=== PATIENT | female | born 1960 | race Caucasian/White ===

== ENCOUNTER → 2016-09-10 10:05 | Outpatient (CLI) | payer OTHER ==
[2015-07-18 07:23] VITALS: BMI 23.0
[~2016-09-10 10:05] MED LIST: ASPIRIN325 MG; ASPIRIN81 MG PO; BYSTOLIC2.5 MG PO; CYCLOBENZAPRINE10 MG PO; FLEXERIL10 MG PO; FUROSEMIDE20 MG PO; KLONOPIN1 MG; METHADOSE10 MG PO; NEURONTIN 300300 MG; NORCO 10/325 TA1 TA1; NORCO 10/325 TA1 TA1 PO; NORVASC10 MG PO; PLAVIX75 MG PO; PRILOSEC20 MG PO; PROZAC40 MG PO; TOFRANIL50 MG; XANAX1 MG PO; ZOCOR20 MG PO
== END | disposition home or self-care (01) ==
LOC: D.CN 10:00 → D.MRI 10:05
DX: R55 Syncope and collapse (principal); I63.139 Cerebral infarction due to embolism of unspecified carotid artery

== ENCOUNTER → 2016-10-19 07:50 | Outpatient (CLI) | payer OTHER ==
[~2016-10-19] VITALS: Ht 180.3 cm; Wt 79.5 kg
--- NOTE | ~2016-10-19 | HEMODYNAMI ---
PATIENT:MACARENA JOSEPH MEDICAL RECORD: [id number] : 58 LOCATION:[facility] ADMISSION DATE: 10/19/16 Generatedon:10/19/201610:58 Patient name: MACARENA JOSEPH Patient #: [id number] SSN: : 1960 Date of study: 10/19/2016 Page: Of Hemodynamic Procedure Report Patient Data Patient Demographics Procedure consent was obtained First Name: MACARENA Gender: Female Last Name: JAKE : 1960 Middle Initial: SACHIN Age: 56 year(s) Patient #: [id number] Race: Additional ID: [id number] Contact details Address: [address] [place] [address] [facility] State: [place] City: [place] Zip code: [address] Past Medical History History of disease Date Diagnosis Comments Peripheral vascular disease Chronic lung disease->COPD CAD Allergies Allergen Reaction Date Comments Reported Other allergy 12/24/2014 sulfa Sulfa drugs 10/19/2016 Admission Admission Data Admission Date: 10/19/2016 Admission Time: 7:50 Lab Results Lab Result Date: 10/19/2016 Lab Result Time: 0:00 Biochemistry Name Units Result Min Max Creatinine mg/dl 1.2 --(---*)-- 0.6 1.3 CBC Name Units Result Min Max Hemoglobin g/dl 14 --(*---)-- 13.5 17.5 Procedure Procedure Types Cath Procedure Diagnostic Procedure [facility] w/Coronaries PCI Procedure Coronary Stent Initial Miscellaneous Procedures Moderate Sedation up to 30 minutes Procedure Description Procedure Date Procedure Date: 10/19/2016 Procedure Start Time: 10:38 Procedure End Time: 10:57 Procedure Staff Name Function Delio Sanford MD Performing Physician Mariam Tracey RT Scrub Altaf Graves RT Scrub Lacho Rich RN Nurse Radha Posey RT Monitor Procedure Data Cath Procedure Fluoroscopy Diagnostic fluoroscopy Total fluoroscopy Time: 2.8 time: 2.8 min min Diagnostic fluoroscopy Total fluoroscopy dose: 347 dose: 347 mGy mGy Contrast Material Contrast Material Type Amount (ml) Isovue 300 119 Entry Location Entry Primary Successful Side Size Upsize Upsize Entry Closure Succes sful Closure Location (Fr) 1 (Fr) 2 (Fr) Remarks Device Remarks Femoral Right 5 Fr 6 Fr Exoseal artery Short Estimated blood loss: 10 ml Diagnostic catheters Device Type Used For End Catheter Placement Cordis 5Fr Pigtail LV Angiography Catheter (MP) Cordis 5Fr JL 4.0 Left Coronary Catheter (MP) Angiography Cordis 5Fr 3DRC Catheter Right Coronary (MP) Angiography Procedure Complications No complications Procedure Medications Medication Administration Route Dosage Oxygen NC 2 l/min Lidocaine 2% added to field 20 Heparin Flush Bag added to field 2 bags (1000units/500ml NS) 0.9% NaCl I.V. 100 ml/hr Versed I.V. 1 mg Fentanyl I.V. 50 mcg Versed I.V. 1 mg Fentanyl I.V. 50 mcg Ancef (1Gm/50ml NS) I.V.P.B 1 g Versed I.V. 1 mg Fentanyl I.V. 50 mcg Heparin Bolus I.V. 4000 units Integrilin (Bolus I.V. 7.3 ml 2mg/ml) Versed I.V. 1 mg Fentanyl I.V. 50 mcg Plavix P.O. 600 mg Hemodynamics Rest HGB: 14 (g/dl) Heart Rate: 49 (bpm) Snapshots Pre Cath Intra NCS Post Cath Vital Signs Time Heart Resp SPO2 NIBP (mmHg) Rhythm Pain Sedation Rate (ipm) (%) Status Level (bpm) 10:24:21 49 15 100 147/79(124) SB 0 (11) 10(A) , No pain 10:28:37 49 19 100 135/77(104) SB 0 (11) 10(A) , No pain 10:32:49 49 17 100 118/71(102) NSR 0 (11) 10(A) , No pain 10:36:57 49 18 96 118/70(108) NSR 0 (11) 10(A) , No pain 10:41:09 49 17 98 110/64(97) NSR 0 (11) 9(A) , No pain 10:45:16 51 16 96 111/65(74) NSR 0 (11) 9(A) , No pain 10:49:26 54 16 94 114/58(84) NSR 0 (11) 9(A) , No pain 10:53:36 56 15 97 110/61(92) NSR 0 (11) 9(A) , No pain 10:57:46 58 18 99 111/59(81) NSR 0 (11) 10(A) , No pain Medications Time Medication Route Dose Verified Delivered Reason Notes Effectiveness by by 10:24:59 Ancef (1Gm/50ml I.V.P.B 1 g Delio Buffie Per physician NS) Juvenal Rich RN 10:28:42 Oxygen NC 2 Delio Buffie used for l/min Juvenal Rich RN procedure 10:28:50 Lidocaine 2% added 20ml Delio Delio for local to vial Juvenal Sanford MD anesthetic field 10:28:56 Heparin Flush added 2 Delio Delio used for Bag to bags Juvenal Sanford MD procedure (1000units/500ml field NS) 10:29:04 0.9% NaCl I.V. 100 Delio Buffie Per physician ml/hr Juvenal Rich RN 10:32:21 Versed I.V. 1 mg Delio Buffie for sedation Juvenal Rich RN 10:32:26 Fentanyl I.V. 50 Delio Buffie for sedation mcg Juvenal Rich RN 10:35:43 Versed I.V. 1 mg Delio Buffie for sedation Juvenal Rich RN 10:35:47 Fentanyl I.V. 50 Delio Buffie for sedation mcg Juvenal Rich RN 10:41:56 Versed I.V. 1 mg Delio Buffie for sedation Juvenal Rich RN 10:41:59 Fentanyl I.V. 50 Delio Buffie for sedation mcg Juvenal Rich RN 10:45:46 Heparin Bolus I.V. 4000 Delio Buffie for verif ied units Juvenal Rich RN anticoagulation with dr sanford 10:47:53 Integrilin I.V. 7.3 Delio Buffie for waste d (Bolus 2mg/ml) ml Juvenal Rich RN antiplatelet 2.7 ml therapy of vial 10:50:39 Versed I.V. 1 mg Delio Buffie for sedation Juvenal Rich RN 10:50:42 Fentanyl I.V. 50 Delio Buffie for sedation mcg Tauth MD Rich RN 10:57:37 Plavix P.O. 600 Delio Monk for mg Juvenal Rich RN antiplatelet therapy Procedure Log Time Note 10:09:38 Lacho Rich RN sent for patient. Start room use. 10:09:45 Time tracking: Regular hours 10:09:49 Plan of Care:Hemodynamics will remain stable., Cardiac rhythm will remain stable., Comfort level will be maintained., Respiratory function will remain adequate., Patient/ family verbilizes understanding of procedure., Procedure tolerated without complication., Recovers from procedure without complications.. 10:17:04 Patient received from Pre/Post Procedure Room to CCL 2 Alert and oriented. Tansferred to table in Supine position. 10:17:05 Warm blankets applied, and shadia hugger turned on for patient comfort. 10:17:05 Correct patient and procedure confirmed by team. 10:17:06 Signed procedure consent form obtained from patient. 10:17:07 ECG and BP/O2 sat monitors applied to patient. 10:17:08 Full Disclosure recording started 10:23:06 Vital chart was started 10:24:59 Ancef (1Gm/50ml NS) 1 g I.V.P.B was administered by Lacho Rich RN; Per physician; 10:26:05 Baseline sample Acquired. 10:26:10 Rhythm: sinus bradycardia 10:26:20 H&P Date Dictated: 09/24/2016 Within 30 days and on chart., H&P Addendum completed by physician on day of procedure. (MUST COMPLETE FOR ALL OUTPATIENTS). 10:26:21 Pre-procedure instructions explained to patient. 10:26:21 Pre-op teaching completed and patient verbalized understanding. 10:26:22 Family in waiting room. 10:26:24 Patient NPO since Midnight. 10:26:39 Patient allergic to Sulfa drugs 10:26:43 Is the patient allergic to Iodine/contrast media? No. 10:26:50 Is patient on blood thinner?No 10:26:54 Patient diabetic? No. 10:26:57 Previous problem with sedation/anesthesia? No ? 10:26:58 Snore? Yes 10:27:01 Sleep apnea? No 10:27:02 Deviated septum? No 10:27:03 Opens mouth fully? Yes 10:27:03 Sticks out tongue? Yes 10:27:06 Airway obstruction? Yes COPD 10:27:14 Dentures? Yes In 10:27:16 Pre procedure: right dorsailis pedis pulse 2+ Normal; easily identifiable; not easily obliterated 10:27:18 Patient pain scale 0/10 ?. 10::23 IV patent on arrival in left hand with 0.9% NaCl at KVO. 10:28:23 Lab Result : Creatinine 1.2 mg/dl 10::23 Lab Result : Hemoglobin 14 g/dl 10:: Lab results completed and on chart. 10:28:29 Right groin area was prepped with chlora-prep and draped in sterile fashion 10:28:30 Alarms reviewed by R. N. 10:28:30 Sharps counted by scrub and verified by R.N. 10:28:34 Use device set Femoral Dx 10:28:34 Acist Syringe opened to sterile field. 10:28:35 Bag Decanter opened to sterile field. 10:28:35 Medline Cath Pack opened to sterile field. 10:28:36 Terumo 5Fr [place] Sheath opened to sterile field. 10:28:36 St Shakeel 260cm J .035 wire opened to sterile field. 10:28:37 Acist Hand Control opened to sterile field. 10:28:38 Acist Manifold opened to sterile field. 10:28:39 Diagnostic Infinity 5Fr Multipack catheter opened to sterile field. 10:28:39 Tegaderm 4 x 4 opened to sterile field. 10:28:42 Oxygen 2 l/min NC was administered by Lacho Rich RN; used for procedure; 10:28:50 Lidocaine 2% 20ml vial added to field was administered by Delio Sanford MD; for local anesthetic; 10:28:56 Heparin Flush Bag (1000units/500ml NS) 2 bags added to field was administered by Delio Sanford MD; used for procedure; 10:29:04 0.9% NaCl 100 ml/hr I.V. was administered by Lacho Rich RN; Per physician; 10:31:10 Final Timeout: patient, procedure, and site verified with staff and physician. All members of the team are in agreement. 10:31:12 Right groin site verified by team. 10:31:19 Physical assessment completed. ASA score P 2 - A patient with mild systemic disease as per Delio Sanford MD. 10:31:22 Sedation plan: IV Moderate Sedation Versed, Fentanyl 10:32:21 Versed 1 mg I.V. was administered by Lacho Rich RN; for sedation; 10:32:26 Fentanyl 50 mcg I.V. was administered by Lacho Rich RN; for sedation; 10:35:35 Zero performed for pressure channel P1 10:35:43 Versed 1 mg I.V. was administered by Lahco Rich RN; for sedation; 10:35:47 Fentanyl 50 mcg I.V. was administered by Lacho Rich RN; for sedation; 10:37:58 Procedure started. 10:38:01 Local anesthetic to right femoral artery with Lidocaine 2% by Delio Sanford MD.INITIAL ACCESS ONLY 10:38:32 A 5 Fr sheath was inserted into the Right Femoral artery 10:40:57 A Cordis 5Fr Pigtail Catheter (MP) was advanced over the wire and used for LV Angiography. 10:41:43 LV gram done using BOO 10:41:48 EF : 60 % 10:41:51 Injector settings: Ml/sec: 10, Volume: 20, 10:41:52 Catheter removed. 10:41:56 Versed 1 mg I.V. was administered by Lacho Rich RN; for sedation; 10:41:59 Fentanyl 50 mcg I.V. was administered by Lacho Rich RN; for sedation; 10:42:19 A Cordis 5Fr JL 4.0 Catheter (MP) was advanced over the wire and used for Left Coronary Angiography. 10:43:34 Catheter removed. 10:43:39 A Cordis 5Fr 3DRC Catheter (MP) was advanced over the wire and used for Right Coronary Angiography. 10:44:16 Catheter removed. 10:44:34 Terumo 6Fr [place] Sheath opened to sterile field. 10:44:35 Merit BasixCompak Inflation Kit opened to sterile field. 10:44:35 Tineo Whisper J 300cm 0.014 guide wire opened to sterile field. 10:45:46 Heparin Bolus 4000 units I.V. was administered by Lacho Rich RN; for anticoagulation; verified with dr sanford 10:47:32 Sheath upsized to a 6 Fr Short. 10:47:47 6 Fr HS I SH guide catheter was inserted over the wire 10:47:53 Integrilin (Bolus 2mg/ml) 7.3 ml I.V. was administered by Lacho Rich RN; for antiplatelet therapy; wasted 2.7 ml of vial 10:47:58 Medtronic Launcher 6Fr HS I SH guide catheter opened to sterile field. 10:48:46 Whisper wire advanced. 10:48:58 Inflation Number: 1 A Medtronic Integrity 3.0 X 15 stent was prepped and advanced across the Mid RCA. The stent was deployed at 15 KEREN for 0:07 (min:sec). 10:49:13 Stent catheter was removed intact over wire. 10:49:13 Wire removed. 10:49:13 Guide catheter removed. 10:49:48 Sheath removed intact; hemostasis achieved with Exoseal to the Right Femoral artery. 10:49:54 Cordis 6Fr Exoseal opened to sterile field. 10:49:57 Procedure ended.(Physican Out) 10:50:39 Versed 1 mg I.V. was administered by Lacho Rich RN; for sedation; 10:50:42 Fentanyl 50 mcg I.V. was administered by Lacho Rich RN; for sedation; 10:51:06 Fluoroscopy time 02.80 minutes. 10:51:21 Fluoroscopy dose: 347 mGy 10:51:21 Flurop Dose total: 347 10:51:25 Contrast amount:Isovue 300 119ml. 10:51:26 Sharps counted by scrub and verified by R.N. 10:51:28 Insertion/operative site no bleeding no hematoma. 10:51:30 Post-op/insertion site Right Femoral artery dressed using a 4 x 4 and Tegaderm. 10:51:33 Post right femoral artery:stable, clean and dry 10:51:40 Post Procedure Pulses reassessed and unchanged 10:51:43 Post-procedure physical assessment completed. ASA score P 2 - A patient with mild systemic disease as per Delio Sanford MD. 10:51:45 Post procedure rhythm: unchanged. 10:51:48 Estimated blood loss: 10 ml 10:51:49 Post procedure instruction explained to patient.Patient verbalizes understanding. 10:51:49 Patient needs reinforcement of post procedure teaching. 10:52:02 Procedure type changed to Cath procedure, Diagnostic procedure, LHC, LHC w/Coronaries, PCI procedure, Coronary Stent Initial, Miscellaneous Procedures, Moderate Sedation up to 30 minutes 10:52:07 Procedure Complication : No complications 10:52:09 See physician's report for complete and final results. 10:54:18 Procedure and supply charges have been captured, reviewed, submitted and are correct. 10:56:58 Vital chart was stopped 10:57:02 Report given to Pre/Post Procedure Room. 10:57:08 Patient transfered to Pre/Post Procedure Room with Stretcher. 10:57:27 Procedure ended. 10:57:27 Full Disclosure recording stopped 10:57:31 End room use (Document Last) 10:57:37 Plavix 600 mg P.O. was administered by Lacho Rich RN; for antiplatelet therapy; Intervention Summary Intervention Notes Time ActionType Lesion and Equipment Action# Pressure Duration Attributes Used 10:48:58 Place stent Mid RCA Medtronic 1 15 00:07 Integrity 3.0 X 15 stent Device Usage Item Name Manufacture Quantity Catalog Hospital Part Current Minimal L ot# / Number Charge Number Stock Stock Serial# Code Acist Acist 1 15923 [id number] 373051 283124 20 Syringe Medical Systems Inc Bag Microtek 1 2002S 549727 80151 230781 5 Mobile[employer] Inc. Medline Cardinal 1 [id number] 859908 59692 460930 5 Cath Pack Health Terumo 5Fr Terumo 1 [id number] 028895 414078 036946 [address] Shakeel 1 [id number] 801891 675316 474048 30 260cm J .035 wire Acist Hand Acist 1 86503 838653 979036 387608 5 Diagnosia Medical Systems Inc Acist Acist 1 11781 539118 472247 068597 5 ITADSecurity Medical [employer] Inc Diagnostic Cardinal 1 [id number] 646558 85284 593787 30 Infinity Health 5Fr Multipack catheter Tegaderm 4 3M 1 1626W 058952 173943 772982 5 x 4 Cordis 5Fr Cardinal 1 684345 5 Pigtail Health Catheter (MP) Cordis 5Fr Cardinal 1 [id number] 5 JL 4.0 Health Catheter (MP) Cordis 5Fr Cardinal 1 617277 5 3DRC Health Catheter (MP) Terumo 6Fr Terumo 1 YOU214 504104 486139 261852 40 [place] Sheath Merit Merit 1 [id number] 558829 286385 684994 15 Flexenclosure Medical Inflation Kit Tineo Tineo 1 [id number] 149972 987930 849919 5 Whisper J Vascular 300cm 0.014 guide wire Medtronic Medtronic 1 [id number] 446904 67024 423027 1 Launcher 6Fr HS I SH guide catheter Medtronic Medtronic 1 [id number] 716925 213553 1 0 [id number] Integrity 3.0 X 15 stent Cordis 6Fr Cardinal 1 [id number] 305491 068742 304725 10 [facility] Signature Audit Manito Stage Time Signature Unsigned Intra-Procedure 10/19/2016 Radha 10:58:15 AM Counts RT(R) Signatures Monitor : Radha Signature : Counts RT Date : Time : [place] [id number]
[~2016-10-19 07:50] MED LIST changes: +ASPIRIN325 MG PO; +BAYER CHEWABLE81 MG PO; +PEPCID20 MG PO; +ROBINUL FORTE2 MG PO; +XANAX XR2 MG PO
[2016-10-19 08:41] VITALS: BP 110/75; Ht 180.3 cm; Wt 79.5 kg
[2016-10-19 09:21] LABS: HEMATOCRIT 40.6 % (36.0-48.0); LYMPHOCYTES 38.1 % (15-50); MCHC 34.5 g/dL (31.0-37.0); MCV 92.9 fL (80.0-100.0); MEAN PLATELET VOLUME 9.2 fL (7.4-10.4); NEUTROPHILS 55.9 % (40-80); PLATELET COUNT 232 10x3/uL (130-400); RBC 4.37 10x6/uL (4.00-5.40); RDW 14.4 % (11.5-14.5); WBC 8.3 10x3/uL (4.8-10.8)
[2016-10-19 09:30] LABS: ANION GAP 8.5 mmol/L (8-16); CALCIUM 8.9 mg/dL (8.5-10.1); CARBON DIOXIDE 29.7 mmol/L (21.0-32.0); CREATININE - SERUM 1.2 mg/dL (0.6-1.3); POTASSIUM - SERUM 4.2 mmol/L (3.5-5.1)
--- NOTE | 2016-10-19 11:27 | NUR ---
1105 REVEIVED PT FROM [employer]. PT IS SLEEPING, AWAKENS EASILY TO VERBAL STIMULI. RR EVEN AND UNLABORED, ON O2 AT 2 LPM. DENIES ANY C/O CHEST PAIN, SINUS BRADYCARDIA WITH RATE OF 58. DRESSING TO RIGHT GROIN IS CDI, NO BLEEDING OR HEMATOMA NOTED TO SITE. PEDAL PULSES PALPABLE, CAP REFILL IS BRISK. CALL LIGHT IN REACH, PT DENIES NEEDS AT THIS TIME. 1120 RIGHT GROIN REMAINS CDI, NO BLEEDING OR HEMATOMA NOTED. PEDAL PULSES PALPABLE. CALL LIGHT IN REACH.
--- NOTE | 2016-10-19 11:35 | NUR ---
1135 RIGHT GROIN DRESSING IS CDI, NO BLEEDING OR HEMATOMA AT SITE. PEDAL PULSES PALPABLE. DENIES ANY C/O. AT BEDSIDE.
--- NOTE | 2016-10-19 11:38 | NUR ---
1136 PO FLUIDS SERVED. PT DENIES ANY C/O NAUSEA.
--- NOTE | 2016-10-19 12:06 | NUR ---
1200 RIGHT GROIN DRESSING REMAINS CDI, AREA IS SOFT AND NONTENDER. PT DENIES ANY C/O. PEDAL PULSES PALPABLE. AT BEDSIDE. CALL LIGHT IN REACH.
--- NOTE | 2016-10-19 12:35 | NUR ---
1235 PT WATCHING TV WITH HSUBAND, DENIES ANY C/O. DRESSING TO RIGHT GROIN IS CDI, AREA IS SOFT AND NONTENDER. PEDAL PULSES PALPABLE. PT DENIES ANY C/O. TIMO PO FLUIDS. CALL LIGHT IN REACH.
--- NOTE | 2016-10-19 13:18 | NUR ---
1310 PT ASSISTED ONTO BEDPAN X 2 NURSES. VOIDED APPROX 300 CC CLEAR YELLOW URINE. RIGHT GROIN STABLE, AREA SOFT AND NONTENDER. PT DENIES ANY C/O AT THIS TIME. CALL LIGHT IN REACH.
--- NOTE | 2016-10-19 14:36 | NUR ---
1430 HOB ELEVATED 45 DEGREES, PT TIMO SANDWICH WITH NO C/O. RIGHT GROIN STABLE WITH NO BLEEDING OR HEMATOMA NOTED. PEDAL PULSES PALPABLE.
--- NOTE | 2016-10-19 14:48 | NUR ---
1448 IV DC'D WITH CATH INTACT. PT DRESSING FOR DC TO HOME. RIGHT GROIN REMAINS CDI. PT HAS TIMO SANDWICH WITH NO C/O NAUSEA.
--- NOTE | 2016-10-19 15:13 | NUR ---
1500 RIGHT GROIN REMAINS STABLE WITH NO BLEEDING OR HEMATOMA NOTED. REVIEWED DC INSTRUCTIONS WITH PT WHO VERBALIZES UNDERSTANDING. PT ESCORTED TO PRIVATE AUTO VIA WC BY NURSE WITH DRIVING HER HOME.
--- NOTE | 2016-10-23 09:51 | OP ---
PATIENT NAME: MACARENA JOSEPH MEDICAL RECORD: [id number] :58 LOCATION:D.CAT ADMISSION DATE: SURGEON: RACHEL GALICIA MD DATE OF OPERATION: 10/19/2016 PROCEDURES: 1. PTCA stent RCA. 2. Left heart catheterization. 3. Selective coronary angiography. 4. Left ventriculogram. INDICATION: Angina and coronary artery disease. PROCEDURE IN DETAIL: After informed consent was obtained and after detailed explanation of risks, benefits as well as alternative therapies, the patient elected to proceed with angiogram and angioplasty. The right femoral area was prepped and draped in normal sterile fashion. The right femoral artery was cannulated via modified Seldinger technique with placement of 6-Burmese sheath. All catheters exchanged through this sheath. FINDINGS: Left ventriculogram was performed in standard 30-degree BOO view, reveals good cardiac wall motion throughout all segments. Overall ejection fraction estimated at 60%. SELECTIVE CORONARY ANGIOGRAPHY: 1. Left main showed no significant angiographic disease. 2. Left anterior descending has 80% stenosis proximally, followed by a previously placed stent that is widely patent. 3. Left circumflex shows moderate irregularities, but no flow-limiting stenosis. 4. The right coronary has an 80% stenosis in the mid vessel. PERCUTANEOUS TRANSLUMINAL CORONARY ANGIOPLASTY STENT OF THE RIGHT CORONARY: The stent used was a 3.0 x 15 mm Integrity. Result was 0% residual stenosis. OVERALL IMPRESSION: Successful percutaneous transluminal coronary angioplasty stent of the right coronary artery going from 80% initial stenosis to 0% residual. TRANSINT:[id number] Voice Confirmation ID: [id number] DOCUMENT ID: [id number] RACHEL GALICIA MD at 0951 CC: [id number] DICTATION DATE: 10/19/16 1054 CLINICAL TRAINING COORDINATOR: 10/19/16 1656 [facility] CLI 10/19/16 [place] [address]
== END | disposition home or self-care (01) ==
LOC: D.CATH 07:50
PROVIDERS: Internal Medicine Interventional Cardiology
DX: I25.10 Atherosclerotic heart disease of native coronary artery without angina pectoris (principal); R55 Syncope and collapse; I10 Essential (primary) hypertension; Z01.812 Encounter for preprocedural laboratory examination

== ENCOUNTER 2016-10-22 07:50 | Outpatient (CLI) | payer OTHER ==
[~2016-10-22] VITALS: Ht 180.3 cm; Wt 79.5 kg
--- NOTE | ~2016-10-22 | HEMODYNAMI ---
PATIENT:MACARENA JOSEPH MEDICAL RECORD: [id number] : 58 LOCATION:D[facility] ADMISSION DATE: 10/22/16 Generatedon:10/22/201610:43 Patient name: MACARENA JOSEPH Patient #: [id number] SSN: : 1960 Date of study: 10/22/2016 Page: Of Hemodynamic Procedure Report Patient Data Patient Demographics First Name: MACARENA Gender: Female Last Name: JAKE : 1960 [facility] Initial: SACHIN Age: 56 year(s) Patient #: [id number] Race: Additional ID: [id number] Contact details Address: [address] [place] [address] [facility] State: [place] City: [place] Zip code: [address] Past Medical History History of disease Date Diagnosis Comments Peripheral vascular disease Chronic lung disease->COPD CAD Allergies Allergen Reaction Date Comments Reported Other allergy 12/24/2014 sulfa Sulfa drugs 10/19/2016 Admission Admission Data Admission Date: 10/22/2016 Admission Time: 7:50 Lab Results Lab Result Date: 10/19/2016 Lab Result Time: 0:00 Biochemistry Name Units Result Min Max Creatinine mg/dl 1.2 --(---*)-- 0.6 1.3 CBC Name Units Result Min Max Hemoglobin g/dl 14 --(*---)-- 13.5 17.5 Procedure Procedure Types Cath Procedure Diagnostic Procedure PPM/ICD Loop Recorder Implant PCI Procedure Coronary Stent Initial Miscellaneous Procedures Moderate Sedation up to 30 minutes Procedure Description Procedure Date Procedure Date: 10/22/2016 Procedure Start Time: 10:19 Procedure End Time: 10:42 Procedure Staff Name Function Delio Sanford MD Performing Physician Jorge Sky RT Scrub Lacho Rich RN Nurse Radha Posey RT Monitor Procedure Data Cath Procedure Fluoroscopy Diagnostic fluoroscopy Total fluoroscopy Time: 1.4 time: 1.4 min min Diagnostic fluoroscopy Total fluoroscopy dose: dose: 40.55 mGy 40.55 mGy Contrast Material Contrast Material Type Amount (ml) Isovue 300 32 Entry Location Entry Primary Successful Side Size Upsize Upsize Entry Closure Succes sful Closure Location (Fr) 1 (Fr) 2 (Fr) Remarks Device Remarks Femoral Left 6 Fr Exoseal artery Short Estimated blood loss: 5 ml Procedure Complications No complications Procedure Medications Medication Administration Route Dosage Oxygen NC 2 l/min Lidocaine 2% added to field 20 Heparin Flush Bag added to field 2 bags (1000units/500ml NS) 0.9% NaCl I.V. 100 ml/hr Ancef (1Gm/50ml NS) I.V.P.B 1 g Versed I.V. 2 mg Fentanyl I.V. 100 mcg Heparin Bolus I.V. 4000 units Versed I.V. 1 mg Fentanyl I.V. 50 mcg Versed I.V. 1 mg Fentanyl I.V. 50 mcg Versed I.V. 0.5 mg Fentanyl I.V. 25 mcg Hemodynamics Rest HGB: 14 (g/dl) Heart Rate: 51 (bpm) Snapshots Pre Cath Intra NCS Post Cath Vital Signs Time Heart Resp SPO2 NIBP (mmHg) Rhythm Pain Sedation Rate (ipm) (%) Status Level (bpm) 10:00:26 49 16 100 161/86(126) NSR 0 (11) 10(A) , No pain 10:06:34 48 16 100 149/76(112) NSR 0 (11) 10(A) , No pain 10:10:56 47 16 100 138/88(98) NSR 0 (11) 10(A) , No pain 10:15:17 50 19 98 107/81(100) NSR 0 (11) 10(A) , No pain 10:20:32 50 17 93 127/73(88) NSR 0 (11) 10(A) , No pain 10:24:46 52 17 96 146/84(119) NSR 0 (11) 9(A) , No pain 10:29:10 54 16 97 138/76(105) NSR 0 (11) 9(A) , No pain 10:33:26 60 16 95 158/96(133) NSR 0 (11) 9(A) , No pain 10:37:48 62 18 97 148/87(127) NSR 0 (11) 9(A) , No pain 10:42:04 62 16 96 150/88(130) NSR 0 (11) 10(A) , No pain Medications Time Medication Route Dose Verified Delivered Reason Notes Effectiveness by by 10:03:13 Oxygen NC 2 Delio Buffie used for l/min Juvenal Rich RN procedure 10:03:31 Lidocaine 2% added 20ml Delio Delio for local to vial Juvenal Sanford MD anesthetic field 10:03:38 Heparin Flush added 2 Delio Delio used for Bag to bags Juvenal Sanford MD procedure (1000units/500ml field NS) 10:03:46 0.9% NaCl I.V. 100 Delio Buffie Per physician ml/hr Juvenal Rich RN 10:11:13 Ancef (1Gm/50ml I.V.P.B 1 g Delio Buffie used for NS) Juvenal Rich RN procedure 10:16:17 Versed I.V. 2 mg Delio Buffie for sedation Juvenal Rich RN 10:16:23 Fentanyl I.V. 100 Delio Buffie for sedation mcg Juvenal Rich RN 10:20:03 Heparin Bolus I.V. 4000 Delio Buffie for verif ied units Juvenal Rich RN anticoagulation with dr sanford 10:23:24 Versed I.V. 1 mg Delio Buffie for sedation Juvenal Rich RN 10:23:28 Fentanyl I.V. 50 Delio Buffie for sedation mcg Juvenal Rich RN 10:28:21 Versed I.V. 1 mg Delio Buffie for sedation Juvenal Rich RN 10:28:25 Fentanyl I.V. 50 Delio Buffie for sedation mcg Juvenal Rich RN 10:32:06 Versed I.V. 0.5 Delio Buffie for sedation mg Juvenal Rich RN 10:32:10 Fentanyl I.V. 25 Delio Buffie for sedation mcg Juvenal Rich RN Procedure Log Time Note 9:44:54 Time tracking: Regular hours 9:44:57 Plan of Care:Hemodynamics will remain stable., Cardiac rhythm will remain stable., Comfort level will be maintained., Respiratory function will remain adequate., Patient/ family verbilizes understanding of procedure., Procedure tolerated without complication., Recovers from procedure without complications.. 9:45:46 Jorge THURSTON(R) (CV) sent for patient. Start room use. 9:55:39 Patient received from Pre/Post Procedure Room to CCL 3 Alert and oriented. Tansferred to table in Supine position. 9:55:41 Warm blankets applied, and shadia hugger turned on for patient comfort. 9:55:41 Correct patient and procedure confirmed by team. 9:55:43 Signed procedure consent form obtained from patient. 9:55:51 ECG and BP/O2 sat monitors applied to patient. 9:59:05 Vital chart was started 9:59:08 Rhythm: sinus rhythm 9:59:09 Full Disclosure recording started 9:59:26 H&P Date Dictated: 09/24/2016 Within 30 days and on chart., H&P Addendum completed by physician on day of procedure. (MUST COMPLETE FOR ALL OUTPATIENTS). 9:59:28 Pre-procedure instructions explained to patient. 9:59:28 Pre-op teaching completed and patient verbalized understanding. 9:59:29 Family in waiting room. 9:59:31 Patient NPO since Midnight. 9:59:36 Is the patient allergic to Iodine/contrast media? No. 9:59:38 Is patient on blood thinner?Yes 9:59:40 ACC The patient was administered the following blood thiners within the last 24 hours: ACCPlavix 10:00:16 Patient diabetic? No. 10:00:19 Previous problem with sedation/anesthesia? No ? 10:00:20 Snore? Yes 10:00:21 Sleep apnea? No 10:00:22 Deviated septum? No 10:00:23 Opens mouth fully? Yes 10:00:23 Sticks out tongue? Yes 10:00:29 Airway obstruction? Yes COPD 10:00:32 Dentures? Yes In 10:00:34 Pre procedure: left dorsailis pedis pulse 2+ Normal; easily identifiable; not easily obliterated 10:00:42 Patient pain scale 0/10 ?. 10:00:47 IV patent on arrival in left hand with 0.9% NaCl at [facility]. 10:00:50 Lab results completed and on chart. 10:00:53 Left groin area was prepped with chlora-prep and draped in sterile fashion 10:00:54 Alarms reviewed by R. N. 10:00:54 Sharps counted by scrub and verified by R.N. 10:01:00 Use device set Femoral PCI 10:01:01 Acist Syringe opened to sterile field. 10:01:02 Acist Hand Control opened to sterile field. 10:01:02 Bag Decanter opened to sterile field. 10:01:02 Medline Cath Pack opened to sterile field. 10:01:03 Terumo 6Fr [place] Sheath opened to sterile field. 10:01:03 St Shakeel 260cm J .035 wire opened to sterile field. 10:01:03 Merit BasixCompak Inflation Kit opened to sterile field. 10:01:04 Acist Manifold opened to sterile field. 10:01:05 Tegaderm 4 x 4 opened to sterile field. 10:01:19 Tineo Whisper J 300cm 0.014 guide wire opened to sterile field. 10:03:13 Oxygen 2 l/min NC was administered by Lacho Rich RN; used for procedure; 10:03:31 Lidocaine 2% 20ml vial added to field was administered by Delio Sanford MD; for local anesthetic; 10:03:38 Heparin Flush Bag (1000units/500ml NS) 2 bags added to field was administered by Delio Sanford MD; used for procedure; 10:03:46 0.9% NaCl 100 ml/hr I.V. was administered by Lacho Rich RN; Per physician; 10:03:59 Baseline sample Acquired. 10:11:13 Ancef (1Gm/50ml NS) 1 g I.V.P.B was administered by Lacho Rich RN; used for procedure; 10:11:27 Physician paged 10:13:34 Zero performed for pressure channel P1 10:14:06 Final Timeout: patient, procedure, and site verified with staff and physician. All members of the team are in agreement. 10:14:09 Left groin site verified by team. 10:14:14 Physical assessment completed. ASA score P 2 - A patient with mild systemic disease as per Delio Sanford MD. 10:14:17 Sedation plan: IV Moderate Sedation Versed, Fentanyl 10:16:17 Versed 2 mg I.V. was administered by Lacho Rich RN; for sedation; 10:16:23 Fentanyl 100 mcg I.V. was administered by Lacho Rich RN; for sedation; 10:19:11 Procedure started. 10:19:14 Local anesthetic to left femerol artery with Lidocaine 2% by Delio Sanford MD.INITIAL ACCESS ONLY 10:19:27 Cordis 6FR XBLAD 3.5 guide catheter opened to sterile field. 10:20:03 Heparin Bolus 4000 units I.V. was administered by Lacho Rich RN; for anticoagulation; verified with dr sanford 10:20:06 A 6 Fr Short sheath was inserted into the Left Femoral artery 10:20:46 6 Fr XBLAD 3.5 guide catheter was inserted over the wire 10::54 Guide Catheter removed. pressure damping. 10:22:03 Cordis 6FR XBLAD 3.5 SH guide catheter opened to sterile field. 10:23:23 6 Fr XBLAD 3.5 SH guide catheter was inserted over the wire 10:23:24 Versed 1 mg I.V. was administered by Lacho Rich RN; for sedation; 10:23:28 Fentanyl 50 mcg I.V. was administered by Lacho Rich RN; for sedation; 10:24:32 Whisper wire advanced. 10:25:01 Inflation Number: 1 A Emil OTW 2.5 x 12 stent was prepped and advanced across the Prox LAD. The stent was deployed at 13 KEREN for 0:10 (min:sec). 10:25:08 Stent catheter was removed intact over wire. 10:25:09 Wire removed. 10:25:10 Guide catheter removed. 10:25:28 Mid Chest area was prepped with chlora-prep and draped in sterile fashion 10:25:51 Patient prepped for Linq device placement 10:25:57 Cordis 6Fr Exoseal opened to sterile field. 10:26:05 Sheath removed intact; hemostasis achieved with Exoseal to the Left Femoral artery. 10:28:01 Medtronic Linq Loop Recorder opened to sterile field. 10:28:21 Versed 1 mg I.V. was administered by Lacho Rich RN; for sedation; 10::25 Fentanyl 50 mcg I.V. was administered by Lacho Rich RN; for sedation; 10:28:35 Lidocaine 2% to mid chest by Delio Sanford MD. 10:28:40 Incision made to mid chest. 10:28:52 Linq was inserted subcutaneously to mid chest. 10:29:40 Medtronic representative Yang Sharif present for procedure. 10:31:48 Dermabond Pen opened to sterile field. 10:32:06 Versed 0.5 mg I.V. was administered by Lacho Rich RN; for sedation; 10:32:10 Fentanyl 25 mcg I.V. was administered by Lacho Rich RN; for sedation; 10:33:34 Mid Chest incision was dressed with Dermabond. 10:33:55 Procedure ended.(Physican Out) 10:34:07 Fluoroscopy time 01.40 minutes. 10:34:11 Flurop Dose total: 40.55 10:34:11 Fluoroscopy dose: 40.55 mGy 10:36:13 Contrast amount:Isovue 300 32ml. 10:36:14 Sharps counted by scrub and verified by R.N. 10:36:17 Insertion/operative site no bleeding no hematoma. 10:36:22 Post-op/insertion site Left Femoral artery dressed using a 4 x 4 and Tegaderm. 10:36:26 Post left femerol artery:stable, clean and dry 10:36:28 Post Procedure Pulses reassessed and unchanged 10:36:31 Post-procedure physical assessment completed. ASA score P 2 - A patient with mild systemic disease as per Delio Sanford MD. 10:36:35 Post procedure rhythm: unchanged. 10:36:37 Estimated blood loss: 5 ml 10:36:39 Post procedure instruction explained to patient.Patient verbalizes understanding. 10:36:39 Patient needs reinforcement of post procedure teaching. 10:36:47 Procedure type changed to Cath procedure, Diagnostic procedure, PPM/ICD, Loop Recorder Implant, PCI procedure, Coronary Stent Initial, Miscellaneous Procedures, Moderate Sedation up to 30 minutes 10:36:54 Procedure Complication : No complications 10:36:58 See physician's report for complete and final results. 10:38:41 Procedure and supply charges have been captured, reviewed, submitted and are correct. 10:41:59 Vital chart was stopped 10:42:01 Report given to Pre/Post Procedure Room. 10:42:04 Patient transfered to Pre/Post Procedure Room with Stretcher. 10:42:06 Procedure ended. 10:42:06 Full Disclosure recording stopped 10:42:09 End room use (Document Last) Intervention Summary Intervention Notes Time ActionType Lesion and Equipment Action# Pressure Duration Attributes Used 10:25:[address] Place stent Prox LAD Emil OTW 1 13 00:10 2.5 x 12 stent Device Usage Item Name Manufacture Quantity Catalog Hospital Part Current Minimal Lot# / Number Charge Number Stock Stock Serial# Code Acist Acist 1 [id number] 243497 244921 304538 20 Syringe Medical Systems Inc Acist Hand Acist 1 12033 911172 364192 135516 5 Control Medical Systems Inc Bag Microtek 1 2002S 163418 96086 438903 5 Decanter Medical Inc. Medline Cardinal 1 [id number] 715511 26268 050373 5 Cath Pack Health Terumo 6Fr Terumo 1 [id number] 108723 883560 986695 [address] St Shakeel 1 277500 030162 983199 377169 30 260cm J .035 wire [facility] 1 [id number] 985611 665529 708538 15 BasixCompak Medical Inflation Kit Acist Acist 1 92755 303408 499370 341061 5 Manifold Medical Systems Inc Tegaderm 4 3M 1 1626W 526514 471515 314213 5 x 4 Tineo Tineo 1 [id number] 745599 061013 103703 5 Whisper J Vascular 300cm 0.014 guide wire Cordis 6FR Cardinal 1 [id number] 887346 196535 278694 10 XBLAD 3.5 Health guide catheter Cordis 6FR Cardinal 1 [id number] 804415 332759 731401 3 XBLAD 3.5 Health SH guide catheter [place] OTW Medtronic 1 [id number] 875249 34715 842681 5 [id number] 2.5 x 12 stent Cordis 6Fr Cardinal 1 EX600 429135 739589 174943 10 Exoseal Health Medtronic Medtronic 1 [id number] 642517 615536 5 [id number] Linq Loop Exp. Recorder 08/22/17 Dermabond Ethicon 1 DNX6 708304 174598 5 Pen Signature Audit Dos Rios Stage Time Signature Unsigned Intra-Procedure 10/22/2016 Radha 10:43:12 AM Counts RT(R) Signatures Monitor : Radha Signature : Counts RT Date : Time : [facility] [address] [place] [address]
[2016-10-22 08:21] LABS: BASOPHILS 0.2 % (0-2); EOSINOPHILS 1.3 % (0-7); HEMATOCRIT 42.2 % (36.0-48.0); HEMOGLOBIN 14.3 g/dL (12-16); IMMATURE GRANULOCYTES 0.4 % (0-5); LYMPHOCYTES 26.3 % (15-50); MCH 32.2 pg (26.0-34.0); MCHC 33.9 g/dL (31.0-37.0); MEAN PLATELET VOLUME 9.9 fL (7.4-10.4); MONOCYTES 7.2 % (2-11); NEUTROPHILS 64.6 % (40-80); PLATELET COUNT 242 10x3/uL (130-400); RBC 4.44 10x6/uL (4.00-5.40); RDW 14.5 % (11.5-14.5)
[2016-10-22 08:23] VITALS: BP 125/79; Ht 180.3 cm; Wt 79.5 kg
[2016-10-22 08:35] LABS: ANION GAP 11.7 mmol/L (8-16); CALCIUM 9.3 mg/dL (8.5-10.1); CARBON DIOXIDE 29.8 mmol/L (21.0-32.0); CREATININE - SERUM 1.1 mg/dL (0.6-1.3); POTASSIUM - SERUM 4.5 mmol/L (3.5-5.1)
--- NOTE | 2016-10-22 11:07 | NUR ---
1055 RECEIVED PT FROM SHOESHINER, PT IS VERY SLEEPY, AWAKENS TO VERBAL STIMULI. DENIES ANY C/O PAIN OR NAUSEA. DRESSING TO LEFT MID CHEST IS CDI, NO BLEEDING OR HEMATOMA NOTED. DRESSING TO LEFT GROIN IS CDI, NO BLEEDING OR HEMATOMA NOTED. PEDAL PULSES PALPABLE, LEFT FOOT IS WARM AND PT DENIES ANY N/V DEFICITS. RR IS EVEN AND UNLABORED, ON O2 AT 2 LPM VIA NC. BP 140/77. PT DENIES ANY C/O AT THIS TIME. AT BEDSIDE. CALL LIGHT IN REACH. INSTRUCTED PT TO KEEP HEAD TO PILLOW AND LEFT LEG STRAIGHT AND PT VERBALIZES UNDERSTANDING.
--- NOTE | 2016-10-22 11:15 | NUR ---
1110 PO FLUIDS SERVED. PT DENIES ANY C/O PAIN OR NAUSEA. DRESSING TO CHEST AND TO LEFT GROIN REMAIN CDI, NO BLEEDING OR HEMATOMA NOTED. AT BEDSIDE, CALL LIGHT IS IN REACH.
--- NOTE | 2016-10-22 11:58 | NUR ---
1140 PT DENIES ANY C/O. BOTH DRESSINGS REMAIN CDI, PEDAL PULSES PALPABLE. TIMO PO FLUIDS WITH NO C/O NAUSEA. RR EVEN AND UNLABORED. VSS.
--- NOTE | 2016-10-22 12:34 | NUR ---
1220 PT DENIES ANY C/O. DRESSINGS REMAIN CDI. LEFT GROIN IS SOFT WITH NO BLEEDING OR HEMATOMA NOTED. PEDAL PULSES PALPABLE. AT BEDSIDE, CALL LIGHT IN REACH.
--- NOTE | 2016-10-22 13:16 | NUR ---
1300 PT DENIES ANY C/O. DRESSINGS REMAIN CDI, LEFT GROIN IS SOFT AND NONTENDER. PEDAL PULSES PALPABLE. CAP REFILL IS BRISK.
--- NOTE | 2016-10-22 14:56 | NUR ---
1400 HOB ELEVATED 45 DEGREES, SANDWICH AND SODA SERVED. PT DENIES ANY C/O A THIS TIME. DRESSINGS CDI. 1430 IV DC'D WITH CATH INTACT. PT AMBULATED TO THE BATHROOM AND VOIDED QS. 1445 DC INSTRUCTIONS REVIEWED WITH PT AND WHO VERBALIZE UNDERSTANDING. PT ESCORTED TO PRIVATE AUTO VIA WC BY STAFF WITH DRIVING HER HOME.
--- NOTE | 2016-10-23 09:51 | OP ---
PATIENT NAME: MACARENA JOSEPH MEDICAL RECORD: [id number] :58 LOCATION:D.CAT ADMISSION DATE: SURGEON: RACHEL GALICIA MD DATE OF OPERATION: 10/22/2016 PROCEDURES: 1. PTCA stent LAD. 2. Selective coronary angiography. 3. LINQ placement. INDICATION: Angina, coronary artery disease, syncope. PROCEDURE IN DETAIL: After informed consent was obtained and after detailed explanation of risks, benefits as well as alternative therapies, the patient elected to proceed with angiogram and angioplasty. The left femoral area was prepped and draped in normal sterile fashion. The right femoral artery was cannulated via modified Seldinger technique with placement of 6-[place]ian sheath. All catheters exchanged through this sheath. FINDINGS: The left anterior descending has 80% stenosis proximally. This was addressed with a 2.5 x 12 mm [place]. Result was 0% residual stenosis. LINQ placement. The LINQ was placed in the left anterior chest with no complications. IMPRESSION: 1. Successful percutaneous transluminal coronary angioplasty stent of the left anterior descending going from 80% initial stenosis to 0% residual stenosis. 2. Successful LINQ placement for recurrent syncope. TRANSINT:[id number] Voice Confirmation ID: [id number] DOCUMENT ID: [id number] RACHEL GALICIA MD at 0951 CC: [id number] DICTATION DATE: 10/22/16 1037 SPRING SALVAGE WORKER: 10/22/16 1622 [facility] CLI 10/22/16 [place] [id number]
== END 2016-10-22 14:45 | disposition home or self-care (01) ==
LOC: D.CATH 07:50
PROVIDERS: Internal Medicine Interventional Cardiology
DX: I25.10 Atherosclerotic heart disease of native coronary artery without angina pectoris (principal); R55 Syncope and collapse; I10 Essential (primary) hypertension; Z01.812 Encounter for preprocedural laboratory examination; F17.200 Nicotine dependence, unspecified, uncomplicated

== ENCOUNTER 2016-11-16 19:47 | Inpatient (IN) | payer OTHER ==
[2016-11-16] VITALS (7 sets, daily range): BP systolic 121–146; BP diastolic 86–100; BMI 23.7
[~2016-11-16] VITALS: Ht 180.3 cm; Wt 77.1 kg
--- NOTE | ~2016-11-16 | DS ---
PATIENT:MACARENA JOSEPH :58 MEDICAL RECORD: [id number] DISCHARGE SUMMARY ADMISSION DATE: 11/16/16 DISCHARGE DATE: DATE OF ADMISSION: 11/16/2016. DATE OF DISCHARGE: 11/18/2016. PROBLEM LIST: 1. Acute myocardial infarction secondary to history of hypertension. 2. Syncope. 3. Dyslipidemia. BRIEF HISTORY AND HOSPITAL COURSE: Admitted with acute anterior myocardial infarction, underwent emergent PTCA stenting, did quite well postoperatively. There was some question of medical compliance additionally. She was counseled strongly on smoking cessation. She will be seen back in the office in 2 weeks. ACTIVITY: As tolerated. We will consider referral to cardiac rehab as outpatient. DIET: AHA diet. TRANSINT:[id number] Voice Confirmation ID: [id number] DOCUMENT ID: [id number] SUZETTE THURMAN MD CC: [id number] DICTATION DATE: 11/18/16 09 COT ASSEMBLER: 11/18/16 1053 ADM IN [facility] [address] [place] [id number]
--- NOTE | ~2016-11-16 | HP ---
PATIENT: MACARENA JOSEPH MEDICAL RECORD: [id number] ACCOUNT: [id number] LOCATION:RAMIRO Bryant.CV01 : 58 ADMISSION DATE: 11/16/16 HISTORY AND PHYSICAL EXAMINATION HISTORY OF PRESENT ILLNESS: A 56-year-old lady with a known history of coronary artery disease, status post intervention, most recent intervention to the LAD, had FAGAN on her at that time, sudden onset of chest pain, noted to have ST elevation in the anterior leads. She is being brought to the analyst microbiology lab on an urgent basis. PAST MEDICAL HISTORY: Includes: 1. History of coronary artery disease. 2. Syncope, unknown etiology, currently has LINQ in place. PHYSICAL EXAMINATION: GENERAL: Uncomfortable female in moderate distress. HEENT: Normocephalic, atraumatic. NECK: No bruits. HEART: Regular. LUNGS: Lung moy are clear. ABDOMEN: Soft, nontender. EXTREMITIES: Pulses 2+. No edema. IMPRESSION: Acute anterior myocardial infarction, suspect proximal previous stent placement. Plan for intervention as indicated. TRANSINT:[id number] Voice Confirmation ID: [id number] DOCUMENT ID: [id number] SUZETTE THURMAN MD CC: [id number] DICTATION DATE: 11/16/162038 CLINICAL LABORATORY TECHNICIAN: 11/16/162135 ADM IN [facility] [address] [place] [id number]
--- NOTE | ~2016-11-16 | HEMODYNAMI ---
PATIENT:MACARENA JOSEPH MEDICAL RECORD: [id number] : 58 LOCATION:[facility] ADMISSION DATE: 11/16/16 Generatedon:11/16/201621:04 Patient name: MACARENA JOSEPH Patient #: [id number] SSN: : 1960 Date of study: 11/16/2016 Page: Of Hemodynamic Procedure Report Patient Data Patient Demographics Procedure consent was obtained First Name: MACARENA Gender: Female Last Name: JAKE : 1960 [facility] Initial: SACHIN Age: 56 year(s) Patient #: [id number] Race: Additional ID: [id number] Contact details [address]: [address] [place] [address] COURT State: [place] City: [place] Zip code: [address] Past Medical History History of disease Date Diagnosis Comments Peripheral vascular disease Chronic lung disease->COPD CAD Allergies Allergen Reaction Date Comments Reported Other allergy 12/24/2014 sulfa Sulfa drugs 10/19/2016 Admission Admission Data Admission Date: 11/16/2016 Admission Time: 19:47 Admit Source: Emergency department Procedure Procedure Types Cath Procedure Diagnostic Procedure C [facility] w/Coronaries PCI Procedure PTCA Initial Miscellaneous Procedures Moderate Sedation up to 15 minutes Procedure Description Procedure Date Procedure Date: 11/16/2016 Procedure Start Time: 20:44 Procedure End Time: 21:03 Procedure Staff Name Function Jesse Goldberg MD Performing Physician Demetria Reynolds RT Scrub Lacho Rich RN Nurse Radha Posey RT Monitor Procedure Data Cath Procedure Fluoroscopy Diagnostic fluoroscopy Total fluoroscopy Time: 2.9 time: 2.9 min min Diagnostic fluoroscopy Total fluoroscopy dose: 324 dose: 324 mGy mGy Contrast Material Contrast Material Type Amount (ml) Isovue 300 47 Entry Location Entry Primary Successful Side Size Upsize Upsize Entry Closure Succes sful Closure Location (Fr) 1 (Fr) 2 (Fr) Remarks Device Remarks Femoral Right 6 Fr Exoseal artery Short Estimated blood loss: 5 ml Diagnostic catheters Device Type Used For End Catheter Placement Diagnostic Infinity 5Fr Right Coronary 3DRC catheter Angiography Diagnostic Infinity 5Fr LV Angiography Pigtail catheter Procedure Complications No complications Procedure Medications Medication Administration Route Dosage Oxygen NC 2 l/min Lidocaine 2% added to field 20 Heparin Flush Bag added to field 2 bags (1000units/500ml NS) 0.9% NaCl I.V. 100 ml/hr Versed I.V. 2 mg Fentanyl I.V. 100 mcg Heparin Bolus I.V. 5000 units Plavix P.O. 600 mg Hemodynamics Rest Heart Rate: 63 (bpm) Pressure Samples Time Site Value (mmHg) Purpose Heart Use Rate(bpm) 20:54 LV 111/28,35 EDP 82 Gradients Valve Time Site Site Mean SEP/DFP Peak To Heart Use 1 2 (mmHg) (sec/min) Peak Rate (mmHg) (bpm) Aortic 20:54 LV AO 83 Snapshots Pre Cath Intra NCS Post Cath Vital Signs Time Heart Resp SPO2 etCO2 SZ3quey NIBP (mmHg) Rhythm Pain Status Sed ation Rate (ipm) (%) (mmHg) (mmHg) Level (bpm) 20:39:46 71 14 98 0 0 139/91(113) NSR 9 (11) , 10( A) Excruciating unbearable 20:44:45 68 20 100 0 0 Measuring NSR 9 (11) , 10( A) Excruciating unbearable 20:44:49 68 18 100 0 0 134/98(111) NSR 9 (11) , 10( A) Excruciating unbearable 20:49:30 86 19 98 0 0 101/69(87) NSR 7 (11) , 10( A) Very intense 20:54:00 81 18 97 0 0 104/75(86) NSR 7 (11) , 10( A) Very intense 20:58:34 109 20 99 0 0 99/75(86) NSR 7 (11) , 10( A) Very intense 21:03:05 78 20 0 0 100/76(85) NSR 0 (11) , No 10( A) pain Medications Time Medication Route Dose Verified Delivered Reason Notes Effectiveness by by 20:30:05 Heparin Flush added 2 Jesse Molina used for Bag to bags [facility] procedure (1000units/500ml field MD ZIMMERMAN NS) 20:30:16 0.9% NaCl I.V. 100 Jesse Monk Per physician ml/hr St. Yovani Rich RN, MD 20:30:51 Oxygen NC 2 Jesse Monk used for l/min [facility]. Yovani Rich RN procedure MD 20:30:59 Lidocaine 2% added 20ml Jesse Molina for local to vial [facility]. Yovani Goldberg anesthetic field MD ZIMMERMAN 20:43:29 Versed I.V. 2 mg Jesse Monk for sedation St. Yovain Rich RN, MD 20:43:34 Fentanyl I.V. 100 Jesse Monk for sedation mcg St. Yovani Rich RN, MD 20:45:33 Heparin Bolus I.V. 5000 Jesse Monk for verifi ed units St. Yovani Rich RN anticoagulation with dr MD castillo 21:00:11 Plavix P.O. 600 [address] for mg [facility] Yovani Rich RN antiplatelet MD therapy Procedure Log Time Note 20:24:44 Diagnostic Cath Status : Emergency 20:24:52 Admit Source: Emergency department 20:25:26 Use device set Femoral PCI 20:30:05 Heparin Flush Bag (1000units/500ml NS) 2 bags added to field was administered by Jesse Goldberg MD; used for procedure; 20:30:16 0.9% NaCl 100 ml/hr I.V. was administered by Lacho Rich RN; Per physician; 20:30:27 Acist Syringe opened to sterile field. 20:30:28 Acist Hand Control opened to sterile field. 20:30:28 Bag Decanter opened to sterile field. 20:30:29 Medline Cath Pack opened to sterile field. 20:30:29 Terumo 6Fr Reliance Sheath opened to sterile field. 20:30:29 St Shakeel 260cm J .035 wire opened to sterile field. 20:30:30 Merit BasixCompak Inflation Kit opened to sterile field. 20:30:30 Acist Manifold opened to sterile field. 20:30:31 Tegaderm 4 x 4 opened to sterile field. 20:30:38 Use device set Multipack Set 20:30:46 Lacho Rich RN sent for patient. Start room use. 20:30:47 Time tracking: Call back 20:30:51 Oxygen 2 l/min NC was administered by Lacho Rich RN; used for procedure; 20:30:56 Plan of Care:Hemodynamics will remain stable., Cardiac rhythm will remain stable., Comfort level will be maintained., Respiratory function will remain adequate., Patient/ family verbilizes understanding of procedure., Procedure tolerated without complication., Recovers from procedure without complications.. 20:30:59 Lidocaine 2% 20ml vial added to field was administered by Jesse Goldberg MD; for local anesthetic; 20:38:57 Vital chart was started 20:39:25 Patient received from ED to CCL 1 Alert and oriented. Tansferred to table in Supine position. 20:39:26 Warm blankets applied, and shadia hugger turned on for patient comfort. 20:39:26 Correct patient and procedure confirmed by team. 20:39:27 Signed procedure consent form obtained from patient. 20:39:28 ECG and BP/O2 sat monitors applied to patient. 20:39:28 Full Disclosure recording started 20:40:16 Baseline sample Acquired. 20:40:20 H&P Date Dictated: 11/16/2016 Emergent; H&P N/A. 20:40:26 Rhythm: sinus rhythm , w/ ST elevation 20:40:30 Pre-procedure instructions explained to patient. 20:40:31 Pre-op teaching completed and patient verbalized understanding. 20:40:32 Family in waiting room. 20:40:34 Patient NPO since Midnight. 20:40:37 Is the patient allergic to Iodine/contrast media? No. 20:40:38 Is patient on blood thinner?Yes 20:40:41 ACC The patient was administered the following blood thiners within the last 24 hours: ACCPlavix 20:40:43 Patient diabetic? No. 20:40:45 Previous problem with sedation/anesthesia? No ? 20:40:46 Snore? Yes 20:40:47 Sleep apnea? No 20:40:48 Deviated septum? No 20:40:48 Opens mouth fully? Yes 20:40:49 Sticks out tongue? Yes 20:40:50 Airway obstruction? No ? 20:40:52 Dentures? No ? 20:40:54 Pre procedure: right dorsailis pedis pulse 2+ Normal; easily identifiable; not easily obliterated 20:40:59 Patient pain scale 9/10 ?. 20:41:06 IV patent on arrival in right forearm with 0.9% NaCl at [facility]. 20:41:09 Lab results completed and on chart. 20:41:12 Right groin area was prepped with chlora-prep and draped in sterile fashion 20:41:13 Alarms reviewed by R. N. 20:41:13 Sharps counted by scrub and verified by R.N. 20:41:14 Final Timeout: patient, procedure, and site verified with staff and physician. All members of the team are in agreement. 20:41:16 Right groin site verified by team. 20:41:19 Physical assessment completed. ASA score P 3 - A patient with severe systemic disease as per Jesse Goldberg MD. 20:41:23 Sedation plan: IV Moderate Sedation Versed, Fentanyl 20:43:29 Versed 2 mg I.V. was administered by Lacho Rich RN; for sedation; 20:43:34 Fentanyl 100 mcg I.V. was administered by Lacho Rich RN; for sedation; 20:44:08 Zero performed for pressure channel P1 20:44:19 Procedure started. 20:44:22 Local anesthetic to right femoral artery with Lidocaine 2% by Jesse Goldberg MD.INITIAL ACCESS ONLY 20:44:29 A 6 Fr Short sheath was inserted into the Right Femoral artery 20:44:39 6 Fr JL 4.0 guide catheter was inserted over the wire 20:45:33 Heparin Bolus 5000 units I.V. was administered by Lacho Rich RN; for anticoagulation; verified with dr castillo 20:46:21 BMW wire advanced. 20:47:54 Inflation number: 1 A [place] Sci [place] 3.0 X 15 balloon was prepped and advanced across the Prox LAD, then inflated to 12 KEREN for 0:07 (min:sec). 20:48:34 Inflation number: 2 The [place] Sci [place] 3.0 X 15 balloon was reinflated across the Prox LAD, to 12 KEREN for 0:10 (min:sec). 20:50:35 Inflation number: 3 The [place] Sci [place] 3.0 X 15 balloon was reinflated across the Prox LAD, to 12 KEREN for 0:43 (min:sec). 20:50:59 Balloon removed over the wire. 20:50:59 Wire removed. 20:51:00 Guide catheter removed. 20:51:21 A Diagnostic Infinity 5Fr 3DRC catheter was advanced over the wire and used for Right Coronary Angiography. 20:52:53 Catheter removed. 20:53:07 A Diagnostic Infinity 5Fr Pigtail catheter was advanced over the wire and used for LV Angiography. 20:54:09 LV gram done using BOO 20:54:11 LV hemodynamics recorded. 20:54:14 Injector settings: Ml/sec: 7, Volume: 15, 20:54:23 EF : 45 % 20:54:51 Catheter removed. 20:54:59 Sheath removed intact; hemostasis achieved with Exoseal to the Right Femoral artery. 20:55:07 Cordis 6Fr Exoseal opened to sterile field. 20:55:12 Procedure ended.(Physican Out) 20:55:23 Fluoroscopy time 02.90 minutes. 20:55:26 Flurop Dose total: 324 20:55:26 Fluoroscopy dose: 324 mGy 20:55:35 Contrast amount:Isovue 300 47ml. 20:58:05 Sharps counted by scrub and verified by R.N. 20:58:07 Insertion/operative site no bleeding no hematoma. 20:58:09 Post-op/insertion site Right Femoral artery dressed using a 4 x 4 and Tegaderm. 20:58:13 Post right femoral artery:stable, clean and dry 20:58:14 Post Procedure Pulses reassessed and unchanged 20:58:18 Post-procedure physical assessment completed. ASA score P 2 - A patient with mild systemic disease as per Jesse Goldberg MD. 20:58:20 Post procedure rhythm: unchanged. 20:58:24 Estimated blood loss: 5 ml 20:58:26 Post procedure instruction explained to patient.Patient verbalizes understanding. 20:58:26 Patient needs reinforcement of post procedure teaching. 20:58:48 Procedure type changed to Cath procedure, Diagnostic procedure, LHC, LHC w/Coronaries, PCI procedure, PTCA Initial, Miscellaneous Procedures, Moderate Sedation up to 15 minutes 20:58:53 Procedure Complication : No complications 20:58:54 See physician's report for complete and final results. 20:59:13 PERCUTANEOUS ENTRY 19GA needle opened to sterile field. 20:59:45 Medtronic Launcher 6Fr JL 4.0 guide catheter opened to sterile field. 20:59:50 Tineo BMW Hull 2 J-tip 300cm 0.014 guide wir opened to sterile field. 21:00:11 Plavix 600 mg P.O. was administered by Lacho Rich RN; for antiplatelet therapy; 21:00:16 Procedure and supply charges have been captured, reviewed, submitted and are correct. 21:03:22 Vital chart was stopped 21:03:25 Report given to CVICU. 21:03:38 Patient transfered to CVICU with Bed. 21:03:42 Procedure ended. 21:03:42 Full Disclosure recording stopped 21:03:47 End room use (Document Last) Intervention Summary Intervention Notes Time ActionType Lesion and Equipment Action# Pressure Duration Attributes Used 20:47:54 Inflate Prox LAD [place] 1 12 00:07 balloon Sci [place] 3.0 X 15 balloon 20:48:34 Reinflate Prox LAD [place] 2 12 00:10 balloon Sci [place] 3.0 X 15 balloon 20:50:35 Reinflate Prox LAD [place] 3 12 00:43 balloon Sci [place] 3.0 X 15 balloon Device Usage Item Name Manufacture Quantity Catalog Number Hospital Part Current Min imal Lot# / Charge Number Stock Stock Serial# Code Acist Acist 1 [id number] [id number] 094844 430651 20 Syringe Medical Systems Inc Acist Hand Acist 1 70247 150116 075320 914441 5 Control Medical Systems Inc Bag Decanter Microtek 1 2002S 857377 19186 090041 5 Medical Inc. Medline Cath Cardinal 1 [id number] 267588 33240 498611 5 Pack Health Terumo 6Fr Terumo 1 [id number] 266203 965654 828497 [address] Shake[address] St Shakeel 1 999833 935620 069553 372206 30 260cm J .035 wire Merit Merit 1 [id number] 317993 204609 206945 15 BasixCompak Medical Inflation Kit Acist Acist 1 47397 996135 661189 880722 5 [employer] Inc Tegaderm 4 x 3M 1 1626W 179820 115841 360745 5 4 [place] Sci [place] 1 [id number] 496165 529329 132880 1 81998980 [place] 3.0 Scientific X 15 balloon Diagnostic Cardinal 1 [id number] 575726 165084 134146 9 Infinity 5Fr Health 3DRC catheter Diagnostic Cardinal 1 [id number] 762189 494669 975217 5 Infinity 5Fr Health Pigtail catheter Cordis 6Fr Cardinal 1 EX600 656576 665191 740278 10 [facility] PERCUTANEOUS [facility] 1 [id number] 644069 957086 5 ENTRY 19GA needle Medtronic Medtronic 1 [id number] 062229 21067 020629 1 Launcher 6Fr JL 4.0 guide catheter Tineo BMW Tineo 1 [id number] 820243 856795 695656 5 Hull 2 Vascular J-tip 300cm 0.014 guide wir Signature Audit Collyer Stage Time Signature Unsigned Intra-Procedure 11/16/2016 Radha 9:04:46 PM Counts RT(R) Signatures Monitor : Radha Signature : Counts RT Date : Time : [place] [address] [place] [address]
--- NOTE | ~2016-11-16 | OP ---
PATIENT NAME: MACARENA JOSEPH MEDICAL RECORD: [id number] :58 LOCATION:[facility] ADMISSION DATE:11/16/16 SURGEON: SUZETTE THURMAN MD DATE OF OPERATION: 11/16/2016 PROCEDURE: Left heart catheterization, selective coronary angiography, right femoral artery approach. CATHETERS: A 5-[place]i sheath, 5/4 right Nicolás, pigtail catheter. We proceeded immediately to emergent PTCA stenting of the LAD. FINDINGS: Left LV shows marked anterior wall hypo to akinesis, overall function is reduced 30%. CORONARY ANATOMY: LEFT MAIN: Left main is free of disease. LAD: Totally occluded in its proximal portion. CIRCUMFLEX: Free of disease. RIGHT CORONARY ARTERY: Dominant artery is free of disease. Previous stenting is widely patent. IMPRESSION: Acute closure. In talking to the patient, noncompliance is definitely contributing factor. PLAN: Emergent intervention. DESCRIPTION OF PROCEDURE: Using indwelling 6-[place] sheath, a JL4 guiding catheter provided excellent support. A Whisper wire was placed across the totally occluded LAD down a portion of this vessel followed by 3.0 x 15 mm Culberson balloon up to 14 atmospheres, one that was established ADILIA flow from 0-[address] segment, some AIVR reperfusion. IMPRESSION: Acute anterior myocardial infarction, subsequent revascularization. We will reiterate the importance of compliance with the patient. TRANSINT:[id number] Voice Confirmation ID: [id number] DOCUMENT ID: [id number] SUZETTE THURMAN MD CC: [id number] DICTATION DATE: 11/16/162105 REVIEW NURSE: 11/16/162149 ADM IN [place] [id number] [place] [address]
[2016-11-16 20:11] LABS: BASOPHILS 0.2 % (0-2); EOSINOPHILS 0.8 % (0-7); HEMATOCRIT 43.2 % (36.0-48.0); HEMOGLOBIN 15.1 g/dL (12-16); IMMATURE GRANULOCYTES 0.3 % (0-5); LYMPHOCYTES 38.5 % (15-50); MCH 32.5 pg (26.0-34.0); MCV 92.9 fL (80.0-100.0); MEAN PLATELET VOLUME 10.1 fL (7.4-10.4); MONOCYTES 6.1 % (2-11); NEUTROPHILS 54.1 % (40-80); PLATELET COUNT 282 10x3/uL (130-400); RBC 4.65 10x6/uL (4.00-5.40); RDW 13.9 % (11.5-14.5); WBC 17.2 10x3/uL (4.8-10.8)
[2016-11-16 20:45] LABS: ALKALINE PHOSPHATASE 102 U/L (46-116); ALT (SGPT) 28 U/L (10-68); BILIRUBIN - TOTAL 0.46 mg/dL (0.2-1.3); CALC OSMOLALITY 280 mosm/kg (275-300); CALCIUM 10.6 mg/dL (8.5-10.1); CARBON DIOXIDE 29.6 mmol/L (21.0-32.0); CHLORIDE - SERUM 100 mmol/L (98-107); CREATININE - SERUM 1.2 mg/dL (0.6-1.3); GLUCOSE 141 mg/dL (74-106); POTASSIUM - SERUM 5.1 mmol/L (3.5-5.1); PROTEIN - SERUM 7.8 g/dL (6.4-8.2); SODIUM 139 mmol/L (136-145); UREA NITROGEN 14 mg/dL (7-18); eGFR NON AFRICAN AMERICAN 49 mL/min (90-120)
[2016-11-16 20:54] LABS: CHOL - HDL RATIO 5.5 ratio (2.3-4.1); CHOLESTEROL, TOTAL 192 mg/dL (0-200); CREATINE KINASE 48 UL (21-215); HDL CHOLESTEROL 35 mg/dL (32-96); LDL CHOLESTEROL 124 mg/dL (0-100); LDL-HDL RATIO 3.5 ratio (1.5-3.5); TRIGLYCERIDE 166 mg/dL (30-200); TROPONIN-I 0.018 ng/mL (0.000-0.060)
--- NOTE | 2016-11-16 21:30 | NUR ---
PT RECVD VIA BED POST PTCA THRU RIGHT GRIN TO ROOM CV01. AWAKE, AOX4. RESP UNLABORED. SPO2 99% ON O2 AT 2 LPM NC. CHEST DISCOMFORT REPORTED. NAUSEA REPORTED. PRN ZOFRAN AND MORPHINE PROVIDED IVP. SR ON THE MONITOR. PULSES PALP X4. RIGHT GROIN SITE SOFT AND INTACT. TEDS/SCDS IN USE. INSTRUCTED TO KEEP RIGHT LEG STRAIGHT. DEMONSTRAITES UNDERSTANDING. C/L IN REACH. CONT CURRENT POC.
[2016-11-17] VITALS (17 sets, daily range): BP systolic 109–140; BP diastolic 86–99; Ht 180.3 cm; Wt 77.1 kg
--- NOTE | 2016-11-17 | NUR ---
RESTING WITH EYES CLOSED. DENIES DISCOMFORT. VSS. PEDAL PULSES PALP. C/L IN REACH. CONT CURRENT POC.
--- NOTE | 2016-11-17 03:00 | NUR ---
REASSESSMENT COMPLETED. SEE FLOWSHEET FOR ALL FINDINGS. RESTING WITH NO DISTRESS. AOX4. RESP EVEN AND UNLABORED. LUNGS CTA. SPO2 99% ON O2 AT 2 LPM NC. SR ON THE MONITOR. RIGHT GROIN SITE SOFT. PULSES PALP. DENIES DISCOMFORT. HOB UP. C/L IN REACH. CONT CURRENT POC.
--- NOTE | 2016-11-17 05:30 | NUR ---
RESTING WITH NO DISTRESS. VSS. PULSES PALP. PIV SALINE LOCKED. DENIES NEEDS. C/L IN REACH. CONT POC.
--- NOTE | 2016-11-17 08:52 | NUR ---
MORPHINE GIVEN FOR CHEST PAIN STATES THAT IT IS GETTING EASIER. RIGHT GROIN DRESSING DRY AND INTACT. NO SWELLING OR DRAINAGE NOTED. SOFT AROUND SITE. ABD SOFT WITH BOWEL SOUNDS. ON BEDPAN VOIDED CLEAR DARK WILLOW URINE. NS STARTED AT 20 ML HOUR RIGHT AC. COMPLAINTS OF NAUSEA ZOFRAN GIVEN. BILATERAL LUNG SOUNDS CLEAR AND EQUAL. ALL PULSES PALABLE. SKIN WARM AND DRY. MONITOR SR. NO ST ELEVATION
--- NOTE | 2016-11-17 10:57 | NUR ---
0900 PATIENT COMPLIANTED OF SEVERE CHEST PAIN A TWISTING PAIN RADIATES TO HER BACK. 12 LEAD EKG DONE, DR. HERNANDEZ HERE, NO CHANGES NOTED. DOES FEEL LIKE IT IS CARDIAC PAIN. PATIENT AGREES IT MIGHT BE HER BACK. PATIENT VERY TEARFUL, STATES SHE FEELS AWFUL. DOES NOT WANT TO GET UP OUT OF BED. ENCOURAGE TO GET OUT OF BED FOR HER BACK PAIN. STATED THE PAIN WAS BETTER GETTING UP. BREAKFAST SERVED. ATE FEW BITES. PO MEDS TAKEN. WANTS TO LAY BACK DOWN. FEELING VERY TIRED. HERE
--- NOTE | 2016-11-17 15:27 | NUR ---
NAPPING WELL THIS AFTERNOON. ORDERS RECEIVED TO TRANSFER TO FLOOR. PATIENT STATES SHE HAS NOT HAD A BM IN 4 DAYS AND FEELS SHE NEEDS SOMETHING. DUCOLAX SUPP REQUESTED, AND ORDERED. HERE INFORMED OF ROOM NUMBER 1547. IV RIGHT AC DC'D PINCHING PATIENT. LEFT AC SALINE LOCK. OXYGEN OFF TO MONITOR PULSE OX. DENIES CHEST PAIN. AMBULATED TO BATHROOM. RIGHT GROIN WITHOUT SWELLING OR DRAINAGE. DRESSING INTACT. AREA IS SORE ON AMBULATION. EXPLAINED THAT IS NORMAL.
--- NOTE | 2016-11-17 16:04 | NUR ---
RECEIVED PT TO ROOM 2116 VIA W/C FROM CVICU IN STABLE CONDITION RESP UNLABORED GENERALIZED WEAKNESS NOTED TELEMETRY 85 SR PT DENIES ANY NEEDS OR DISCOMFORT AT THIS TIME
--- NOTE | 2016-11-17 16:10 | NUR ---
REPORT CALLED TO WILLIAM. TRANSFERED PER WHEEL CHAIR TO ROOM 2115. TELEMETRY APPLIED. PATIENT TOLERATED WELL.
--- NOTE | 2016-11-17 21:07 | NUR ---
PT C/O CONSTIPATION. STATES NOT HAVING A BM FOR 4 DAYS. REQUESTS DULCOLAX SUPP. DULCOLAX SUPP 10 MG 1 UT GIVEN. WILL MONITOR.
[2016-11-18] VITALS: BP 124/90
--- NOTE | 2016-11-18 02:30 | NUR ---
PT RESTING WELL WITHOUT C/O OR DISTRESS NOTED. EYES CLOSED AND RESP EVEN AND UNLABORED. WILL MONITOR.
[2016-11-18 05:55] VITALS: BP 124/88
--- NOTE | 2016-11-18 07:30 | NUR ---
RECEIVED PT IN BED EYES CLOSED RESP UNLABORED SKIN W/D NAD NOTED
[2016-11-18 08:00] VITALS: BP 124/91
[2016-11-18 12:00] VITALS: BP 124/92
--- NOTE | 2016-11-18 13:15 | NUR ---
REVIEWED DISCHARGE INSTRUCTIONS WITH PT AND BOTH STATE UNDERSTANDING COPY GIVEN DCD LAC SALINE LOCK DCD WITH IV CATHETER INTACT SITE FREE OF REDNESS OR EDEMA PT DISCHARGED HOME LEFT UNIT VIA W/C IN STABLE CONDITION WITH ALL PERSONAL BELONGINGS
== END 2016-11-18 13:15 | disposition home or self-care (01) | DRG 251 ==
LOC: D.CATH 19:47 → D.ER 19:47 → EDSTATUS 20:36 → D.CVICU 21:29 → D.CATH 21:30 → D.M2 11-17 16:13
PROVIDERS: Family Medicine; ADMIT Internal Medicine Interventional Cardiology
PROC: B2111ZZ Fluoroscopy of Multiple Coronary Arteries using Low Osmolar Contrast (ICD-10-PCS; 2016-11-16)
PROC: B2151ZZ Fluoroscopy of Left Heart using Low Osmolar Contrast (ICD-10-PCS; 2016-11-16)
PROC: 02703ZZ Dilation of Coronary Artery, One Artery, Percutaneous Approach (ICD-10-PCS; principal; 2016-11-16 20:30)
PROC: 4A023N7 Measurement of Cardiac Sampling and Pressure, Left Heart, Percutaneous Approach (ICD-10-PCS; 2016-11-16 20:30)
DX: I21.09 ST elevation (STEMI) myocardial infarction involving other coronary artery of anterior wall (principal); I25.10 Atherosclerotic heart disease of native coronary artery without angina pectoris; E78.5 Hyperlipidemia, unspecified; Z91.19 Patient's noncompliance with other medical treatment and regimen

== ENCOUNTER 2017-03-29 12:58 | Observation (INO) | payer OTHER ==
[~2017-03-29] VITALS: Ht 175.3 cm; Wt 72.0 kg
--- NOTE | ~2017-03-29 | EC ---
PATIENT:MACARENA JOSEPH DATE OF SERVICE: 03/29/17 SEX: F MEDICAL RECORD: [id number] DATE OF : 58 LOCATION:[facility] AGE OF PATIENT: 56 ADMISSION DATE: 03/29/17 REFERRING PHYSICIAN: INTERPRETING PHYSICIAN: RACHEL SANFORD MD ECHOCARDIOGRAM REPORT ECHO CHARGES 4 ECHO COMPLETE CLINICAL DIAGNOSIS: CHF ECHOCARDIOGRAPHIC MEASUREMENTS (adult normal given) AC root (d.<3.7cm) 3.0 cm LV Septum d (<1.2 cm> 0.7 cm Valve Excursion 1.9 cm LV Septum (systole) 1.0 cm Left Atria (s.<4.0cm> 4.2 cm LVPW d(<1.2cm) 1.1 cm RV (d.<2.3cm) 2.3 cm LVPW (sytole) 1.5 cm LV diastole(<5.6CM) 5.7 cm MV E-F(>70mm/sec) cm LV systole 4.4 cm LVOT Diameter 1.6 cm MV exc.(>10mm) cm Est.ejection fraction (50-75%) % Pericardial Effusion N DOPPLER: LVIT cm/sec A cm/sec E 121 cm/sec LA cm/sec RVSP 20.3 mmHg LVOT 101 cm/sec AOP1/2T m/s Asc. Ao 152 cm/sec RVOT 49.0 cm/sec RA cm/sec PA 65.0 cm/sec AV Gradient Peak 9.3 mmHg AV Mean 4.3 mmHg AV Area 1.4 cm MV Gradient Peak 6.7 mmHg MV Mean 1.6 mmHg MV Area cm COMMENTS: Tank Car Inspector: Daniel KINGOE Manager Reimbursement: 1 Dr. Sanford TAPE# PACS DATE OF SERVICE: 04/01/2017 ECHOCARDIOGRAM DATE OF SERVICE: 04/01/2017 FINDINGS: 1. Left ventricular chamber size is mildly dilated. Left ventricular systolic function is moderately reduced, overall ejection fraction in the 30% to 35% range. ECHOCARDIOGRAM REPORT [id number] MACARENA JOSEPH 2. Left atrium is enlarged at 4.2 cm. Right atrium and right ventricle chamber sizes are as well mildly dilated. 3. Valvular structures have normal structure and motion. 4. Doppler interrogation reveals moderate mitral regurgitation, mild tricuspid regurgitation, no other valvular insufficiency or stenosis and pulmonary systolic pressure is preserved at 28 mmHg. 5. No evidence of pericardial effusion or left ventricular thrombus. TRANSINT:[id number] Voice Confirmation ID: [id number] DOCUMENT ID: [id number] RACHEL SANFORD MD at 1800 CC: [id number] DICTATION DATE: 04/02/17918 MULTI CARE TECHNICIAN: 04/02/17 1117 DIS IN 04/04/17 [place] [id number] [place] [id number]
[2017-03-29 15:06] LABS: APPEARANCE HAZY (CLEAR); BILIRUBIN NEGATIVE (NEGATIVE); COLOR DK YELLOW (YELLOW); GLUCOSE NEGATIVE (NEGATIVE); KETONE NEGATIVE (NEGATIVE); NITRITE NEGATIVE (NEGATIVE); PROTEIN 2+ mg/dL (NEGATIVE); SPECIFIC GRAVITY 1.025 (1.005-1.020)
[2017-03-29 15:08] LABS: BASOPHILS 0.3 % (0-2); EOSINOPHILS 0.9 % (0-7); HEMATOCRIT 42.7 % (36.0-48.0); HEMOGLOBIN 13.9 g/dL (12-16); IMMATURE GRANULOCYTES 0.3 % (0-5); LYMPHOCYTES 33.9 % (15-50); MCH 29.3 pg (26.0-34.0); MCHC 32.6 g/dL (31.0-37.0); MCV 89.9 fL (80.0-100.0); MEAN PLATELET VOLUME 11.6 fL (7.4-10.4); MONOCYTES 7.5 % (2-11); NEUTROPHILS 57.1 % (40-80); PLATELET COUNT 241 10x3/uL (130-400); RBC 4.75 10x6/uL (4.00-5.40); RDW 17.5 % (11.5-14.5); WBC 7.4 10x3/uL (4.8-10.8)
[2017-03-29 15:13] LABS: EPITHELIAL CELLS 0-5 /hpf (0-5); RED CELLS - URINE 0-5 /hpf (0-5); WHITE CELLS - URINE 0-5 /hpf (0-5)
[2017-03-29 15:14] LABS: BACTERIA MANY /hpf (NONE SEEN)
[2017-03-29 15:49] LABS: ALBUMIN 3.5 g/dL (3.4-5.0); ANION GAP 11.7 mmol/L (8-16); BILIRUBIN - TOTAL 1.27 mg/dL (0.2-1.3); CALCIUM 9.6 mg/dL (8.5-10.1); CARBON DIOXIDE 29.3 mmol/L (21.0-32.0); CREATININE - SERUM 1.1 mg/dL (0.6-1.3)
[2017-03-29 17:43] LABS: BASOPHILS 0.3 % (0-2); EOSINOPHILS 0.6 % (0-7); HEMATOCRIT 42.3 % (36.0-48.0); HEMOGLOBIN 13.8 g/dL (12-16); IMMATURE GRANULOCYTES 0.1 % (0-5); LYMPHOCYTES 36.4 % (15-50); MCH 29.5 pg (26.0-34.0); MCHC 32.6 g/dL (31.0-37.0); MCV 90.4 fL (80.0-100.0); MEAN PLATELET VOLUME 11.6 fL (7.4-10.4); MONOCYTES 6.4 % (2-11); NEUTROPHILS 56.2 % (40-80); PLATELET COUNT 229 10x3/uL (130-400); RBC 4.68 10x6/uL (4.00-5.40); RDW 17.7 % (11.5-14.5); WBC 7.1 10x3/uL (4.8-10.8)
[2017-03-29 17:56] LABS: ALBUMIN 3.3 g/dL (3.4-5.0); ANION GAP 12.9 mmol/L (8-16); BILIRUBIN - TOTAL 1.24 mg/dL (0.2-1.3); CALCIUM 8.7 mg/dL (8.5-10.1); CARBON DIOXIDE 25.3 mmol/L (21.0-32.0); POTASSIUM - SERUM 4.2 mmol/L (3.5-5.1); PROTEIN - SERUM 6.7 g/dL (6.4-8.2)
[2017-03-29] MEDS ORDERED: VITAMIN D31000 UNIT PO (19:17)
[2017-03-29] MEDS ORDERED: ALDACTONE25 MG PO (19:18)
[2017-03-29] MEDS ORDERED: ALTACE1.25 MG PO (19:21)
[2017-03-29] MEDS ORDERED: PRILOSEC10 M1 PO (19:23)
[2017-03-29] MEDS ORDERED: LANOXIN125 MCG PO (19:25)
[2017-03-29] MEDS ORDERED: HYDROCODONE-APA1 TAB PO (19:26)
[2017-03-29] MEDS ORDERED: IMODIUM2 MG PO (19:28)
[2017-03-29 20:00] VITALS: BP 134/92
[2017-03-30] VITALS (8 sets, daily range): BP systolic 117–145; BP diastolic 61–97; Ht 175.3 cm; Wt 72.0 kg
[2017-03-30 06:41] LABS: HEMATOCRIT 40.1 % (36.0-48.0); HEMOGLOBIN 12.7 g/dL (12-16); LYMPHOCYTES 26.7 % (15-50); MCH 28.5 pg (26.0-34.0); MCHC 31.7 g/dL (31.0-37.0); MCV 90.1 fL (80.0-100.0); MEAN PLATELET VOLUME 11.3 fL (7.4-10.4); NEUTROPHILS 64.2 % (40-80); PLATELET COUNT 159 10x3/uL (130-400); RBC 4.45 10x6/uL (4.00-5.40); RDW 18.7 % (11.5-14.5); WBC 6.2 10x3/uL (4.8-10.8)
[2017-03-30 06:43] LABS: ALBUMIN 2.9 g/dL (3.4-5.0); ANION GAP 16.1 mmol/L (8-16); BILIRUBIN - TOTAL 1.11 mg/dL (0.2-1.3); CALCIUM 8.5 mg/dL (8.5-10.1); CARBON DIOXIDE 22.6 mmol/L (21.0-32.0); CREATININE - SERUM 0.9 mg/dL (0.6-1.3); POTASSIUM - SERUM 3.7 mmol/L (3.5-5.1); PROTEIN - SERUM 5.9 g/dL (6.4-8.2)
[2017-03-31 05:16] LABS: BASOPHILS 0.2 % (0-2); EOSINOPHILS 2.2 % (0-7); HEMATOCRIT 38.1 % (36.0-48.0); HEMOGLOBIN 12.2 g/dL (12-16); LYMPHOCYTES 33.3 % (15-50); MCH 28.7 pg (26.0-34.0); MCV 89.6 fL (80.0-100.0); MEAN PLATELET VOLUME 10.9 fL (7.4-10.4); NEUTROPHILS 55.3 % (40-80); PLATELET COUNT 166 10x3/uL (130-400); RBC 4.25 10x6/uL (4.00-5.40); RDW 17.7 % (11.5-14.5); WBC 5.9 10x3/uL (4.8-10.8)
[2017-03-31 05:36] LABS: CALC OSMOLALITY 286 mosm/kg (275-300); CALCIUM 8.6 mg/dL (8.5-10.1); CARBON DIOXIDE 23.3 mmol/L (21.0-32.0); CHLORIDE - SERUM 111 mmol/L (98-107); CREATININE - SERUM 0.8 mg/dL (0.6-1.3); GLUCOSE 88 mg/dL (74-106); POTASSIUM - SERUM 3.4 mmol/L (3.5-5.1); SODIUM 145 mmol/L (136-145); UREA NITROGEN 9 mg/dL (7-18); eGFR NON AFRICAN AMERICAN 78 mL/min (90-120)
[2017-03-31 07:57] VITALS: BP 107/85
[2017-03-31 12:34] VITALS: BP 136/88
[2017-03-31 15:45] VITALS: BP 137/88
[2017-03-31 20:00] VITALS: BP 127/73
[2017-04-01 04:00] VITALS: BP 103/72
[2017-04-01 05:45] LABS: BASOPHILS 0.1 % (0-2); EOSINOPHILS 1.6 % (0-7); HEMATOCRIT 41.6 % (36.0-48.0); HEMOGLOBIN 13.6 g/dL (12-16); IMMATURE GRANULOCYTES 0.3 % (0-5); MCH 29.2 pg (26.0-34.0); MCHC 32.7 g/dL (31.0-37.0); MCV 89.3 fL (80.0-100.0); MEAN PLATELET VOLUME 11.3 fL (7.4-10.4); MONOCYTES 10.7 % (2-11); NEUTROPHILS 56.3 % (40-80); PLATELET COUNT 177 10x3/uL (130-400); RBC 4.66 10x6/uL (4.00-5.40); RDW 17.6 % (11.5-14.5)
[2017-04-01 05:49] LABS: WBC 7.4 10x3/uL (4.8-10.8)
[2017-04-01 05:54] LABS: ANION GAP 11.6 mmol/L (8-16); CALCIUM 9.4 mg/dL (8.5-10.1); POTASSIUM - SERUM 3.3 mmol/L (3.5-5.1)
[2017-04-01 05:55] LABS: CARBON DIOXIDE 33.7 mmol/L (21.0-32.0)
[2017-04-01 08:45] VITALS: BP 112/82
[2017-04-01 12:31] VITALS: BP 113/80
[2017-04-01 16:47] VITALS: BP 104/74
[2017-04-02] VITALS: BP 99/69
[2017-04-02 04:00] VITALS: BP 99/66
[2017-04-02 05:57] LABS: BASOPHILS 0.2 % (0-2); EOSINOPHILS 3.3 % (0-7); HEMATOCRIT 47.1 % (36.0-48.0); HEMOGLOBIN 15.4 g/dL (12-16); IMMATURE GRANULOCYTES 0.2 % (0-5); LYMPHOCYTES 35.2 % (15-50); MCH 29.3 pg (26.0-34.0); MCHC 32.7 g/dL (31.0-37.0); MCV 89.5 fL (80.0-100.0); MEAN PLATELET VOLUME 11.4 fL (7.4-10.4); NEUTROPHILS 48.1 % (40-80); PLATELET COUNT 191 10x3/uL (130-400); RBC 5.26 10x6/uL (4.00-5.40); RDW 17.5 % (11.5-14.5); WBC 6.4 10x3/uL (4.8-10.8)
[2017-04-02 06:15] LABS: ALBUMIN 3.5 g/dL (3.4-5.0); ANION GAP 12.2 mmol/L (8-16); BILIRUBIN - TOTAL 1.6 mg/dL (0.2-1.3); CALCIUM 9.6 mg/dL (8.5-10.1); CARBON DIOXIDE 35.9 mmol/L (21.0-32.0); CREATININE - SERUM 1.2 mg/dL (0.6-1.3); POTASSIUM - SERUM 3.1 mmol/L (3.5-5.1); PROTEIN - SERUM 7.3 g/dL (6.4-8.2)
[2017-04-02 09:02] VITALS: BP 90/58
[2017-04-02 11:14] LABS: MAGNESIUM - SERUM 1.5 mg/dL (1.8-2.4); PHOSPHOROUS 4.8 mg/dL (2.5-4.9)
[2017-04-02 12:45] VITALS: BP 107/79
[2017-04-02 17:19] VITALS: BP 109/69
[2017-04-03] VITALS: BP 98/67
[2017-04-03 04:00] VITALS: BP 98/67
[2017-04-03 05:30] LABS: BASOPHILS 0.3 % (0-2); EOSINOPHILS 2.8 % (0-7); HEMATOCRIT 43.2 % (36.0-48.0); IMMATURE GRANULOCYTES 0.1 % (0-5); LYMPHOCYTES 33.3 % (15-50); MCH 28.9 pg (26.0-34.0); MCHC 32.4 g/dL (31.0-37.0); MCV 89.1 fL (80.0-100.0); MEAN PLATELET VOLUME 11.1 fL (7.4-10.4); MONOCYTES 12.9 % (2-11); NEUTROPHILS 50.6 % (40-80); PLATELET COUNT 185 10x3/uL (130-400); RBC 4.85 10x6/uL (4.00-5.40); RDW 17.3 % (11.5-14.5); WBC 6.8 10x3/uL (4.8-10.8)
[2017-04-03 05:54] LABS: ALBUMIN 2.9 g/dL (3.4-5.0); ANION GAP 9.6 mmol/L (8-16); BILIRUBIN - TOTAL 0.9 mg/dL (0.2-1.3); CALCIUM 8.6 mg/dL (8.5-10.1); CARBON DIOXIDE 36.6 mmol/L (21.0-32.0); POTASSIUM - SERUM 3.2 mmol/L (3.5-5.1); PROTEIN - SERUM 6.2 g/dL (6.4-8.2)
[2017-04-03 08:01] VITALS: BP 104/70
[2017-04-03 12:20] VITALS: BP 85/65
[2017-04-03 17:02] VITALS: BP 93/63
[2017-04-03 20:25] VITALS: BP 108/79
[2017-04-04 01:01] VITALS: BP 107/74
[2017-04-04 05:17] LABS: BASOPHILS 0.3 % (0-2); EOSINOPHILS 3.5 % (0-7); HEMATOCRIT 42.6 % (36.0-48.0); HEMOGLOBIN 13.8 g/dL (12-16); IMMATURE GRANULOCYTES 0.1 % (0-5); MCH 28.9 pg (26.0-34.0); MCHC 32.4 g/dL (31.0-37.0); MCV 89.3 fL (80.0-100.0); MONOCYTES 14.7 % (2-11); NEUTROPHILS 46.4 % (40-80); PLATELET COUNT 192 10x3/uL (130-400); RBC 4.77 10x6/uL (4.00-5.40); RDW 17.2 % (11.5-14.5); WBC 7.7 10x3/uL (4.8-10.8)
[2017-04-04 06:00] VITALS: BP 103/70
[2017-04-04 06:06] LABS: ALBUMIN 2.9 g/dL (3.4-5.0); ANION GAP 9.4 mmol/L (8-16); BILIRUBIN - TOTAL 0.57 mg/dL (0.2-1.3); CALCIUM 9.1 mg/dL (8.5-10.1); CARBON DIOXIDE 36.5 mmol/L (21.0-32.0); POTASSIUM - SERUM 3.9 mmol/L (3.5-5.1); PROTEIN - SERUM 6.5 g/dL (6.4-8.2)
[2017-04-04 06:07] LABS: CREATININE - SERUM 1.3 mg/dL (0.6-1.3)
[2017-04-04 07:52] VITALS: BP 90/62
[2017-04-04 12:11] VITALS: BP 107/69
[2017-04-04] MEDS ORDERED: NICODERM C1 PATCH .3 TRANSDERM (13:12)
[2017-04-04] MEDS ORDERED: OMNICEF300 MG PO (13:13)
[2017-04-04] MEDS ORDERED: LASIX40 MG PO (13:13)
== END 2017-04-04 15:14 | disposition home health service (06) ==
LOC: D.ER 12:58 → D.MS 17:37 → OBSVTIME 17:37 → D.MS 17:37
PROVIDERS: Family Medicine; Internal Medicine Nephrology
DX: N39.0 Urinary tract infection, site not specified (principal); I25.5 Ischemic cardiomyopathy; I11.0 Hypertensive heart disease with heart failure; I50.23 Acute on chronic systolic (congestive) heart failure; Z95.5 Presence of coronary angioplasty implant and graft; Z86.73 Personal history of transient ischemic attack (TIA), and cerebral infarction without residual deficits; J44.0 Chronic obstructive pulmonary disease with (acute) lower respiratory infection; K21.9 Gastro-esophageal reflux disease without esophagitis; E86.0 Dehydration; R19.7 Diarrhea, unspecified; R34 Anuria and oliguria; E87.6 Hypokalemia; I25.10 Atherosclerotic heart disease of native coronary artery without angina pectoris; F17.200 Nicotine dependence, unspecified, uncomplicated

== ENCOUNTER → 2017-05-29 11:10 | Outpatient (CLI) | payer OTHER ==
[2017-03-30 13:40] VITALS: BMI 21.7
[~2017-05-29 11:10] MED LIST changes: +ALDACTONE25 MG PO; +ALTACE1.25 MG PO; -BYSTOLIC2.5 MG PO; +BYSTOLIC5 MG PO; +HYDROCODONE-APA1 TAB PO; +IMODIUM2 MG PO; +LANOXIN125 MCG PO; +LASIX40 MG PO; +NICODERM C1 PATCH .3 TRANSDERM; +OMNICEF300 MG PO; +PRILOSEC10 M1 PO; +VITAMIN D31000 UNIT PO
== END | disposition home or self-care (01) ==
LOC: D.RAD 11:10
DX: R06.02 Shortness of breath (principal)

== ENCOUNTER 2017-06-03 05:08 | Day surgery (SDC) | payer OTHER ==
[~2017-06-03] VITALS: Ht 180.3 cm; Wt 62.1 kg
--- NOTE | ~2017-06-03 | OP ---
PATIENT NAME: MACARENA JOSEPH MEDICAL RECORD: [id number] :58 LOCATION:.[facility] ADMISSION DATE: SURGEON: ELIER JARAMILLO MD DATE OF OPERATION: 06/03/2017 SURGEON: Elier Jaramillo MD ASSISTANT PROFESSOR OF DIETETICS: CARINE Bocanegra. OPERATION PERFORMED: Removal of subcutaneous Link monitoring device. PREOPERATIVE DIAGNOSIS: Syncope. POSTOPERATIVE DIAGNOSIS: Syncope. ANESTHESIA: Monitored anesthesia care with intravenous Versed and local 10 cc of 1% Xylocaine. COMPLICATIONS: None. SPECIMEN: Device disposed off after consultation with [employer]. CONDITION: Stable. DISPOSITION: Outpatient surgery and home. OPERATIVE FINDINGS: Device removed intact. INDICATION: Device placed at time of cardiac catheterization, no longer monitored. DESCRIPTION OF PROCEDURE: The patient was brought to the operating suite. Intravenous sedation was given. The chest was prepped and draped. A 1% Xylocaine was used for local anesthetic. A 2 mm skin incision was made. The device was grasped and removed. Direct pressure was held to prevent bleeding in the pocket and the skin site was closed, covered with Dermabond and a pressure dressing was applied. The patient was stable to recovery room. TRANSINT:[id number] Voice Confirmation ID: [id number] DOCUMENT ID: [id number] ELIER JARAMILLO MD at 1402 CC: RACHEL GALICIA [id number] DICTATION DATE: 06/03/17 1342 CONTRACT ASSISTANT: 06/03/17 1508 [facility] 06/03/[address] [id number]
--- NOTE | ~2017-06-03 | HP ---
PATIENT: MACARENA JOSEPH MEDICAL RECORD: [id number] ACCOUNT: [id number] LOCATION:D.OPS : 58 ADMISSION DATE: 06/03/17 HISTORY AND PHYSICAL EXAMINATION MACARENA Miller (56yo, F) ID# [id number]. Date/Time05/29/2017 10:58BXICB73/14/1961Service Dept.NPP_[facility] ClinicProviderTIFFANIE JARAMILLO MDInsuranceMed Primary: [facility] () Insurance # : [id number] Referring Provider Name : GUILLERMO SIBLEY Employer Name : RETIRED Med Secondary: [employer] ( SUPPLEMENT) Insurance # : [id number] Policy/Group # : [id number] Referring Provider Name : MARGARET PEREA FNP Employer Name : RETIRED Prescription: ESI1 - Member is eligible. Chief Complaint Chest pain eval for LINQ device removal Patient's Care Team Referring Provider (): GUILLERMO SIBLEY[facility] [id number] [facility] [place] [address], , Referring Provider (): MARGARET PEREA FNP: [facility], [address] [place] [address] [address] [facility] [place] [address], , Patient's Pharmacies [facility]): [address] [place] [id number], Ph , Vitals BP:98/70 sitting L arm 05/29/2017 10:34 am 96/72 sitting R arm 05/29/2017 10:35 amBP Cuff Size:adult 05/29/2017 10:34 am adult 05/29/2017 10:35 amHR:60,reg 05/29/2017 10:35 amHt:5 ft 11 in 05/29/2017 10:35 amWt:137 lbs 05/29/2017 10:36 amNotes:has had MIs in 2017 fall, has had two others previously. Had pneumonia in Jan 2018 05/29/2017 10:37 amBMI:19.1 05/29/2017 10:36 amAllergies Reviewed Allergies SULFA (SULFONAMIDE ANTIBIOTICS)Medications Reviewed Medications amLODIPine 10 mg tablet Take 0.5 tablet(s) every day by oral route.05/28/17 [facility] Wilsonaspirin 325 mg tablet Take 1 tablet(s) every day by oral route.05/28/17 [facility] WilsonBrilinta 90 mg hdxgay43/18/18 filledMEDCOButrans 20 mcg/hour transdermal patch01/30/17 filledMEDCOButrans 7.5 mcg/hour transdermal patch08/13/16 filledMEDCOBystolic 5 mg tablet Take 1 tablet(s) every day by oral route.05/28/17 [facility] Wilsoncefdinir 300 mg iyaeivf47/08/18 filledMEDCOciprofloxacin 500 mg fvybfc07/08/18 filledMEDCOclindamycin HCl 150 mg dwibxah83/07/17 filledMEDCOclobetasol 0.05 % scalp /01/17 filledMEDCOclopidogrel 75 mg xsosdg49/08/18 thzlajYKZEOmshowyrbnkrsmhr45/17/14 [facility] roncyclobenzaprine 10 mg fyfzyc57/16/17 filledMEDCOdiazePAM 5 mg ofincb10/06/17 filledMEDCOdigoxin 125 mcg sbywct81/08/18 filledMEDCOdoxycycline hyclate 100 mg /29/17 filledMEDCOfamotidine 20 mg tablet Take 1 tablet(s) twice a day by oral route.05/28/17 [facility] WilsonFLUoxetine HISTORY AND PHYSICAL [id number] SLEEPERMACARENA SACHIN 20 mg zkntsol55/08/18 filledMEDCOfurosemide 20 mg qenpvk91/05/17 filledMEDCOfurosemide 40 mg biioth53/08/18 sqldesBJKNRzxkcibjffc03/17/14 [facility] ronglycopyrrolate 2 mg rokyai55/29/17 filledMEDCOHYDROcodone 10 mg-acetaminophen 325 mg tablet Take 1 tablet(s) every 4 hours by oral route.03/21/17 filledMEDCOketoconazole 2 % /27/17 filledMEDCOKlor-Con Sprinkle 10 mEq capsule,extended yoypzug76/14/17 dqixgkTPJJTegsphhxoh74/17/14 Katerina Irizarryronmupirocin 2 % topical dzxohens24/18/17 filledMEDCOnystatin 100,000 unit/mL oral baojsqnjgj20/03/18 wwwdjhTOHSPehxkjllovp06/17/14 Katerina Herronomeprazole 20 mg capsule,delayed venuqqw64/06/17 filledMEDCOondansetron 4 mg disintegrating bzljke06/08/18 filledMEDCOOneTouch UltraSoft Qyfeapz86/07/17 bcwzlnDPNRYGLJqnl87/17/14 Katerina Herronramipril 1.25 mg fettkko65/08/18 filledMEDCOramipril 2.5 mg /25/18 filledMEDCOsimvastatin 20 mg fqsosc12/27/18 filledMEDCOspironolactone 25 mg pkkgiz67/08/18 filledMEDCOterbinafine HCl 250 mg exrber65/29/17 filledMEDCOtriamcinolone acetonide 0.1 % topical cream10/04/16 srtquqLOUUHZdfpf18/17/14 Katerina IrizarryronProblems Reviewed Problems Biliary dyskinesia Pain - Onset: 05/28/2017 - pain at LINQ insertion site Family History Reviewed Family History Non-contributory.Maternal Grandmother- Carcinoma of breast - Heart disease - [place], STROKE - Cerebrovascular accident - Myocardial infarction - [place] X 2Maternal Aunt- Carcinoma of breastPaternal Grandfather- Heart disease ( age: 60) - [place] - Myocardial infarction ( age: 60)Maternal Grandfather- Heart disease ( age: 50) - [place] - Myocardial infarction ( age: 50)Mother- Transient cerebral ischemiaSocial History Reviewed Social History Cardiology Family history of heart disease?: Y Smoking Status: Current every day smoker Smoker (1/2 PPD) Has smoked since age: (Notes: smoking 30 years) High Cholesterol: Y High blood pressure: Y Exercise level: Occasional Alcohol intake: None Marital status: Surgical History Reviewed Surgical History AFRO/PTCA R ILIAC 07/18/15 PTCA/STENT LAD 12/24/14 PTCA/STENT LAD 10/22/16 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 HPI Angina/Chest Pain Reported by patient. Location: not angina. Pain to left breast where LINQ is inserted Notes: has been "irritating" since placement in september 2016. Can't sleep on L side at all. Hurts to touch, red, wants it removed. Link device placed by Dr. Sanford at time of percutaneous coronary intervention The patient was following with neurology due to syncope and near-syncope, the neurologist has left town. She reports the device was not recently monitored. She complains of occasional near-syncope, marginally low blood pressure, and dyspnea.History of pneumonia and weight loss Chest x-ray revealed the reviewed on March 30 no right effusion fourth significant right effusion fifth improved right effusion with no evidence of thoracentesis ROS Additionally reports: as reviewed in the chart Currently on Plavix ROS as noted in the HPI Physical Exam Patient is a 56-year-old female. Constitutional: General Appearance well nourished and developed and healthy-appearing. Level of Distress NAD. Ambulation ambulating normally. Cardiovascular: Apical Impulse not displaced or no thrill. Heart Auscultation normal s1 and s2; no murmurs, rubs, or gallops; and RRR. Arterial Pulses no abdominal aorta bruits, femoral bruits, or popliteal bruit s and 2+ bilateral, carotid 2+ bilateral, femoral 2+ bilateral, popliteal 2+ bilateral, and dorsalis pedis 2+ bilateral. Edema no edema or varicosities. Lungs: Repiratory Effort no dyspnea. Percussion no hyperresonance or dullness or flatness. Auscultatio n no wheezing, rhonchi, or rales / crackles and breathing sounds normal, good air movement, and CTA except as noted. Abdomen: Bowl Sounds normal. Inspection and Palpation no tenderness, guarding, masses, or rebound tenderness and soft and non-distended. L iver non-tender and no hepatomegaly. Spleen non-tender and no splenomegaly. Hernia none palpable. Musculoskeletal System: Gait And Stance normal gait and stance. Digits and Nails normal nails and no cyanosis. Neurologic: Cranial Nerves grossly intact. Reflexes DTRs 2+ bilaterally throughout. HISTORY AND PHYSICAL [id number] SLEEPERMACARENA Sensation grossly intact. Lymph Nodes: Lymph Nodes no cervical LAD, supraclavicular LAD, axillary LAD, or inguinal LAD. Eyes: Lids and Conjunctivae no discharge or pallor and non-injected. Pupils PERRLA. Cornea grossly intact. EOM EOMI. Lens clear. Sclera non-icteric. Neck: Neck no masses, enlarged lymph nodes, or carotid bruits and supple and trachea midline. Thyroid no enlargement or nodules and non-tender. Skin: Inspection and Palpation no rash, lesions, ulcers, jaundice, or abnormal nevi; small 2 x 10 mm device in the medial inferior quadrant of the left breast and subcutaneous tissue appears to be above the breast tissue. Assessment / Plan 1. Near syncope R55: Syncope and collapse LIGHTHEADEDNESS OR FAINTNESS: CARE INSTRUCTIONS Patient Goals the patient wants the link device removed Patient Instructions scheduled for 06/03/2017 Discussion Notes preoperative instructions given TIFFANIE JARAMILLO MD at 0951 CC: [id number] DICTATION DATE: 05/29/17 1000 PRINCIPAL HARDWARE ARCHITECT: DM 05/31/17 1557 [address] [facility] [address] [place] [address]
[2017-06-03 05:56] LABS: HEMATOCRIT 37.9 % (36.0-48.0); HEMOGLOBIN 12.7 g/dL (12-16); MCH 28.8 pg (26.0-34.0); MCHC 33.5 g/dL (31.0-37.0); MCV 85.9 fL (80.0-100.0); MEAN PLATELET VOLUME 10.6 fL (7.4-10.4); RBC 4.41 10x6/uL (4.00-5.40); RDW 18.5 % (11.5-14.5)
[2017-06-03 06:00] VITALS: BP 118/72; BMI 19.1
[2017-06-03 06:02] LABS: ANION GAP 16.2 mmol/L (8-16); CALCIUM 9.2 mg/dL (8.5-10.1); CARBON DIOXIDE 23.9 mmol/L (21.0-32.0); CREATININE - SERUM 1.1 mg/dL (0.6-1.3); INR 1.17 (0.85-1.17); POTASSIUM - SERUM 4.1 mmol/L (3.5-5.1); PROTIME 14.4 SECONDS (11.6-15.0)
[2017-06-03 08:22] VITALS: Ht 180.3 cm; Wt 62.1 kg
== END 2017-06-03 10:25 | disposition home or self-care (01) ==
LOC: D.OPS 05:08
PROVIDERS: Thoracic Surgery (Cardiothoracic Vascular Surgery)
DX: R55 Syncope and collapse (principal); F17.200 Nicotine dependence, unspecified, uncomplicated; I10 Essential (primary) hypertension; I50.9 Heart failure, unspecified; K21.9 Gastro-esophageal reflux disease without esophagitis; J44.9 Chronic obstructive pulmonary disease, unspecified; Z01.812 Encounter for preprocedural laboratory examination

== ENCOUNTER → 2017-07-16 17:01 | Outpatient (CLI) | payer OTHER ==
[2017-06-03 08:22] VITALS: BMI 19.1
== END | disposition home or self-care (01) ==
LOC: D.MAMMO 15:00
DX: Z12.31 Encounter for screening mammogram for malignant neoplasm of breast (principal)

== ENCOUNTER → 2017-07-26 14:42 | Outpatient (CLI) | payer OTHER ==
[2017-06-03 08:22] VITALS: BMI 19.1
== END | disposition home or self-care (01) ==
LOC: D.CT 14:30
DX: R06.02 Shortness of breath (principal)

== ENCOUNTER → 2017-08-09 10:56 | Outpatient (CLI) | payer OTHER ==
[2017-06-03 08:22] VITALS: BMI 19.1
== END | disposition home or self-care (01) ==
LOC: D.MRI 10:56
DX: M54.5 Low back pain (principal)

== ENCOUNTER → 2017-09-27 07:19 | Outpatient (CLI) | payer OTHER ==
[2017-06-03 08:22] VITALS: BMI 19.1
[~2017-09-27 07:19] MED LIST changes: +PROVENTIL/2.5 MG/3 M INH
== END | disposition home or self-care (01) ==
LOC: D.US 09-24 15:00
DX: E04.1 Nontoxic single thyroid nodule (principal)

== ENCOUNTER → 2017-10-09 07:55 | Outpatient (CLI) | payer OTHER ==
[2017-06-03 08:22] VITALS: BMI 19.1
[2017-10-10 09:18] LABS: IMMUNOGLOBULIN A 190 mg/dL (87-352); IMMUNOGLOBULIN G 1253 mg/dL (700-1600)
[2017-10-12 05:19] LABS: IMMUNOGLOBULIN E 35 IU/mL (0-100)
== END | disposition home or self-care (01) ==
LOC: D.RT 07:55
PROVIDERS: Family Medicine
DX: J44.9 Chronic obstructive pulmonary disease, unspecified (principal); Z87.01 Personal history of pneumonia (recurrent); J45.909 Unspecified asthma, uncomplicated; F17.210 Nicotine dependence, cigarettes, uncomplicated

== ENCOUNTER 2017-10-14 07:54 | Outpatient (CLI) | payer OTHER ==
[~2017-10-14] VITALS: Ht 180.3 cm; Wt 64.5 kg
--- NOTE | ~2017-10-14 | OP ---
PATIENT NAME: MACARENA JOSEPH MEDICAL RECORD: [id number] :58 LOCATION:D.CAT ADMISSION DATE: SURGEON: RACHEL GALICIA MD DATE OF OPERATION: 10/14/2017 PROCEDURES: 1. ENVIRONMENTAL SCIENCE PROGRAM DIRECTOR iliac right. 2. Aortofemoral runoff. 3. Abdominal aortography. INDICATION: Claudication, peripheral vascular disease. PROCEDURE IN DETAIL: After informed consent was obtained and after a detailed description of risks, benefits as well as alternative therapies, the patient elected to proceed with angiogram and aortofemoral runoff. The right femoral area was prepped and draped in normal sterile fashion. Right femoral artery was cannulated via modified Seldinger technique with placement of 6-Amharic sheath. All catheters exchanged through this sheath. FINDINGS: The abdominal aortography was performed. The catheter was pulled down for aortofemoral runoff. Abdominal aortography reveals no significant abdominal aortic disease, no dissection or aneurysm formation. LEFT LEG: A. Iliac: The common internal and external iliacs have mild irregularities, but no flow-limiting stenosis. B. Femoral system: The common, superficial, and deep femoral have moderate irregularities, but no flow-limiting stenosis. C. Popliteal and infrapopliteal vessels are widely patent with good 3-vessel runoff to the foot. RIGHT LEG: A. Iliac: The common iliac is devoid of disease. The external iliac has previously placed stent with greater than 80% in-stent restenosis. B. Femoral system: The common, superficial, and deep femoral have moderate irregularities, but no flow-limiting stenosis. C. Popliteal and infrapopliteal vessels are widely patent with good 3-vessel runoff to the foot. ENVIRONMENTAL SCIENCE PROGRAM DIRECTOR OF THE IN-STENT RESTENOSIS OF THE RIGHT EXTERNAL ILIAC: We used a 7-0 balloon followed by a drug-eluting balloon that was a Stellarex. Result was 0% residual stenosis. OVERALL IMPRESSION: Successful ENVIRONMENTAL SCIENCE PROGRAM DIRECTOR with drug-eluting balloon for 80% in-stent restenosis to 0% residual stenosis of the right iliac. 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
--- NOTE | ~2017-10-14 | HEMODYNAMI ---
PATIENT:MACARENA JOSEPH MEDICAL RECORD: [id number] : 58 LOCATION:D.[facility] ADMISSION DATE: 10/14/17 Generatedon:10/14/201711:35 Patient name: MACARENA JOSEPH Patient #: [id number] SSN: : 1960 Date of study: 10/14/2017 Page: Of Hemodynamic Procedure Report Patient Data Patient Demographics Procedure consent was obtained First Name: MACARENA Gender: Female Last Name: JAKE : 1960 [facility] Initial: R Age: 57 year(s) Patient #: [id number] Race: Additional ID: [id number] Contact details Address: [address] [place] [address] [employer] State: [place] City: [place] Zip code: [address] Past Medical History History of disease Date Diagnosis Comments Peripheral vascular disease Chronic lung disease->COPD CAD Allergies Allergen Reaction Date Comments Reported Other allergy 12/24/2014 sulfa Sulfa drugs 10/19/2016 Sulfa drugs 10/14/2017 Admission Admission Data Admission Date: 10/14/2017 Admission Time: 7:54 Height (in.): 5.11 BSA: 0.28 (m2) Height (cm.): 12.98 BMI: 3984.91 (kg/m2) Weight (lbs.): 148 Weight (kg.): 67.13 Lab Results Lab Result Date: 10/14/2017 Lab Result Time: 0:00 Biochemistry Name Units Result Min Max BUN mg/dl 13 --(--*-)-- 7 18 Creatinine mg/dl 1 --(--*-)-- 0.6 1.3 CBC Name Units Result Min Max Hemoglobin g/dl 13.3 -*(----)-- 13.5 17.5 Procedure Procedure Types Cath Procedure Peripheral Cath Diagnostic Procedure Cath Peripheral Wsjmi-Qaxqwoq-Gts-Off Peripheral vascular Intervention Angioplasty Angioplasty Iliac Initial Procedure Description Procedure Date Procedure Date: 10/14/2017 Procedure Start Time: 11:09 Procedure End Time: 11:34 Procedure Staff Name Function Delio Sanford MD Performing Physician Doug Cali RT Monitor Mariam Tracey RT Scrub Giovanni Hensley RN Nurse Procedure Data Cath Procedure Fluoroscopy Diagnostic fluoroscopy Total fluoroscopy Time: 2 time: 2 min min Diagnostic fluoroscopy Total fluoroscopy dose: 85 dose: 85 mGy mGy Contrast Material Contrast Material Type Amount (ml) Isovue 300 55 Entry Location Entry Primary Successful Side Size Upsize 1 Upsize Entry Closure Coffman ccessful Closure Location (Fr) (Fr) 2 (Fr) Remarks Device Remarks Femoral Left 5 Fr Exoseal artery Femoral Right 6 Fr 6 Fr 6 Fr Exoseal artery Short Mid-Length Short Diagnostic catheters Device Type Used For End Catheter Placement DIAGNOSTIC UF 5Fr Abdominal catheter ([id number]) aortogram with runoff Procedure Complications No complications Procedure Medications Medication Administration Route Dosage 0.9% NaCl I.V. 100 ml/hr Oxygen etCO2 Nasal cannula 2 l/min Heparin Flush Bag added to field 2 bags (1000units/500ml NS) Lidocaine 2% added to field 20 Versed I.V. 2 mg Fentanyl I.V. 100 mcg Versed I.V. 2 mg Fentanyl I.V. 100 mcg Versed I.V. 2 mg Heparin Bolus I.V. 4000 units Versed I.V. 2 mg Plavix P.O. 75 mg Hemodynamics Rest BSA: 0.28 (m2) HGB: 13.3 (g/dl) O2 Consumption: Estimated: 26.44 (ml/min) O2 Con sumption indexed: Estimated:94.43 (ml/min/m) Heart Rate: 67 (bpm) Snapshots Pre Cath Intra NCS Post Cath Vital Signs Time Heart Resp SPO2 etCO2 NIBP (mmHg) Rhythm Pain Sedation Rate (ipm) (%) (mmHg) Status Level (bpm) 10:53:18 65 18 100 28.4 116/84(104) NSR 0 (11) 10(A) , No pain 10:57:50 67 19 100 29.1 119/89(103) NSR 0 (11) 10(A) , No pain 11:02:23 64 13 100 14.9 114/85(102) NSR 0 (11) 10(A) , No pain 11:06:57 60 20 99 32.9 107/70(82) NSR 0 (11) 10(A) , No pain 11:11:30 61 15 92 29.1 94/55(72) NSR 0 (11) 10(A) , No pain 11:16:00 67 12 94 12.7 98/69(87) NSR 0 (11) 9(A) , No pain 11:20:30 71 15 92 28.4 108/72(99) NSR 0 (11) 9(A) , No pain 11:25:07 69 14 99 31.4 94/62(72) NSR 0 (11) 9(A) , No pain 11:30:18 68 13 100 22.4 139/84(128) NSR 0 (11) 9(A) , No pain 11:34:59 0 No Cuff NSR 0 (11) 9(A) , No pain Medications Time Medication Route Dose Verified Delivered Reason Notes E ffectiveness by by 10:49:15 0.9% NaCl I.V. 100 Giovanni Giovanni Per ml/hr Shellie Hensley physician RN RN 10:49:31 Oxygen etCO2 2 Giovanni Giovanni Per Nasal l/min Shellie Hensley physician cannula RN RN 10:49:55 Heparin Flush added 2 Giovanni Giovanni used for Bag to bags Shellie Hensley procedure (1000units/500ml RN RN NS) 10:50:06 Lidocaine 2% added 20ml Giovanni Giovanni for local to vial Shellie Hensley anesthetic RN RN 11:01:25 Versed I.V. 2 mg Giovanni Giovanni for sedation Shellie Hensley RN RN 11:01:35 Fentanyl I.V. 100 Giovanni Giovanni for sedation mcg Shellie Hensley RN RN 11:06:11 Versed I.V. 2 mg Giovanni Giovanni for sedation Shellie Hensley RN RN 11:06:16 Fentanyl I.V. 100 Giovanni Giovanni for sedation mcg Shellie Hensley RN RN 11:12:56 Versed I.V. 2 mg Giovanni Giovanni for sedation Shellie Hensley RN RN 11:13:12 Heparin Bolus I.V. 4000 Giovanni Giovanni for sedation units Shellie Hensley RN RN 11:15:15 Versed I.V. 2 mg Giovanni Giovanni for sedation Shellie Hensley RN RN 11:24:22 Plavix P.O. 75 mg Giovanni Giovanni for Shellie Hensley antiplatelet RN RN therapy Procedure Log Time Note 10::55 Signed procedure consent form obtained from patient. 10:30:56 Time tracking: Regular hours (M-F 7:00 - 5:00) 10:31:01 Plan of Care:Hemodynamics will remain stable., Cardiac rhythm will remain stable., Comfort level will be maintained., Respiratory function will remain adequate., Patient/ family verbilizes understanding of procedure., Procedure tolerated without complication., Recovers from procedure without complications.. 10:32:15 Patient allergic to Sulfa drugs 10:32:24 Patient Height : 5.11 inches 10:32:28 Patient Weight : 148 lbs 10:33:42 Lab Result : BUN 13 mg/dl 10:33:42 Lab Result : Hemoglobin 13.3 g/dl 10:33:42 Lab Result : Creatinine 1 mg/dl 10:34:26 Doug Cali RT(R) sent for patient. Start room use. 10:37:59 Patient received from Pre/Post Procedure Room to CCL 1 Alert and oriented. Tansferred to table in Supine position. 10:38:00 Warm blankets applied, and shadia hugger turned on for patient comfort. 10:38:01 Correct patient and procedure confirmed by team. 10:38:01 ECG and BP/O2 sat monitors applied to patient. 10:49:02 Vital chart was started 10:49:04 Baseline sample Acquired. 10:49:13 Rhythm: sinus rhythm 10:49:15 0.9% NaCl 100 ml/hr I.V. was administered by Giovanni Hensley RN; Per physician; 10:49:15 Full Disclosure recording started 10:49:31 Oxygen 2 l/min etCO2 Nasal cannula was administered by Giovanni Hensley RN; Per physician; 10:49:55 Heparin Flush Bag (1000units/500ml NS) 2 bags added to field was administered by Giovanni Hensley RN; used for procedure; 10:50:06 Lidocaine 2% 20ml vial added to field was administered by Giovanni Hensley RN; for local anesthetic; 10:50:31 H&P Date Dictated: 10/09/2017 Within 30 days and on chart.. 10:50:33 Pre-procedure instructions explained to patient. 10:50:34 Pre-op teaching completed and patient verbalized understanding. 10:50:36 Family in waiting room. 10:50:39 Patient NPO since Midnight. 10:52:19 Is the patient allergic to Iodine/contrast media? No. 10:52:24 Is patient on blood thinner?Yes 10:52:37 plavix 2days ago 10:52:40 Patient diabetic? No. 10:52:41 ----Pre-sedation anethsthesia assessment.---- 10:52:44 Previous problem with sedation/anesthesia? No ? 10:52:46 Snore? Yes 10:52:47 Sleep apnea? No 10:52:49 Deviated septum? No 10:52:50 Opens mouth fully? Yes 10:52:52 Sticks out tongue? Yes 10:52:58 Airway obstruction? Yes copd 10:53:03 Dentures? Yes in tight 10:53:20 Pre procedure: right dorsailis pedis pulse Doppler 10:53:23 Pre procedure: left dorsailis pedis pulse Doppler 10:53:28 Patient pain scale 0/10 ?. 10:53:38 IV patent on arrival in left forearm with 0.9% NaCl at 10ml/hr. 10:53:43 Lab results completed and on chart. 10:53:49 Bilateral groins area was prepped with chlora-prep and draped in sterile fashion 10:53:50 Alarms reviewed by R. N. 10:53:50 Sharps counted by scrub and verified by R.N. 10:53:54 Physician arrived 10:58:19 --------ALL STOP TIME OUT------ 10:58:20 Final Timeout: patient, procedure, and site verified with staff and physician. All members of the team are in agreement. 10:58:22 Bilateral groins site verified by team. 10:58:25 Physical assessment completed. ASA score P 2 - A patient with mild systemic disease as per Delio Sanford MD. 10:58:30 Sedation plan: IV Moderate Sedation Medication:Versed, Fentanyl 11:01:25 Versed 2 mg I.V. was administered by Giovanni Hensley RN; for sedation; 11:01:35 Fentanyl 100 mcg I.V. was administered by Giovanni Hensley RN; for sedation; 11:04:06 Use device set Femoral Dx 11:04:07 ACIST Syringe (11841) opened to sterile field. 11:04:07 Bag Decanter () opened to sterile field. 11:04:08 Medline Cath Pack ([id number]) opened to sterile field. 11:04:08 DIAGNOSTIC WIRE .035 260cm J wire (797921) opened to sterile field. 11:04:10 ACIST Hand Control (82581) opened to sterile field. 11:04:11 ACIST Manifold (03668) opened to sterile field. 11:04:12 DIAGNOSTIC Multipack 5Fr catheter set (CD4764) opened to sterile field. 11:04:13 Tegaderm 4 x 4 (1626W) opened to sterile field. 11:04:14 PERCUTANEOUS ENTRY 19GA needle opened to sterile field. 11:04:17 SHEATH Prelude 5Fr 0.035 (GUF-2I-69-035) opened to sterile field. 11:04:29 Procedure started. 11:04:52 Local anesthetic to left femerol artery with Lidocaine 2% by Delio Sanford MD.INITIAL ACCESS ONLY 11:05:10 A 5 Fr sheath was inserted into the Left Femoral artery 11:05:39 Zero performed for pressure channel P1 11:06:11 Versed 2 mg I.V. was administered by Giovanni Hensley RN; for sedation; 11:06:16 Fentanyl 100 mcg I.V. was administered by Giovanni Hensley RN; for sedation; 11:06:31 A DIAGNOSTIC UF 5Fr catheter ([id number]) was advanced over the wire and used for Abdominal aortogram with runoff. 11:06:53 Abdominal angiogram w/ runoff was performed. 11:07:54 Left leg runoff performed. 11:07:55 Right leg runoff performed. 11:08:40 INFLATOR Merit BasixCompak (TI5052) opened to sterile field. 11:08:49 SHEATH 6Fr Prelude ([id number]) opened to sterile field. 11:09:26 Local anesthetic to right femoral artery with Lidocaine 2% by Delio Sanford MD.INITIAL ACCESS ONLY 11:09:41 A 6 Fr Short sheath was inserted into the Right Femoral artery 11:10:05 Sheath upsized to a 6 Fr Mid-Length. 11:11:21 Procedure type changed to Cath procedure, Peripheral Cath Diagnostic Procedure, Cath Peripheral, Befyt-Mkbnhhc-Peo-Off, Peripheral vascular Intervention, Angioplasty, Angioplasty Iliac Initial 11:12:56 Versed 2 mg I.V. was administered by Giovanni Hensley RN; for sedation; 11:13:12 Heparin Bolus 4000 units I.V. was administered by Giovanni Hensley RN; for sedation; 11:13:59 Inflate balloon Inflation number: 1 A POWERFLEX PRO 7.0 x 20 x 135 cm balloon ([id number]) was prepped and advanced across the Mid Common Iliac, Right, then inflated to 9 KEREN for 0:12 (min:sec). 11:14:02 Balloon removed over the wire. 11:15:15 Versed 2 mg I.V. was administered by Giovanni Hensley RN; for sedation; 11:16:38 SHEATH 6FR Brite Tip 35cm ([id number]) opened to sterile field. 11:18:31 Inflate balloon Inflation number: 2 A STELLAREX 6 x 40 DE balloon ([id number]) was prepped and advanced across the Mid Common Iliac, Right, then inflated to 11 KEREN for 3:13 (min:sec). 11:21:01 Balloon removed over the wire. 11:21:09 Sheath upsized to a 6 Fr Short. 11:21:28 Sheath removed intact; hemostasis achieved with Exoseal to the Right Femoral artery. 11:21:34 Sheath removed intact; hemostasis achieved with Exoseal to the Left Femoral artery. 11:21:58 Procedure ended.(Physican Out) 11:22:09 EXOSEAL 6Fr (EX600) opened to sterile field. 11:22:17 Contrast amount:Isovue 300 55ml. 11:24:22 Plavix 75 mg P.O. was administered by Giovanni Hensley RN; for antiplatelet therapy; :30:24 Fluoroscopy time 02.00 minutes. 11:30:36 Fluoroscopy dose: 85 mGy 11:30:36 Flurop Dose total: 85 11:30:38 Sharps counted by scrub and verified by R.N. 11:30:39 Insertion/operative site no bleeding no hematoma. 11:30:42 Post-op/insertion site Right Femoral artery dressed using a 4 x 4 and Tegaderm. 11:30:45 Post-op/insertion site Left Femoral artery dressed using a 4 x 4 and Tegaderm. 11:30:50 Post right femoral artery:stable 11:30:54 Post left femerol artery:stable 11:30:56 Post Procedure Pulses reassessed and unchanged 11:31:01 Post procedure: right dorsailis pedis pulse 1+ Palpable, but thready & weak; easily obliterated. 11:31:04 Post procedure: left dorsailis pedis pulse 1+ Palpable, but thready & weak; easily obliterated. 11:31:08 Post procedure rhythm: sinus rhythm 11:31:08 Post procedure instruction explained to patient.Patient verbalizes understanding. 11:31:57 EXOSEAL 5Fr (EX500) opened to sterile field. 11:34:21 Procedure and supply charges have been captured, reviewed, submitted and are correct. 11:34:26 Procedure Complication : No complications 11:34:29 Vital chart was stopped 11:34:30 See physician's report for complete and final results. 11:34:32 Report given to Pre/Post Procedure Room. 11:34:35 Patient transfered to Pre/Post Procedure Room with Stretcher. 11:34:37 Procedure ended. 11:34:37 Full Disclosure recording stopped 11:34:44 End room use (Document Last) Intervention Summary Intervention Notes Time ActionType Lesion and Equipment Used Action# Pressure Duration Attributes 11:13:59 Inflate Mid Common POWERFLEX PRO 7.0 1 9 00:12 balloon Iliac, x 20 x 135 cm Right balloon ([id number]) 11:18:31 Inflate Mid Common STELLAREX 6 x 40 2 11 03:14 balloon Iliac, DE balloon Right ([id number]) Device Usage Item Name Manufacture Quantity Catalog Number [facility] Minimal Lot# / Charge Number Stock Stock Serial# Code ACIST Syringe Acist 1 90481 [id number] 688371 50122 9 20 (21482) [employer] Bag Decanter Microtek 1 624443 42518 65637 0 5 () Medical Inc. Medline Cath Pack Cardinal 1 [id number] 510778 45223 17168 1 5 ([id number]) Health DIAGNOSTIC WIRE St Shakeel 1 220141 325644 148629 03718 0 30 .035 260cm J wire (511486) ACIST Hand Acist 1 49491 340920 068569 30807 2 5 Control (76398) [employer] Inc ACIST Manifold Acist 1 16183 329898 565659 90809 0 5 (62808) [employer] Inc DIAGNOSTIC Cardinal 1 [id number] 253205 70304 98017 9 30 Multipack 5Fr Health catheter set ([id number]) Tegaderm 4 x 4 3M 1 1626W 353822 476987 52563 8 5 (1626W) PERCUTANEOUS Cook Medical 1 D00256 396297 44430 2 5 ENTRY 19GA needle SHEATH Prelude Merit 1 [id number] 313913 593263 85493 1 5 5Fr 0.035 Medical ([id number]-7F-00-035) DIAGNOSTIC UF 5Fr Cardinal 1 [id number] 716603 032264 68521 6 10 catheter Health ([id number]) INFLATOR Merit Merit 1 KY1515 855746 866487 09559 5 15 BasixCompak Medical (LX4866) SHEATH 6Fr Merit 1 [id number] 102797 631311 82939 5 5 Prelude Medical ([id number]) POWERFLEX PRO 7.0 Cardinal 1 [id number] 241022 266263 17665 7 5 x 20 x 135 cm Health balloon ([id number]) SHEATH 6FR Brite Cardinal 1 [id number] 818368 619460 88053 6 1 Tip 35cm Health (503326P) STELLAREX 6 x 40 Ayde 1 [id number] 636886 994525 64368 6 5 [id number] DE balloon Healthcare ([id number]) (603899) EXOSEAL 6Fr Cardinal 1 EX600 340036 235256 10102 0 10 (EX600) Health EXOSEAL 5Fr Cardinal 1 EX500 526796 634926 85484 6 10 (EX500) Health Signature Audit [place] Stage Time Signature Unsigned Intra-Procedure 10/14/2017 Doug Cali RT(R) 11:35:20 AM Signatures Monitor : Doug Cali RT Signature : Date : Time : [facility] [address] [place] [address]
[~2017-10-14 07:54] MED LIST changes: -PROVENTIL/2.5 MG/3 M INH
[2017-10-14] MEDS ORDERED: BAYER CHEWABLE81 MG PO (08:12)
[2017-10-14] MEDS ORDERED: PROVENTIL/2.5 MG/3 M INH (08:15)
[2017-10-14 08:20] VITALS: BP 111/80; Ht 180.3 cm; Wt 64.5 kg
[2017-10-14 08:28] LABS: BASOPHILS 0.2 % (0-2); EOSINOPHILS 1.1 % (0-7); HEMATOCRIT 38.5 % (36.0-48.0); HEMOGLOBIN 13.3 g/dL (12-16); IMMATURE GRANULOCYTES 0.1 % (0-5); LYMPHOCYTES 31.3 % (15-50); MCH 31.1 pg (26.0-34.0); MCHC 34.5 g/dL (31.0-37.0); MCV 90.2 fL (80.0-100.0); MEAN PLATELET VOLUME 10.2 fL (7.4-10.4); MONOCYTES 6.4 % (2-11); NEUTROPHILS 60.9 % (40-80); PLATELET COUNT 219 10x3/uL (130-400); RBC 4.27 10x6/uL (4.00-5.40); WBC 8.5 10x3/uL (4.8-10.8)
[2017-10-14 08:38] LABS: ANION GAP 13.1 mmol/L (8-16); CALCIUM 9.4 mg/dL (8.5-10.1); CARBON DIOXIDE 25.3 mmol/L (21.0-32.0); POTASSIUM - SERUM 4.4 mmol/L (3.5-5.1)
== END 2017-10-14 15:30 ==
LOC: D.CATH 07:54
PROVIDERS: Internal Medicine Interventional Cardiology
DX: I70.213 Atherosclerosis of native arteries of extremities with intermittent claudication, bilateral legs (principal)

== ENCOUNTER 2017-12-16 06:24 | Day surgery (SDC) | payer OTHER ==
[~2017-12-16] VITALS: Ht 180.3 cm; Wt 65.9 kg
--- NOTE | ~2017-12-16 | OP ---
PATIENT NAME: MACARENA JOSEPH MEDICAL RECORD: [id number] :58 LOCATION:D.[facility] ADMISSION DATE: SURGEON: MINERVA MARLEY DO DATE OF OPERATION: 12/16/2017 PROCEDURE: EGD with balloon dilation and random biopsies. INDICATIONS FOR PROCEDURE: Dysphagia, heartburn, abnormal weight loss, nausea. SCOPE: Olympus video gastroscope. MEDICATIONS: Propofol 250 mg IV per anesthesia. ESTIMATED BLOOD LOSS: Minimal. COMPLICATIONS: None. FINDINGS: Informed consent was given. The patient was made comfortable with the above medication. After reaching an adequate level of sedation by slow IV push, the patient was placed on her left side. The endoscope was advanced under direct visualization through the mouth to the second portion of the duodenum. The upper, middle, and lower thirds of the esophagus appeared normal. At the GE junction, there was some slight stenosis noted. There was also some LA class A reflux induced esophagitis at the GE junction. The endoscope was advanced beyond the GE junction into the stomach and retroflexed to view the cardia, where a very small sliding hiatal hernia was present. The mucosa within the stomach appeared normal in its entirety. Random biopsies were taken to submit for histology and to rule out the presence of H. pylori. The endoscope was advanced beyond the pylorus into the duodenum. The entire examined duodenum appeared normal. The endoscope was then withdrawn back into the stomach and an 18-20 mm dilating CRE balloon was placed through the working channel of the endoscope. The endoscope was brought back up into the esophagus and the stenosis at the GE junction was dilated to 20 mm maximum diameter successfully. The endoscope was then withdrawn from the patient. The patient tolerated the procedure well and there were no complications. IMPRESSION: 1. LA class A reflux-induced esophagitis. 2. Mild esophageal stenosis status post dilation with a CRE balloon to 20 mm. 3. Small sliding hiatal hernia. PLAN AND RECOMMENDATIONS: 1. Discharge home when recovery parameters are met. 2. Follow up biopsy specimen results. 3. GERD diet and reflux precautions. 4. Continue current medications. 5. Notify the GI clinic if symptoms worsen or fail to improve. TRANSINT:[id number] Voice Confirmation ID: [id number] DOCUMENT ID: [id number] OPERATIVE REPORT [id number] MACARENA JOSEPH MINERVA MARLEY DO at 1600 CC: [id number] DICTATION DATE: 12/16/17 0814 CONSTRUCTION CARPENTER: 12/16/[address] [facility] 12/16/17 [place] [place] [address]
[~2017-12-16 06:24] MED LIST changes: +PROVENTIL/2.5 MG/3 M INH
[2017-12-16 06:39] LABS: HEMATOCRIT 42.8 % (36.0-48.0); HEMOGLOBIN 14.8 g/dL (12-16); MCH 32.5 pg (26.0-34.0); MCHC 34.6 g/dL (31.0-37.0); MCV 93.9 fL (80.0-100.0); MEAN PLATELET VOLUME 10.2 fL (7.4-10.4); RBC 4.56 10x6/uL (4.00-5.40); RDW 15.5 % (11.5-14.5); WBC 10.1 10x3/uL (4.8-10.8)
[2017-12-16 06:49] LABS: ANION GAP 11.5 mmol/L (8-16); CALCIUM 9.7 mg/dL (8.5-10.1); CARBON DIOXIDE 30.5 mmol/L (21.0-32.0); CREATININE - SERUM 0.9 mg/dL (0.6-1.3)
[2017-12-16 06:51] LABS: APTT 34.1 SECONDS (22.8-39.4); PROTIME 12.8 SECONDS (11.6-15.0)
[2017-12-16 07:29] VITALS: BP 108/70; Ht 180.3 cm; Wt 65.9 kg
== END 2017-12-16 10:00 | disposition home or self-care (01) ==
LOC: D.OPS 06:24
PROVIDERS: Anesthesiology
DX: K21.0 Gastro-esophageal reflux disease with esophagitis (principal); K44.9 Diaphragmatic hernia without obstruction or gangrene; K22.2 Esophageal obstruction; Z01.812 Encounter for preprocedural laboratory examination

== ENCOUNTER → 2018-04-08 09:04 | Outpatient (CLI) | payer OTHER ==
[2017-12-16 07:29] VITALS: BMI 20.2
== END | disposition home or self-care (01) ==
LOC: D.OPS 09:04
DX: K21.9 Gastro-esophageal reflux disease without esophagitis (principal); Z01.812 Encounter for preprocedural laboratory examination

== ENCOUNTER → 2018-04-18 07:16 | Outpatient (CLI) | payer OTHER ==
[2017-12-16 07:29] VITALS: BMI 20.2
[2018-04-19 08:16] LABS: IMMUNOGLOBULIN A 203 mg/dL (87-352)
[2018-04-22 05:15] LABS: IMMUNOGLOBULIN E 18 IU/mL (0-100)
[2018-04-25 06:16] LABS: IGG SUBCLASS 1 813 mg/dL (248-810); IGG SUBCLASS 2 195 mg/dL (130-555); IGG SUBCLASS 3 52 mg/dL (15-102); IGG SUBCLASS 4 11 mg/dL (2-96)
== END | disposition home or self-care (01) ==
LOC: D.RT 07:16
PROVIDERS: Internal Medicine Pulmonary Disease
DX: R91.1 Solitary pulmonary nodule (principal); Z87.01 Personal history of pneumonia (recurrent); J45.909 Unspecified asthma, uncomplicated; J44.9 Chronic obstructive pulmonary disease, unspecified

== ENCOUNTER 2018-05-20 08:00 | Outpatient (CLI) | payer OTHER ==
[2017-12-16 07:29] VITALS: BMI 20.2
[2018-05-20] MEDS ORDERED: CARAFATE1 G PO (08:55)
[2018-05-20 09:46] LABS: BASOPHILS 0.2 % (0-2); EOSINOPHILS 1.7 % (0-7); HEMATOCRIT 44.8 % (36.0-48.0); HEMOGLOBIN 15.1 g/dL (12-16); IMMATURE GRANULOCYTES 0.3 % (0-5); LYMPHOCYTES 35.2 % (15-50); MCH 31.5 pg (26.0-34.0); MCHC 33.7 g/dL (31.0-37.0); MCV 93.5 fL (80.0-100.0); MEAN PLATELET VOLUME 9.8 fL (7.4-10.4); MONOCYTES 6.8 % (2-11); NEUTROPHILS 55.8 % (40-80); RBC 4.79 10x6/uL (4.00-5.40); RDW 16.1 % (11.5-14.5); WBC 9.4 10x3/uL (4.8-10.8)
[2018-05-20 10:07] LABS: PLATELET COUNT 311 10x3/uL (130-400)
[2018-05-20 10:21] LABS: APTT 32.1 SECONDS (22.8-39.4); INR 0.98 (0.85-1.17); PROTIME 12.5 SECONDS (11.6-15.0)
== END 2018-05-20 08:01 | disposition home or self-care (01) ==
LOC: D.OPS 08:00 → D.PAN 05-21 08:00 → D.OPS 05-21 08:00 → EDSTATUS 05-21 08:15 → D.PAN 05-21 08:15 → D.OPS 05-21 11:15
PROVIDERS: Anesthesiology; ATTEND Surgery
DX: K21.9 Gastro-esophageal reflux disease without esophagitis (principal)

== ENCOUNTER → 2018-05-27 12:32 | Outpatient (CLI) | payer OTHER ==
[2017-12-16 07:29] VITALS: BMI 20.2
--- NOTE | ~2018-05-27 | EC ---
PATIENT:MACARENA JOSEPH DATE OF SERVICE: 05/27/18 SEX: F MEDICAL RECORD: [id number] DATE OF : 58 LOCATION:D.[facility] AGE OF PATIENT: 57 ADMISSION DATE: 05/27/18 REFERRING PHYSICIAN: INTERPRETING PHYSICIAN: RACHEL SANFORD MD ECHOCARDIOGRAM REPORT ECHO CHARGES 4 ECHO COMPLETE Date: 05/27/18 CLINICAL DIAGNOSIS: MITRAL /TRICUSPID REGURG ECHOCARDIOGRAPHIC MEASUREMENTS (adult normal given) AC root (d.<3.7cm) 2.4 cm LV Septum d (<1.2 cm> 0.9 cm Valve Excursion 1.2 cm LV Septum (systole) 1.0 cm Left Atria (s.<4.0cm> 3.8 cm LVPW d(<1.2cm) 1.1 cm RV (d.<2.3cm) 3.7 cm LVPW (sytole) 1.2 cm LV diastole(<5.6CM) 6.1 cm MV E-F(>70mm/sec) cm LV systole 4.7 cm LVOT Diameter 1.5 cm MV exc.(>10mm) 1.7 cm Est.ejection fraction (50-75%) % DOPPLER: LVIT cm/sec A 46.0 cm/sec E 99.0 cm/sec LA cm/sec RVSP 38 mmHg LVOT 105 cm/sec AOP1/2T m/s Asc. Ao 112 cm/sec RVOT 58 cm/sec RA cm/sec PA 69 cm/sec AV Gradient Peak 5.06 mmHg AV Mean 2.52 mmHg AV Area 1.7 cm MV Gradient Peak 7.70 mmHg MV Mean 2.23 mmHg MV Area cm COMMENTS: Garment Parts Cutter Hand: Neela JARRELL Rehab Office Coordinator: 1 Dr. Sanford TAPE# PACS Pericardial Effusion N DATE OF SERVICE: 05/27/2018 ECHOCARDIOGRAM DATE OF SERVICE: 05/27/2018 FINDINGS: 1. Left ventricular chamber size is mildly dilated. Left ventricular systolic function is lower limits of normal to mildly depressed at 45% to 50%. 2. Left atrium is within normal limits at 3.8 cm. Right atrium and right ECHOCARDIOGRAM REPORT [id number] MACARENA JOSEPH ventricular chamber sizes are mildly dilated. 3. Valvular structures have normal structure and motion. 4. Doppler interrogation reveals moderate mitral regurgitation, mild tricuspid regurgitation, no other valvular insufficiency or stenosis. Pulmonary systolic pressure is estimated at 38 mmHg. 5. No evidence of pericardial effusion or left ventricular thrombus. TRANSINT:[id number] Voice Confirmation ID: [id number] DOCUMENT ID: [id number] RACHEL SANFORD MD CC: [id number] DICTATION DATE: 05/28/18 0843 DRYWALL CONTRACTOR: 05/28/18 1001 DEP CLI 05/27/18 [facility] [address] [place] [address]
[~2018-05-27 12:32] MED LIST changes: +CARAFATE1 G PO
== END | disposition home or self-care (01) ==
LOC: D.HCCARDIO 12:32
PROVIDERS: ATTEND Internal Medicine Interventional Cardiology
DX: I05.9 Rheumatic mitral valve disease, unspecified (principal)

== ENCOUNTER 2018-06-18 06:49 | Inpatient (IN) | payer OTHER ==
[2018-06-17 14:46] LABS: HEMATOCRIT 41.3 % (36.0-48.0); HEMOGLOBIN 14.3 g/dL (12-16); MCH 32.2 pg (26.0-34.0); MCHC 34.6 g/dL (31.0-37.0); MEAN PLATELET VOLUME 10.5 fL (7.4-10.4); RBC 4.44 10x6/uL (4.00-5.40); RDW 15.7 % (11.5-14.5); WBC 10.5 10x3/uL (4.8-10.8)
[~2018-06-18] VITALS: Ht 180.3 cm; Wt 63.5 kg
[2018-06-18] MEDS ORDERED: SINGULAIR10 MG PO (07:42)
[2018-06-18 07:44] VITALS: BP 111/73; Ht 180.3 cm; Wt 63.5 kg
[2018-06-18 12:30] VITALS: BP 98/62
[2018-06-18 15:13] VITALS: BP 85/59
--- NOTE | 2018-06-18 18:56 | NUR ---
PT LYING IN BED WITH SPOUSE AT BEDSIDE, PT HAS SPOT ON MIDDLE BACK THAT SHE AND SPOUSE WERE WORRIED ABOUT, SEEING A DEMRATOLOGIST WHEN DC, APPLIED LOTION TO SPOT TO EASE ITCH AND PLACED BANDAID ON TO PREVENT FROM ACCIDENTALLY SCRATCHING SPOT WHICH WAS PT CONCERN, LAP SITES ARE CLEAN AND DRY, INTACT, STATES SHE IS SORE AND THE MORPHINE IS HELPING, ENCOURAGED PT TO AMBULATE THIS EVENING WELL, STATES SHE HAS A FRIEND WHO IS A SUPERINTENDENT TRANSPORTATION THAT IS COMING TO ASSIST, NO OTHER NEEDS VOICED WILL CONTINUE WITH PLAN OF CARE
--- NOTE | 2018-06-18 19:11 | NUR ---
I have reviewed this patient and I concur with the Shift Assessment completed by the Licensed Practical Nurse today this shift.
--- NOTE | 2018-06-18 19:30 | NUR ---
REC'D IN BED AWAKE AND ALERT. RESP EVEN AND UNLABORED WITH NO DISTRESS NOTED. CAN EXPRESS NEEDS AND WANTS. ASSESSMENT COMPLETED. C/L IN REACH AT BEDSIDE.
[2018-06-18 22:53] VITALS: BP 95/61
--- NOTE | 2018-06-19 03:17 | NUR ---
I have reviewed this patient and I concur with the Shift Assessment completed by the Licensed Practical Nurse today this shift.
[2018-06-19 05:24] VITALS: BP 107/61
[2018-06-19 06:47] LABS: BASOPHILS 0 % (0-2); EOSINOPHILS 0 % (0-7); HEMOGLOBIN 11.7 g/dL (12-16); IMMATURE GRANULOCYTES 0.2 % (0-5); LYMPHOCYTES 13.4 % (15-50); MCHC 33.4 g/dL (31.0-37.0); MCV 92.8 fL (80.0-100.0); MEAN PLATELET VOLUME 10.8 fL (7.4-10.4); MONOCYTES 6.1 % (2-11); NEUTROPHILS 80.3 % (40-80); PLATELET COUNT 184 10x3/uL (130-400); RBC 3.77 10x6/uL (4.00-5.40); WBC 11.9 10x3/uL (4.8-10.8)
[2018-06-19 07:08] LABS: ALBUMIN 2.9 g/dL (3.4-5.0); ANION GAP 12.2 mmol/L (8-16); BILIRUBIN - TOTAL 0.53 mg/dL (0.2-1.3); CALCIUM 9.3 mg/dL (8.5-10.1); CARBON DIOXIDE 27.2 mmol/L (21.0-32.0); POTASSIUM - SERUM 4.4 mmol/L (3.5-5.1); PROTEIN - SERUM 6.5 g/dL (6.4-8.2)
--- NOTE | 2018-06-19 07:38 | NUR ---
ALERT AND ORIENTED X 3. LUNGS CLEAR BILATERALLY IN ALL COMER. HEART SOUNDS S1 AND S2 HEARD IN ALL COMER. BOWEL SOUNDS ACTIVE X 4. STATES NO BM SINCE 06/17. LAP SITES TO ABD WITHOUT REDNESS OR DRAINAGE. IV TO LEFT HAND PATENT WITHOUT REDNESS. ENDOSCOPY SPECIALTY TECHNICIAN INFUSING. STATES WANTS TO SWITCH TO PO PAIN MEDICATION TO BE DISCHARGED. EDUCATION PROVIDED ON NEED FOR AMBULATION. STATES WILL AMBULATE ANY TIME IS ABLE. WILL AMBULATE PATIENT AFTER BREAKFAST. DENIES PAIN. DENIES NEEDS. WILL CONTINUE TO MONITOR.
[2018-06-19] MEDS ORDERED: OXYCODONE HCL5 M1 PO (08:31)
[2018-06-19 08:52] VITALS: BP 121/79
--- NOTE | 2018-06-19 09:02 | NUR ---
GUIDE CRUISE REMOVED PER ORDER. 17ML MORPHINE WASTED.
--- NOTE | 2018-06-19 10:01 | NUR ---
SITTING IN BED. AT BEDSIDE. DENIES NEEDS. WILL CONTINUE TO MONITOR.
--- NOTE | 2018-06-19 11:02 | NUR ---
DISCHARGE EDUCATION PROVIDED BOTH WRITTEN AND VERBAL. PATIENT VERBALIZED UNDERSTANDING. DENIES FURTHER QUESTIONS. IV REMOVED TO LEFT HAND WITH TIP INTACT. PATIENT DISCHARGED HOME WITH WITH ALL BELONGINGS.
== END 2018-06-19 11:04 | disposition home or self-care (01) | DRG 328 ==
LOC: D.OPS 06:49 → D.PAN 09:00 → D.OPS 09:15 → D.MS 11:45 → D.OPS 11:46 → D.MS 11:50
PROVIDERS: Anesthesiology; ADMIT Surgery; ATTEND Surgery
PROC: 0DV44ZZ Restriction of Esophagogastric Junction, Percutaneous Endoscopic Approach (ICD-10-PCS; principal; 2018-06-18 09:00)
PROC: 0BQT4ZZ Repair Diaphragm, Percutaneous Endoscopic Approach (ICD-10-PCS; 2018-06-18 09:00)
DX: K21.9 Gastro-esophageal reflux disease without esophagitis (principal); K44.9 Diaphragmatic hernia without obstruction or gangrene; R13.12 Dysphagia, oropharyngeal phase; F17.200 Nicotine dependence, unspecified, uncomplicated; I10 Essential (primary) hypertension; I25.10 Atherosclerotic heart disease of native coronary artery without angina pectoris; Z86.73 Personal history of transient ischemic attack (TIA), and cerebral infarction without residual deficits

== ENCOUNTER 2018-06-20 08:45 | Inpatient (IN) | payer OTHER ==
[~2018-06-20] VITALS: Ht 180.3 cm; Wt 64.4 kg
[2018-06-20] VITALS (9 sets, daily range): BP systolic 93–137; BP diastolic 59–88; BMI 19.8
[~2018-06-20 08:45] MED LIST changes: +OXYCODONE HCL5 M1 PO; +SINGULAIR10 MG PO
--- NOTE | 2018-06-20 09:25 | NUR ---
LAB INCLUDING 'S X 2 DRAWWN, LABELED AT BS AND SENT TO LAB
[2018-06-20 09:52] LABS: ALBUMIN 2.9 g/dL (3.4-5.0); ANION GAP 11.4 mmol/L (8-16); BILIRUBIN - TOTAL 0.94 mg/dL (0.2-1.3); CALCIUM 8.4 mg/dL (8.5-10.1); CARBON DIOXIDE 25.4 mmol/L (21.0-32.0); POTASSIUM - SERUM 3.8 mmol/L (3.5-5.1); PROTEIN - SERUM 6.5 g/dL (6.4-8.2)
--- NOTE | 2018-06-20 09:55 | NUR ---
XRAY @ BS FOR PCXR
[2018-06-20 09:57] LABS: BASOPHILS 0.1 % (0-2); EOSINOPHILS 0.3 % (0-7); HEMOGLOBIN 12.4 g/dL (12-16); IMMATURE GRANULOCYTES 0.2 % (0-5); LYMPHOCYTES 12.1 % (15-50); MCH 31.8 pg (26.0-34.0); MCHC 34.4 g/dL (31.0-37.0); MCV 92.3 fL (80.0-100.0); MEAN PLATELET VOLUME 10.9 fL (7.4-10.4); MONOCYTES 4.9 % (2-11); NEUTROPHILS 82.4 % (40-80); PLATELET COUNT 210 10x3/uL (130-400); RDW 16.2 % (11.5-14.5); WBC 14.6 10x3/uL (4.8-10.8)
[2018-06-20 10:05] LABS: APPEARANCE CLEAR (CLEAR); BACTERIA FEW /hpf (NONE SEEN); BILIRUBIN NEGATIVE (NEGATIVE); COLOR YELLOW (YELLOW); EPITHELIAL CELLS RARE /hpf (0-5); GLUCOSE NEGATIVE (NEGATIVE); KETONE SMALL mg/dL (NEGATIVE); NITRITE NEGATIVE (NEGATIVE); PROTEIN NEGATIVE (NEGATIVE); RED CELLS - URINE OCC /hpf (0-5); SPECIFIC GRAVITY 1.015 (1.005-1.020); UROBILINOGEN NORMAL (NORMAL); WHITE CELLS - URINE RARE /hpf (0-5)
--- NOTE | 2018-06-20 10:59 | NUR ---
CRITICAL LAB: D-DIMER 3.38 DR JIN NOTIFED AND CTA OF CHEST ORDERED
--- NOTE | 2018-06-20 11:17 | NUR ---
PAGED RT FOR NEB TX
--- NOTE | 2018-06-20 11:22 | NUR ---
TO CT VIA STRETCHER WITH TECH
--- NOTE | 2018-06-20 11:55 | NUR ---
DR JIN AT BS. O2 TURNED OFF. SATS DECREASED TO 79-80%. O2 TURNED BACK ON TO 4 L PNC AND SATS SLOWLY IMPROVED TO 92%. RT AT BS FOR NEB TX
--- NOTE | 2018-06-20 13:33 | NUR ---
SBAR REPORT CALLED TO SOILA RODRIGUEZ
--- NOTE | 2018-06-20 13:57 | MORECARE ---
CASE MANAGEMENT DISCHARGE SUMMARY PATIENT: MACARENA LUCIO UNIT: [id number] ADM DATE: 06/20/18 AGE: 57 : 58 SEX: F ROOM/BED: D.2216 AUTHOR: WILFRED HAYWARD PHYSICIAN: REFERRING PHYSICIAN: STACIE LOERA MD DATE OF SERVICE: 06/20/18 Discharge Plan Patient Name: MACARENA LUCIO [facility] [facility] 1960 Planned Disposition: Home Anticipated Discharge Date: 06/25/18 Discharge Date: Expected LOS: 5 Initial Reviewer: [email or web address] Initial Review Date: 06/20/2018 Generated: 06/20/18 2:57 pm DCPIA - Discharge Planning Initial Assessment Updated by [email or web address]: Charline Duong on 06/20/18 1:56 pm * Is the patient Alert and Oriented? Yes * How many steps to enter\exit or inside your home? Ramp * PCP Dr. Vega * Pharmacy [facility] * Preadmission Environment Home with Family * ADLs Partial Dependent * Partial ADLs (Assistance needed) Bathing * Equipment CPAP Nebulizer Oxygen Rolling Walker * Other Equipment O2 @ hs. Patient does not have portable. [employer] is her O2 company. * List name and contact numbers for known caregivers / representatives who currently or will assist patient after discharge: James Lucio - spouse - [phone] * Verbal permission to speak to the caregivers and representatives has been obtained from the patient. Yes * Community resources currently utilized None * Additional services required to return to the preadmission environment? Yes * Can the patient safely return to the preadmission environment? Yes * Has this patient been hospitalized within the prior 30 days at any hospital? Yes Patient Name: MACARENA LUCIO Page 20694 at 1357 All edits/amendments must be made on the electronic document DICTATION DATE: 06/20/18 1357 FIRST AID OFFICER: JESSENIA 06/20/18 1357 RPT#: [id number] DC DATE: STATUS: ADM IN [facility] [address] [place] [address] END OF REPORT
--- NOTE | 2018-06-20 14:07 | MORECARE ---
CASE MANAGEMENT DISCHARGE SUMMARY PATIENT: MACARENA LUCIO UNIT: [id number] ADM DATE: 06/20/18 AGE: 57 : 58 SEX: F ROOM/BED: D.2216 AUTHOR: YESY,DOC PHYSICIAN: REFERRING PHYSICIAN: STACIE LOERA MD DATE OF SERVICE: 06/20/18 Discharge Plan Patient Name: MACARENA LUCIO Facility: [facility]:[place] : 1960 Planned Disposition: Home Anticipated Discharge Date: 06/25/18 Discharge Date: Expected LOS: 5 Initial Reviewer: [email or web address] Initial Review Date: 06/20/2018 Generated: 06/20/18 3:07 pm DCP- Discharge Planning Updated by [id number]: Charline Duong on 06/20/18 1:[address] Patient Name: MACARENA LUCIO Admission Status: ER Accout number: [id number] Admission Date: 06-20-2018 : 1960 Admission Diagnosis: Attending: STACIE LOERA Current LOS: 1 Anticipated DC Date: 06-25-2018 Planned Disposition: Home Primary Insurance: [employer] Discharge Planning Comments: CM met with patient and her spouse, James, to complete initial dc planning assessment. Patient not able to answer questions at this time. CM educated patient's spouse on the CM role and verbal consent given by patient's spouse to complete assessment. Patient lives at home with her . He reports she as been independent in her care up until her recent abdominal surgery a few days ago. She is not able to lift more than 5 lbs post op. She is disoriented today but is normally A&O X 3. At discharge patients plans for her to return home with him and feels this is a safe discharge. CM discussed availability of home health, rehab services, and medical equipment. Spouse would like [facility] to follow up with them when she is discharged. Patient's spouse denied further known discharge needs at this time. CM will continue to follow and will assist as needed with dc plans/needs. Knowledge Architect: Charline Duong RN, [facility] DCPIA - Discharge Planning Initial Assessment Updated by [email or web address]: Charline Duong on 06/20/18 1:56 pm * Is the patient Alert and Oriented? Yes * How many steps to enter\exit or inside your home? Ramp * PCP Dr. Vega * Pharmacy [facility] * Preadmission Environment Home with Family * ADLs Partial Dependent * Partial ADLs (Assistance needed) Bathing * Equipment CPAP Nebulizer Oxygen Rolling Walker * Other Equipment O2 @ hs. Patient does not have portable. [employer] is her O2 company. * List name and contact numbers for known caregivers / representatives who currently or will assist patient after discharge: James Lucio - spouse - [phone] * Verbal permission to speak to the caregivers and representatives has been obtained from the patient. Yes * Community resources currently utilized None * Additional services required to return to the preadmission environment? Yes * Can the patient safely return to the preadmission environment? Yes * Has this patient been hospitalized within the prior 30 days at any hospital? Yes Last DP export: 06/20/18 12:57 p Patient Name: MACARENA LUCIO Page [phone] at 1407 All edits/amendments must be made on the electronic document DICTATION DATE: 06/20/18 1406 PATTERN PAINTER: JESSENIA 06/20/18 1406 RPT#: [id number] DC DATE: STATUS: ADM IN [facility] [address] [place] [address] END OF REPORT
[2018-06-21 00:57] VITALS: BP 98/61
[2018-06-21 05:16] VITALS: BP 116/73
--- NOTE | 2018-06-21 05:39 | NUR ---
I have reviewed this patient and I concur with the Shift Assessment completed by the Licensed Practical Nurse today this shift.
[2018-06-21 05:44] LABS: BASOPHILS 0.2 % (0-2); EOSINOPHILS 1.8 % (0-7); HEMATOCRIT 33.5 % (36.0-48.0); HEMOGLOBIN 11.2 g/dL (12-16); IMMATURE GRANULOCYTES 0.2 % (0-5); LYMPHOCYTES 31.4 % (15-50); MCH 31.3 pg (26.0-34.0); MCHC 33.4 g/dL (31.0-37.0); MCV 93.6 fL (80.0-100.0); MEAN PLATELET VOLUME 10.3 fL (7.4-10.4); MONOCYTES 8.9 % (2-11); NEUTROPHILS 57.5 % (40-80); RBC 3.58 10x6/uL (4.00-5.40); RDW 16.4 % (11.5-14.5)
[2018-06-21 05:49] LABS: PLATELET COUNT 165 10x3/uL (130-400); WBC 6.5 10x3/uL (4.8-10.8)
[2018-06-21 06:00] LABS: ANION GAP 10.5 mmol/L (8-16); CALCIUM 8.5 mg/dL (8.5-10.1); CARBON DIOXIDE 30.9 mmol/L (21.0-32.0); POTASSIUM - SERUM 3.4 mmol/L (3.5-5.1)
[2018-06-21 08:19] VITALS: BP 115/82
--- NOTE | 2018-06-21 10:33 | NUR ---
PATIENT STATES NAUSEA IS BETTER NOW. WILL CONTINUE TO MONITOR. AT BEDSIDE.
[2018-06-21 12:00] VITALS: BP 130/85
[2018-06-21 12:31] VITALS: Ht 180.3 cm; Wt 64.4 kg
[2018-06-21 18:39] VITALS: BP 122/85
--- NOTE | 2018-06-21 19:32 | NUR ---
IV THERAPY DISCONTINUED FROM RIGHT AC. VERBALIZED UNDERSTANDING OF DISCHARGE INSTRUCTIONS. WHEELED OUTSIDE TO MEET AT FRONT DOOR.
== END 2018-06-21 19:00 | disposition home or self-care (01) | DRG 871 ==
LOC: D.ER 08:45 → D.EDHOLD 12:08 → D.MS 12:44
PROVIDERS: Emergency Medicine; ADMIT Internal Medicine Nephrology; ATTEND Internal Medicine Nephrology
DX: A41.9 Sepsis, unspecified organism (principal); J96.21 Acute and chronic respiratory failure with hypoxia; K56.7 Ileus, unspecified; J98.11 Atelectasis; F17.213 Nicotine dependence, cigarettes, with withdrawal; J44.9 Chronic obstructive pulmonary disease, unspecified; I10 Essential (primary) hypertension; I25.10 Atherosclerotic heart disease of native coronary artery without angina pectoris

== ENCOUNTER → 2018-12-04 08:22 | Outpatient (CLI) | payer OTHER ==
[2018-06-21 12:31] VITALS: BMI 19.8
[~2018-12-04 08:22] MED LIST changes: +ENTRESTO 24 MG1 EACH PO; +TRELEGY ELLIPT1 EACH INH
--- NOTE | 2018-12-08 11:10 | ST ---
PATIENT:MACARENA JOSEPH MEDICAL RECORD: [id number] SEX: F LOCATION:[facility] ORDER #: ADMISSION DATE: 12/04/18 AGE OF PATIENT: 58 REFERRING PHYSICIAN: INTERPRETING PHYSICIAN: RACHEL GALICIA MD DATE OF SERVICE: 12/04/2018 PROCEDURE: Nuclear stress test. INDICATIONS: Angina, coronary artery disease, previous multivessel PTCA and stent, abnormal ECG, hypertension, hyperlipidemia, shortness of breath. She was exercised on standard Lexiscan protocol with 33 mCi of sestamibi injected at peak stress, 11 mCi used previously for rest images. FINDINGS: Gated SPECT reveals a dilated cardiomyopathy, ejection fraction 21%. SPECT imaging: Cardiolite was used as myocardial perfusion agent. There is a large fixed perfusion defect anteriorly, apically as well as septally compatible with previous anteroapical WI and septal myocardial infarction. This is overall fixed. There is no evidence of reversibility. The remaining segments with homogeneous uptake at rest and stress. OVERALL IMPRESSION: This is a markedly abnormal nuclear stress test, marked change from her previous studies. Previously, her ejection fraction was in the 60% range. She does have a history of PTCA and stent of the RCA and LAD. At this time, it appears that she has had a large anterior septal myocardial infarction with continued angina. It puts her at higher risk. Would proceed with repeat coronary angiography. TRANSINT:[id number] Voice Confirmation ID: [id number] DOCUMENT ID: [id number] RACHEL GALICIA MD at 1110 CC: MALKA SCHULER [id number] DICTATION DATE: 12/05/18 1113 MOTOR BUS DRIVER: 12/06/18 0716 [facility] CLI 12/04/18 [address] [place] [address]
== END | disposition home or self-care (01) ==
LOC: D.HCCARDIO 08:22
PROVIDERS: ATTEND Internal Medicine Interventional Cardiology
DX: I25.119 Atherosclerotic heart disease of native coronary artery with unspecified angina pectoris (principal)

== ENCOUNTER 2018-12-19 08:20 | Outpatient (CLI) | payer OTHER ==
[~2018-12-19] VITALS: Ht 180.3 cm; Wt 60.0 kg
--- NOTE | ~2018-12-19 | HEMODYNAMI ---
PATIENT:MACARENA JOSEPH MEDICAL RECORD: [id number] : 58 LOCATION:D.CAT ADMISSION DATE: 12/19/18 Generatedon:12/19/201810:52 Patient name: MACARENA JOSEPH Patient #: [id number] SSN: [id number] : 1960 Date of study: 12/19/2018 Page: Of Hemodynamic Procedure Report Patient Data Patient Demographics Procedure consent was obtained First Name: MACARENA Gender: Female Last Name: JAKE : 1960 [facility] Initial: R Age: 58 year(s) Patient #: [id number] Race: SSN: [id number] Additional ID: [id number] Contact details [address]: [address] [place] [address] COURT State: [place] City: [place] Zip code: [address] Past Medical History Performed procedures and imaging results Date Procedure Procedure Results Comments Stress testing with Positive SPECT MPI History of disease Date Diagnosis Comments Peripheral vascular disease Chronic lung disease->COPD CAD Allergies Allergen Reaction Date Comments Reported Other allergy 12/24/2014 sulfa Sulfa drugs 10/19/2016 Sulfa drugs 10/14/2017 Sulfa drugs 12/19/2018 Admission Admission Data Admission Date: 12/19/2018 Admission Time: 8:20 Arrival Date: 12/19/2018 Arrival Time: 0:00 [facility] #: [id number] Height (in.): 70.87 BSA: 1.77 (m2) Height (cm.): 180 BMI: 18.48 (kg/m2) Weight (lbs.): 132 Weight (kg.): 59.87 Lab Results Lab Result Date: 12/19/2018 Lab Result Time: 0:00 Biochemistry Name Units Result Min Max BUN mg/dl 20 --(----)*- 7 18 Creatinine mg/dl 0.9 --(-*--)-- 0.6 1.3 eGFR ml/min 67.81490 *-(----)-- 90 120 NONAFRICAN CBC Name Units Result Min Max Hematocrit % 41.1 -*(----)-- 42 54 Hemoglobin g/dl 14.1 --(*---)-- 13.5 17.5 Procedure Procedure Types Cath Procedure Diagnostic Procedure [facility] w/Coronaries Procedure Description Procedure Date Procedure Date: 12/19/2018 Procedure Start Time: 10:39 Procedure End Time: 10:47 Procedure Staff Name Function Delio Sanford MD Performing Physician Mariam Tracey RT Monitor Rin Casey RT Scrub Lacho Rich RN Nurse Procedure Data Cath Procedure Fluoroscopy Diagnostic fluoroscopy Total fluoroscopy Time: 1 time: 1 min min Diagnostic fluoroscopy Total fluoroscopy dose: 109 dose: 109 mGy mGy Contrast Material Contrast Material Type Amount (ml) Isovue 300 43 Entry Location Entry Primary Successful Side Size Upsize Upsize Entry Closure Succes sful Closure Location (Fr) 1 (Fr) 2 (Fr) Remarks Device Remarks Femoral Right 5 Fr Exoseal artery Estimated blood loss: 5 ml Diagnostic catheters Device Type Used For End Catheter Placement MULTIPACK Pigtail 5 Fr Procedure catheter MULTIPACK JL 4.0 5Fr Procedure catheter MULTIPACK 3DRC 5Fr Procedure catheter Procedure Complications No complications Procedure Medications Medication Administration Route Dosage Oxygen 6 l/min Lidocaine 2% added to field 20 Heparin Flush Bag added to field 2 bags (1000units/500ml NS) 0.9% NaCl I.V. 100 ml/hr Versed I.V. 2 mg Fentanyl I.V. 100 mcg Versed I.V. 2 mg Fentanyl I.V. 50 mcg Versed I.V. 2 mg Fentanyl I.V. 50 mcg Hemodynamics Rest BSA: 1.77 (m2) HGB: 14.1 (g/dl) O2 Consumption: Estimated: 161.59 (ml/min) O2 Co nsumption indexed: Estimated:91.29 (ml/min/m) Heart Rate: 60 (bpm) Snapshots Pre Cath Intra NCS Post Cath Vital Signs Time Heart Resp SPO2 etCO2 NIBP Rhythm Pain Sedation Rate (ipm) (%) (mmHg) (mmHg) Status Level (bpm) 10:24:23 57 16 99 0 126/77(95) NSR 0 (11) 10(A) , No pain 10:28:33 51 13 100 0 118/72(84) NSR 0 (11) 10(A) , No pain 10:32:41 53 13 100 0 119/75(89) NSR 0 (11) 10(A) , No pain 10:36:51 52 14 100 0 108/66(87) NSR 0 (11) 10(A) , No pain 10:40:59 56 18 97 0 97/58(80) NSR 0 (11) 9(A) , No pain 10:45:00 87 12 96 0 97/62(78) NSR 0 (11) 9(A) , No pain 10:47:36 101 12 98 0 98/77(85) NSR 0 (11) 10(A) , No pain Medications Time Medication Route Dose Verified Delivered Reason Notes Ef fectiveness by by 10:29:34 Oxygen simple 6 Delio Buffie used for pt mask l/min Juvenal Rich RN procedure sleeps with cpap and requests a mask 10:30:03 Lidocaine 2% added 20ml Delio Delio for local to vial Juvenal Sanford MD anesthetic field 10:30:13 Heparin Flush added 2 Delio Delio used for Bag to bags Juvenal Sanford MD procedure (1000units/500ml field NS) 10:30:19 0.9% NaCl I.V. 100 Delio Buffie Per ml/hr Juvenal Rich RN physician 10:36:41 Versed I.V. 2 mg Delio Buffie for Juvenal Rich RN sedation 10:36:50 Fentanyl I.V. 100 Delio Buffie for mcg Juvenal Rich RN sedation 10:40:07 Versed I.V. 2 mg Delio Buffie for Juvenal Rich RN sedation 10:40:10 Fentanyl I.V. 50 Delioabel Childsie for mcg Juvenal Rich RN sedation 10:43:42 Versed I.V. 2 mg Delio Buffie for Juvenal Rich RN sedation 10:43:47 Fentanyl I.V. 50 Delio Buffie for mcg Juvenal Rich RN sedation Procedure Log Time Note 9:54:58 Informed consent obtained and on chart 9:56:20 Procedure Status Elective Heart Cath (OP). 9:56:21 Time tracking: Regular hours (M-F 7:00 - 5:00) 9:56:25 Plan of Care:Hemodynamics will remain stable., Cardiac rhythm will remain stable., Comfort level will be maintained., Respiratory function will remain adequate., Patient/ family verbilizes understanding of procedure., Procedure tolerated without complication., Recovers from procedure without complications.. 9:56:33 H&P Date Dictated: 11/25/2018 Within 30 days and on chart., H&P Addendum completed by physician on day of procedure. (MUST COMPLETE FOR ALL OUTPATIENTS). 9:56:46 Patient allergic to Sulfa drugs 9:57:00 Patient Weight : 132 lbs 9:59:07 Patient Height : 70.87 inches 10:02:05 Arrival Date: 12/19/2018 12:00:00 AM 10:03:09 Lab Result : Hemoglobin 14.1 g/dl 10:03:09 Lab Result : eGFR NONAFRICAN 67.14257 ml/min 10:03:09 Lab Result : BUN 20 mg/dl 10:03:09 Lab Result : Creatinine 0.9 mg/dl 10:03:09 Lab Result : Hematocrit 41.1 % 10:06:45 Lacho Rich RN sent for patient. Start room use. 10:08:52 ACC Patient presents with Stable Angina CCS Anginal Class 3--Marked limitation of physical activity, angina occurs with ordinary activity.. 10:16:38 Patient received from Pre/Post Procedure Room to CCL 1 Alert and oriented. Tansferred to table in Supine position. 10:16:39 Warm blankets applied, and shadia hugger turned on for patient comfort. 10:16:39 Correct patient and procedure confirmed by team. 10:16:40 ECG and BP/O2 sat monitors applied to patient. 10:23:05 Baseline sample Acquired. 10:23:10 Rhythm: sinus bradycardia 10:23:12 Vital chart was started 10:23:13 Pre-procedure instructions explained to patient. 10:23:14 Pre-op teaching completed and patient verbalized understanding. 10:23:15 Family in patients room. 10:23:16 Patient NPO since Midnight. 10:23:23 Is the patient allergic to Iodine/contrast media? No. 10:23:25 Is patient on blood thinner?No 10:23:27 Patient diabetic? No. 10:23:29 Patient not . Patient is over age 55. 10:23:32 Previous problem with sedation/anesthesia? No ? 10:23:35 Snore? Yes 10:23:36 Sleep apnea? Yes 10:23:37 Deviated septum? No 10:23:37 Opens mouth fully? Yes 10:23:38 Sticks out tongue? Yes 10:23:42 Airway obstruction? Yes COPD 10:23:48 Dentures? No OUT 10:23:51 Pre procedure: right dorsailis pedis pulse 1+ Palpable, but thready & weak; easily obliterated 10:23:54 Patient pain scale 0/10 ?. 10:23:58 IV patent on arrival in left antecubital with 0.9% NaCl at [facility]. 10:24:00 Lab results completed and on chart. 10:24:05 Right groin area was prepped with chlora-prep and draped in sterile fashion 10:24:06 Alarms reviewed by R. N. 10:24:07 Sharps counted by scrub and verified by R.N. 10:29:04 Risk of Mortality: <.1% 10:29:08 Risk of blood transfusion: .8 10:29:12 Risk of JORDI: .5 10:29:16 Use device set Femoral Dx 10:29:17 ACIST Syringe (69951) opened to sterile field. 10:29:18 Bag Decanter (2002S) opened to sterile field. 10:29:19 ACIST Hand Control (05865) opened to sterile field. 10:29:19 ACIST Manifold (02834) opened to sterile field. 10:29:21 Tegaderm 4 x 4 (1626W) opened to sterile field. 10:29:22 Medline Cath Pack ([id number]) opened to sterile field. 10:29:23 DIAGNOSTIC Multipack 5Fr catheter set (UJ4910) opened to sterile field. 10:29:26 SHEATH 5FR [place] (EUS486) opened to sterile field. 10:29:27 EMERALD Guide Wire (901-509) opened to sterile field. 10:29:34 Oxygen 6 l/min simple mask was administered by Lacho Rich RN; used for procedure; pt sleeps with cpap and requests a mask Verbal order read back and verified. 10:30:03 Lidocaine 2% 20ml vial added to field was administered by Delio Sanford MD; for local anesthetic; Verbal order read back and verified. 10:30:13 Heparin Flush Bag (1000units/500ml NS) 2 bags added to field was administered by Delio Sanford MD; used for procedure; Verbal order read back and verified. 10:30:19 0.9% NaCl 100 ml/hr I.V. was administered by Lacho Rich RN; Per physician; Verbal order read back and verified. 10:35:43 --------ALL STOP TIME OUT------ 10:35:43 Final Timeout: patient, procedure, and site verified with staff and physician. All members of the team are in agreement. 10:35:45 Right groin site verified by team. 10:35:48 Fire Safety Assessment: A--An alcohol-based skin anteseptic being used preoperatively., C--Open oxygen or nitrous oxide is being used., D--An ESU, laser, or fiber-optic light is being used. 10:35:51 Physical assessment completed. ASA score P 2 - A patient with mild systemic disease as per Delio Sanford MD. 10:35:55 2) 60-89 Mildly reduced kidney function, and other findings (as for stage 1) point to kidney disease. 10:35:58 Maximum allowable contrast dose (3.7 X eGFR X 0.75)189 ml. 10:36:01 Sedation plan: IV Moderate Sedation Medication:Versed, Fentanyl 10:36:41 Versed 2 mg I.V. was administered by Lacho Rich RN; for sedation; Verbal order read back and verified. 10:36:50 Fentanyl 100 mcg I.V. was administered by Lacho Rich RN; for sedation; Verbal order read back and verified. 10:38:37 Procedure started. 10:38:37 Full Disclosure recording started 10:38:41 Zero performed for pressure channel P1 10:38:48 Zero performed for pressure channel P1 10:39:13 Local anesthetic to right femoral artery with Lidocaine 2% by Delio Sanford MD.INITIAL ACCESS ONLY 10:39:38 A 5 Fr sheath was inserted into the Right Femoral artery 10:40:07 Versed 2 mg I.V. was administered by Lacho Rich RN; for sedation; Verbal order read back and verified. 10:40:10 Fentanyl 50 mcg I.V. was administered by Lacho Rich RN; for sedation; Verbal order read back and verified. 10:40:26 A MULTIPACK Pigtail 5 Fr catheter was advanced over the wire and used for Procedure. 10:40:34 LV gram done using BOO 10:40:36 Injector settings: Ml/sec: 10, Volume: 20, 10:41:05 EF : 30 % 10:41:06 Catheter removed. 10:41:12 A MULTIPACK JL 4.0 5Fr catheter was advanced over the wire and used for Procedure. 10:42:39 LCA angiography performed. 10:42:41 Catheter removed. 10:42:49 A MULTIPACK 3DRC 5Fr catheter was advanced over the wire and used for Procedure. 10:43:22 RCA angiography performed. 10:43:24 Catheter removed. 10:43:29 ACCDominant side:Right 10:43:31 EXOSEAL 5Fr (EX500) opened to sterile field. 10:43:42 Versed 2 mg I.V. was administered by Lacho Rich RN; for sedation; Verbal order read back and verified. 10:43:47 Fentanyl 50 mcg I.V. was administered by Lacho Rich RN; for sedation; Verbal order read back and verified. 10:44:27 Sheath removed intact; hemostasis achieved with Exoseal to the Right Femoral artery. 10:44:29 Procedure ended.(Physican Out) 10:44:54 Fluoroscopy time 01.00 minutes. 10:44:58 Fluoroscopy dose: 109 mGy 10:44:58 Flurop Dose total: 109 10:45:06 Dose Area Product 6337 mGy/cm. 10:45:14 Contrast amount:Isovue 300 43ml. 10:45:17 Maximum allowable dose exceeded? No. 10:45:18 Sharps counted by scrub and verified by R.N. 10:45:21 Post-op/insertion site Right Femoral artery dressed using a 4 x 4 and Tegaderm. 10:45:27 Post-procedure physical assessment completed. ASA score P 2 - A patient with mild systemic disease as per Delio Sanford MD. 10:45:33 Post procedure rhythm: sinus rhythm 10:45:36 Estimated blood loss: 5 ml 10:45:37 Post procedure instruction explained to patient.Patient verbalizes understanding. 10:45:38 Patient needs reinforcement of post procedure teaching. 10:46:04 Procedure and supply charges have been captured, reviewed, submitted and are correct. 10:46:07 Procedure Complication : No complications 10:46:57 Vital chart was stopped 10:47:22 [facility] Findings: MVD- manage w/ optimal medication therapy 10:47:32 Operative report dictated upon procedure completion. 10:47:32 See physician's report for complete and final results. 10:47:35 Report given to Pre/Post Procedure Room. 10:47:45 Patient transfered to Pre/Post Procedure Room with Bed. 10:47:46 Procedure ended. 10:47:46 Full Disclosure recording stopped 10:47:49 End room use (Document Last) 10:50:18 End room use (Document Last) 10:50:50 End room use (Document Last) Device Usage Item Name Manufacture Quantity Catalog Hospital Part Current Minimal L ot# / Number Charge Number Stock Stock Serial# Code ACIST Acist 1 69790 [id number] 440808 [id number] 20 Syringe Medical (93692) Systems Inc Bag Microtek 1 2001S 058890 40958 763722 5 Decanter Medical Inc. () ACIST Hand Acist 1 41827 900706 115635 309713 5 Control Medical (34225) Systems Inc ACIST Acist 1 31898 765736 906892 463349 5 Manifold Medical (94749) Systems Inc Tegaderm 4 3M 1 1626W 481509 917014 601287 5 x 4 (1626W) Medline Medline 1 [id number] 492091 28638 248437 5 Cath Pack ([id number]) DIAGNOSTIC Cardinal 1 PL8617 609263 79275 868121 30 Multipack Health 5Fr catheter set (QE7402) SHEATH 5FR Terumo 1 LKL397 748505 778467 001469 5 [place] (CNM094) EMERALD Cardinal 1 502-455 695648 855274 430495 5 Guide Wire Health (502-455) MULTIPACK Cardinal 1 011023 5 Pigtail 5 Health Fr catheter MULTIPACK Cardinal 1 384655 5 JL 4.0 5Fr Health catheter MULTIPACK Cardinal 1 311303 5 3DRC 5Fr Health catheter EXOSEAL 5Fr Cardinal 1 EX500 021571 231639 130762 10 (EX500) Health Signature Audit [place] Stage Time Signature Unsigned Intra-Procedure 12/19/2018 Mariam Tracey 10:50:18 AM RT(R) Intra-Procedure 12/19/2018 Lacho Rich RN 10:50:50 AM Intra-Procedure 12/19/2018 Delio Sanford 10:52:12 AM [facility] [address] [id number]
[~2018-12-19 08:20] MED LIST changes: -ENTRESTO 24 MG1 EACH PO; -TRELEGY ELLIPT1 EACH INH
[2018-12-19] MEDS ORDERED: NORVASC10 MG PO (08:51)
[2018-12-19] MEDS ORDERED: TRELEGY ELLIPT1 EACH INH (08:53)
[2018-12-19 09:05] VITALS: BP 134/85; Ht 180.3 cm; Wt 60.0 kg
[2018-12-19 09:06] LABS: BASOPHILS 0.1 % (0-2); HEMATOCRIT 41.1 % (36.0-48.0); HEMOGLOBIN 14.1 g/dL (12-16); IMMATURE GRANULOCYTES 0.2 % (0-5); MCH 33.1 pg (26.0-34.0); MCHC 34.3 g/dL (31.0-37.0); MCV 96.5 fL (80.0-100.0); MEAN PLATELET VOLUME 10.9 fL (7.4-10.4); MONOCYTES 6.1 % (2-11); NEUTROPHILS 70.6 % (40-80); RBC 4.26 10x6/uL (4.00-5.40); RDW 15.1 % (11.5-14.5); WBC 10.7 10x3/uL (4.8-10.8)
[2018-12-19 09:14] LABS: PLATELET COUNT 221 10x3/uL (130-400)
[2018-12-19 09:33] LABS: ANION GAP 11.7 mmol/L (8-16); CALCIUM 9.4 mg/dL (8.5-10.1); CARBON DIOXIDE 26.6 mmol/L (21.0-32.0); CHOL - HDL RATIO 3.2 ratio (2.3-4.1); CREATININE - SERUM 0.9 mg/dL (0.6-1.3); POTASSIUM - SERUM 4.3 mmol/L (3.5-5.1)
--- NOTE | 2018-12-19 10:50 | NUR ---
PT RECEIVED VIA STRETCHER FROM DIESEL TRACTOR OPERATOR POST PROCEDURE FOR RECOVERY. PT DROWSY, BUT VERBALLY AROUSABLE. PT C/O NAUSEA, ORDERS RECEVIED. PT PLACED ON CARDIAC MONITORS AND O2 AT 2L/MASK. HR TACHY RATE 103, BP 124/62, RR 10, SAT 94. PT DENIES PAIN OR DISCOMFORT. R GROIN W 5FR EXOCELE, DRESSING CDI NO BLEEDING OR HEMATOMA NOTED. LEG PINK AND WARM, PEDAL PULSES PALPABLE. 1055 4MG ZOPHRAN GIVEN SIVP PER SOILA FERREIRA FOR NAUSEA. PT INSTRUCTED TO KEEP HEAD ON PILLOW AND LEG STRAIGHT, SHE VERBALIZED UNDERSTANDING. CALL LIGHT IN REACH
--- NOTE | 2018-12-19 11:16 | NUR ---
PT RESTING WITH EYES CLOSED, DRESSING REMAINS CDI TO RIGHT GROIN, AREA IS SOFT AND NONTENDER. PEDAL PULSES PALPABLE. NSR, RATE IS 79, BP IS 122/70. HOB IS FLAT, RESP WITH EASE ON O2. AT BEDSIDE, CALL LIGHT IN REACH. BED LOCKED AND LOW, SIDE RAILS UP X2.
[2018-12-19] MEDS ORDERED: ENTRESTO 24 MG1 EACH PO (11:28)
--- NOTE | 2018-12-19 11:34 | NUR ---
DR GALICIA HAS ROUNDED ON PT AND SPOKEN WITH PT AND . DR GALICIA INSTRUCTED PT/ FOR PT TO STOP NORVASC TABLETS AND TO START ENTRESTO TABLETS TWICE DAILY, PT AND VERBALIZE UNDERSTANDING. DRESSING REMAINS CDI RIGHT GROIN, AREA IS SOFT AND NONTENDER. PEDAL PULSES PALPABLE. HOB IS FLAT.
--- NOTE | 2018-12-19 11:44 | NUR ---
DRESSING CDI RIGHT GROIN, AREA IS SOFT AND NONTENDER. PEDAL PULSES PALPABLE. PT IS ALERT AND DENIES ANY C/O. AT BEDSIDE, HOB IS FLAT, CALL LIGHT IN REACH.
--- NOTE | 2018-12-19 12:08 | NUR ---
DRESSING REMAINS CDI RIGHT GROIN, AREA IS SOFT AND NONTENDER. PEDAL PULSES PALPABLE. PT IS ALERT AND DENIES ANY C/O. NSR RATE IS 66, BP IS 113/77. HOB ELEVATED AND APPLE JUICE SERVED. PT STATES NO NAUSEA AT THIS TIME BUT STATES DOES NOT WANT SANDWICH, ONLY PO FLUIDS.
--- NOTE | 2018-12-19 12:24 | NUR ---
DRESSING REMAINS CDI, PEDAL PULSES PALPABLE. PT HAS TIMO APPLE JUICE WITH NO C/O NAUSEA. DENIES ANY NV DEFICIT TO RLE. AT BEDSIDE. DENIES NEEDS AT THIS TIME. HOB IS FULLY ELEVATED.
--- NOTE | 2018-12-19 12:51 | NUR ---
1240 DRESSING REMAINS CDI RIGHT GROIN, AREA IS SOFT AND NONTENDER. PEDAL PULSES PALPABLE. PT DENIES ANY NV DEFICIT TO RLE. IV DC'D WITH CATH INTACT AND PT IS DRESSING FOR DC TO HOME WITH ASSIST. DC INSTRUCTIONS HAVE BEEN REVIEWED WITH PT AND WHO VERBALIZE UNDERSTANDING. ENTRESTO PRESCRIPTION AND MED COUNSELOR SHEETS TO PT. PT VERBALIZES UNDERSTANDING TO STOP NORVASC. 1250 PT HAS DRESED FOR DC TO HOME.PT ESCORTED TO PRIVATE AUTO VIA WC BY NURSE WITH DRIVING HER HOME. PT HAS ALL PERSONAL BELONGINGS AND DC INSTRUCTIONS AT TIME OF DISCHARGE.
--- NOTE | 2018-12-23 11:41 | OP ---
PATIENT NAME: MACARENA JOSEPH MEDICAL RECORD: [id number] :58 LOCATION:D.CAT ADMISSION DATE: SURGEON: RACHEL GALICIA MD DATE OF OPERATION: 12/19/2018 DATE OF SERVICE: 12/19/2018 PROCEDURES: 1. Left heart catheterization. 2. Selective coronary angiography. 3. Left ventriculogram. INDICATION: Cardiomyopathy, angina, congestive heart failure. PROCEDURE IN DETAIL: Informed consent was obtained. After a detailed explanation of the risks, benefits as well as alternative therapies, the patient elected to proceed with angiogram and heart catheterization. The right femoral area was prepped and draped in normal sterile fashion. Right femoral artery was cannulated via modified Seldinger technique with placement of 6-Spanish sheath. All catheters exchanged through this sheath. FINDINGS: Left ventriculogram was performed in standard 30-degree BOO view, reveals global hypokinesis throughout all segments. Overall ejection fraction is 20%. SELECTIVE CORONARY ANGIOGRAPHY: 1. Left main is with no significant angiographic disease. 2. Left anterior descending has previously placed stents, these are closed. The distal LAD fills via right to left collaterals. 3. The left circumflex has mild irregularities, but no flow-limiting stenosis. 4. The right coronary has previously placed stent that is widely patent with no significant restenosis. No disease elsewise at the RCA or its branches. OVERALL IMPRESSION: Ischemic cardiomyopathy with total closure of the left anterior descending, well-developed right to left collaterals, center medical management on treatment of the cardiomyopathy. TRANSINT:[id number] Voice Confirmation ID: [id number] DOCUMENT ID: [id number] RACHEL GALICIA MD at 1141 CC: [id number] DICTATION DATE: 12/19/18 1050 DIRECTOR TALENT: 12/19/18 1100 DEP CLI 12/19/18 [id number] [place] [address]
== END 2018-12-19 12:50 | disposition home or self-care (01) ==
LOC: D.CATH 08:20 → D.CLR 08:30 → D.CATH 10:30
PROVIDERS: ATTEND Internal Medicine Interventional Cardiology
DX: R94.30 Abnormal result of cardiovascular function study, unspecified (principal); I50.9 Heart failure, unspecified; I20.9 Angina pectoris, unspecified; I42.9 Cardiomyopathy, unspecified

== ENCOUNTER 2019-02-20 18:32 | Emergency (ER) | payer OTHER ==
[~2019-02-20] VITALS: Ht 180.3 cm; Wt 56.8 kg
[~2019-02-20 18:32] MED LIST changes: +ENTRESTO 24 MG1 EACH PO; +TRELEGY ELLIPT1 EACH INH
[2019-02-20 18:44] VITALS: Ht 180.3 cm; Wt 56.8 kg
[2019-02-20 19:17] LABS: BASOPHILS 0.1 % (0-2); EOSINOPHILS 0 % (0-7); HEMATOCRIT 39.6 % (36.0-48.0); HEMOGLOBIN 13.7 g/dL (12-16); IMMATURE GRANULOCYTES 0.2 % (0-5); LYMPHOCYTES 7.7 % (15-50); MCH 33.1 pg (26.0-34.0); MCHC 34.6 g/dL (31.0-37.0); MCV 95.7 fL (80.0-100.0); MEAN PLATELET VOLUME 10.5 fL (7.4-10.4); MONOCYTES 1.9 % (2-11); NEUTROPHILS 90.1 % (40-80); PLATELET COUNT 207 10x3/uL (130-400); RBC 4.14 10x6/uL (4.00-5.40); RDW 14.3 % (11.5-14.5); WBC 12.7 10x3/uL (4.8-10.8)
[2019-02-20 19:34] LABS: APTT 33.3 SECONDS (22.8-39.4); INR 1.05 (0.85-1.17); PROTIME 13.2 SECONDS (11.6-15.0)
[2019-02-20 19:38] LABS: CALC OSMOLALITY 282 mosm/kg (275-300); CALCIUM 9.5 mg/dL (8.5-10.1); CARBON DIOXIDE 24.8 mmol/L (21.0-32.0); CHLORIDE - SERUM 103 mmol/L (98-107); CREATININE - SERUM 1.1 mg/dL (0.6-1.3); GLUCOSE 143 mg/dL (74-106); SODIUM 138 mmol/L (136-145); UREA NITROGEN 26 mg/dL (7-18); eGFR NON AFRICAN AMERICAN 54 mL/min (90-120)
[2019-02-20 19:50] LABS: ALBUMIN 3.9 g/dL (3.4-5.0); ALKALINE PHOSPHATASE 99 U/L (46-116); ALT (SGPT) 16 U/L (10-68); AMYLASE - SERUM 56 U/L (25-115); BILIRUBIN - TOTAL 0.57 mg/dL (0.2-1.3); CKMB 1.2 U/L (0.0-3.6); CREATINE KINASE 35 UL (21-215); LIPASE 84 U/L (73-393); MAGNESIUM - SERUM 1.6 mg/dL (1.8-2.4); TROPONIN-I < 0.017 ng/mL (0.000-0.060)
[2019-02-20 23:06] LABS: APPEARANCE CLEAR (CLEAR); BILIRUBIN NEGATIVE (NEGATIVE); COLOR YELLOW (YELLOW); GLUCOSE NEGATIVE (NEGATIVE); KETONE MODERATE mg/dL (NEGATIVE); NITRITE NEGATIVE (NEGATIVE); PROTEIN NEGATIVE (NEGATIVE); SPECIFIC GRAVITY 1.015 (1.005-1.020); UROBILINOGEN NORMAL (NORMAL)
[2019-02-20] MEDS ORDERED: PHENERGAN25 M1 PO (23:15)
[2019-02-20 23:30] VITALS: BP 107/65
== END 2019-02-20 23:30 | disposition home or self-care (01) ==
LOC: D.ER 18:32
PROVIDERS: Family Medicine
DX: A05.9 Bacterial foodborne intoxication, unspecified (principal); R11.2 Nausea with vomiting, unspecified; R19.7 Diarrhea, unspecified; Z86.73 Personal history of transient ischemic attack (TIA), and cerebral infarction without residual deficits; J44.9 Chronic obstructive pulmonary disease, unspecified; Z99.81 Dependence on supplemental oxygen; I10 Essential (primary) hypertension; Z72.0 Tobacco use; I25.10 Atherosclerotic heart disease of native coronary artery without angina pectoris; I73.9 Peripheral vascular disease, unspecified; E11.40 Type 2 diabetes mellitus with diabetic neuropathy, unspecified

== ENCOUNTER → 2019-05-18 13:44 | Outpatient (CLI) | payer OTHER ==
[2019-02-20 18:44] VITALS: BMI 17.4
[~2019-05-18 13:44] MED LIST changes: +PHENERGAN25 M1 PO
== END | disposition home or self-care (01) ==
LOC: D.HCCECHO 13:30
PROVIDERS: ATTEND Internal Medicine Cardiovascular Disease
DX: I25.10 Atherosclerotic heart disease of native coronary artery without angina pectoris (principal)

== ENCOUNTER → 2019-07-29 16:50 | Outpatient (CLI) | payer OTHER ==
[2019-02-20 18:44] VITALS: BMI 17.4
[2019-07-29 17:15] LABS: CHOL - HDL RATIO 2.8 ratio (2.3-4.1); LDL-HDL RATIO 1.4 ratio (1.5-3.5)
== END | disposition home or self-care (01) ==
LOC: D.LABREF 16:50
PROVIDERS: ATTEND Internal Medicine Interventional Cardiology
DX: E78.5 Hyperlipidemia, unspecified (principal)

== ENCOUNTER 2020-06-13 20:04 | Inpatient (IN) | payer OTHER ==
[~2020-06-13] VITALS: Ht 180.3 cm; Wt 61.1 kg
[2020-06-13 20:24] LABS: BASOPHILS 0.2 % (0-2); EOSINOPHILS 0.5 % (0-7); HEMATOCRIT 48.8 % (36.0-48.0); HEMOGLOBIN 16.8 g/dL (12-16); IMMATURE GRANULOCYTES 0.4 % (0-5); LYMPHOCYTE ABS# 2.48 10x3/uL (1.18-3.74); LYMPHOCYTES 15.2 % (15-50); MCH 32.5 pg (26.0-34.0); MCHC 34.4 g/dL (31.0-37.0); MCV 94.4 fL (80.0-100.0); MEAN PLATELET VOLUME 10.7 fL (7.4-10.4); MONOCYTES 5.4 % (2-11); NEUTROPHIL ABS# 12.77 10x3/uL (1.56-6.13); NEUTROPHILS 78.3 % (40-80); RBC 5.17 10x6/uL (4.00-5.40); RDW 15.1 % (11.5-14.5); WBC 16.3 10x3/uL (4.8-10.8)
[2020-06-13 20:26] LABS: PLATELET COUNT 270 10x3/uL (130-400)
[2020-06-13 20:34] LABS: INR 1.09 (0.85-1.17)
[2020-06-13 21:23] LABS: CALC OSMOLALITY 286 mosm/kg (275-300); CALCIUM 10.3 mg/dL (8.5-10.1); CARBON DIOXIDE 25.2 mmol/L (21.0-32.0); CHLORIDE - SERUM 102 mmol/L (98-107); CREATININE - SERUM 1.7 mg/dL (0.6-1.3); GLUCOSE 108 mg/dL (74-106); POTASSIUM - SERUM 4.6 mmol/L (3.5-5.1); SODIUM 142 mmol/L (136-145); UREA NITROGEN 22 mg/dL (7-18); eGFR NON AFRICAN AMERICAN 32 mL/min (90-120)
[2020-06-13 21:30] VITALS: BP 118/82
[2020-06-13 21:40] LABS: ALBUMIN 4.1 g/dL (3.4-5.0); ALKALINE PHOSPHATASE 105 U/L (30-120); ALT (SGPT) 17 U/L (10-68); BILIRUBIN - TOTAL 0.93 mg/dL (0.2-1.3); CREATINE KINASE 154 UL (21-215); PROTEIN - SERUM 8.6 g/dL (6.4-8.2)
--- NOTE | 2020-06-13 21:43 | NUR ---
PT WENT TO USE THE RESTROOM, PT PASSED OUT ON TOILET, WHILE WITH PT, PT PASSED OUT 3 TIME ON TOILET, GOT PT INTO BED, PT CONTINUING TO WAKE UP CONFUSED THEN PASS BACK OUT WITHIN A MIN. CALLED DOCTOR INTO ROOM, PERFORMED EKG, AND STARTED FLUIDS
[2020-06-13 21:44] LABS: TROPONIN-I < 0.017 ng/mL (0.000-0.060)
[2020-06-13 22:07] LABS: BILIRUBIN NEGATIVE (NEGATIVE); KETONE NEGATIVE (NEGATIVE); NITRITE NEGATIVE (NEGATIVE); UROBILINOGEN NORMAL mg/dL (< 2)
[2020-06-13 22:12] LABS: WHITE CELLS - URINE 0-5 HPF (0-4)
[2020-06-13 22:13] LABS: BACTERIA FEW HPF (NONE SEEN); SQUAMOUS EPITHELIAL 0-5 HPF (0-4)
[2020-06-13 22:19] LABS: UDS - AMPHET NEGATIVE QUAL (NEGATIVE); UDS - BARB NEGATIVE QUAL (NEGATIVE); UDS - BENZO POSITIVE QUAL (NEGATIVE); UDS - COCAINE NEGATIVE QUAL (NEGATIVE); UDS - OPIATE NEGATIVE QUAL (NEGATIVE); UDS - PCP NEGATIVE QUAL (NEGATIVE); UDS - THC POSITIVE QUAL (NEGATIVE)
[2020-06-13 22:30] VITALS: BP 130/88
[2020-06-13 23:30] VITALS: BP 128/89
[2020-06-14] VITALS (25 sets, daily range): BP systolic 50–136; BP diastolic 38–103; Ht 180.3 cm; Wt 61.1 kg
[2020-06-14] MEDS ORDERED: XANAX1 MG PO (00:25)
--- NOTE | 2020-06-14 02:40 | NUR ---
Spoke to Fox in radiology to inquire about stat carotid US and echo. Stated order to be completed in the am per Dr. Jones as written on order req. submitted to radiology from ER. Clarified with Meka in ER.
[2020-06-14 04:55] LABS: BASOPHILS 0.2 % (0-2); EOSINOPHILS 1.4 % (0-7); HEMATOCRIT 43.1 % (36.0-48.0); HEMOGLOBIN 14.6 g/dL (12-16); IMMATURE GRANULOCYTES 0.1 % (0-5); LYMPHOCYTE ABS# 2.85 10x3/uL (1.18-3.74); LYMPHOCYTES 23.4 % (15-50); MCH 31.7 pg (26.0-34.0); MCHC 33.9 g/dL (31.0-37.0); MCV 93.5 fL (80.0-100.0); MONOCYTES 6.8 % (2-11); NEUTROPHIL ABS# 8.28 10x3/uL (1.56-6.13); NEUTROPHILS 68.1 % (40-80); PLATELET COUNT 245 10x3/uL (130-400); RBC 4.61 10x6/uL (4.00-5.40); RDW 15.1 % (11.5-14.5)
[2020-06-14 05:17] LABS: WBC 12.2 10x3/uL (4.8-10.8)
[2020-06-14 05:19] LABS: APTT 32.5 SECONDS (22.8-39.4); INR 1.17 (0.85-1.17); PROTIME 13.8 SECONDS (11.6-15.0)
[2020-06-14 05:20] LABS: ALBUMIN 3.3 g/dL (3.4-5.0); ANION GAP 14.3 mmol/L (8-16); BILIRUBIN - TOTAL 0.69 mg/dL (0.2-1.3); CALCIUM 8.8 mg/dL (8.5-10.1); CARBON DIOXIDE 24.9 mmol/L (21.0-32.0); CREATININE - SERUM 1.3 mg/dL (0.6-1.3); MAGNESIUM - SERUM 1.8 mg/dL (1.8-2.4); POTASSIUM - SERUM 4.2 mmol/L (3.5-5.1); PROTEIN - SERUM 6.9 g/dL (6.4-8.2)
[2020-06-14 09:27] LABS: CHOL - HDL RATIO 3.4 ratio (2.3-4.1); LDL-HDL RATIO 2.2 ratio (1.5-3.5)
--- NOTE | 2020-06-14 17:55 | NUR ---
PT BECAME UNRESPONSIVE IN CT SCAN AND DIAPHORETIC. BACK TO ICU, BP 80/[address] CRENSHAW. CALLED DR MALONEY. REC'D NEW ORDERS.
--- NOTE | 2020-06-14 18:16 | NUR ---
DR GIORDANO CONSULTED AND PACKAGING INSPECTOR BRANDEN SPOKE TO HIM AND REPORTED RECENT EVENTS.
[2020-06-15] VITALS (23 sets, daily range): BP systolic 88–148; BP diastolic 53–87
[2020-06-15 04:43] LABS: BASOPHILS 0 % (0-2); EOSINOPHILS 0.1 % (0-7); HEMATOCRIT 44.1 % (36.0-48.0); HEMOGLOBIN 14.5 g/dL (12-16); IMMATURE GRANULOCYTES 0.2 % (0-5); LYMPHOCYTE ABS# 1.16 10x3/uL (1.18-3.74); LYMPHOCYTES 12.2 % (15-50); MCH 31.6 pg (26.0-34.0); MCHC 32.9 g/dL (31.0-37.0); MEAN PLATELET VOLUME 11.1 fL (7.4-10.4); MONOCYTES 0.4 % (2-11); NEUTROPHILS 87.1 % (40-80); PLATELET COUNT 230 10x3/uL (130-400); RBC 4.59 10x6/uL (4.00-5.40); RDW 15.4 % (11.5-14.5); WBC 9.5 10x3/uL (4.8-10.8)
[2020-06-15 04:47] LABS: MCV 96.1 fL (80.0-100.0)
[2020-06-15 05:03] LABS: ALBUMIN 3.4 g/dL (3.4-5.0); BILIRUBIN - TOTAL 0.55 mg/dL (0.2-1.3); CALCIUM 9.6 mg/dL (8.5-10.1); CARBON DIOXIDE 26.8 mmol/L (21.0-32.0); CREATININE - SERUM 1.2 mg/dL (0.6-1.3); MAGNESIUM - SERUM 1.6 mg/dL (1.8-2.4); PROTEIN - SERUM 6.7 g/dL (6.4-8.2)
[2020-06-15 05:19] LABS: ANION GAP 12.5 mmol/L (8-16); POTASSIUM - SERUM 5.3 mmol/L (3.5-5.1)
--- NOTE | 2020-06-15 06:17 | NUR ---
Shift summary: No syncopal episode observed or reported. Blood pressure low with adequate MAP at times. Environment assessed for safety, personal items within reach. Plan of care discussed.
--- NOTE | 2020-06-15 10:06 | NUR ---
Nutrition Follow-up: Pt reports not eating this AM 2/2 possible procedure. Ate well yesterday. Nausea last night; received Zofran. Wt: 132.2# (06/15) Labs noted: K+ 5.3, Glu 129, Mg 1.6, Alb 3.4 Meds noted: Protonix, electrolyte protocol -RD follow-up: 06/17
--- NOTE | 2020-06-15 10:44 | NUR ---
APPROX 1020 YELLING FROM PTS ROOM, PT SITTING UPRIGHT IN BED WITH UPPER EXTREMETIES SHAKING, EYES UNFOCUSED, DOES NOT RESPOND TO ANY STIMULI, PT THEN LAID FLAT IN BED AND CONTINUED WITH SEIZURE LIKE SHAKING OF ENTIRE BODY, DANIELA BRUCE IN UNIT AND CALLED TO ROOM, PT THEN ROLLED ONTO RIGHT SIDE AND BEGAN WHAT APPEARED LIKE SLEEPING WITH SNORING AUDIBLE INWHAT SEEMED TO BE AN POSTICTAL STATE, EVENT LASTING APPROX 2/[address] PURVIS CALLED WITH ORDERS FOR MRI, NO CONTRAST DUE TO CONTRAST REACTION YESTERDAY EVENING, EEG, AND KINA, MRI AND EEG NOTIFIED, ALSO NOTIFIED.
--- NOTE | 2020-06-15 14:51 | EC ---
PATIENT:MACARENA JOSEPH DATE OF SERVICE: 06/13/20 SEX: F MEDICAL RECORD: [id number] DATE OF : 58 LOCATION:[facility] D230 AGE OF PATIENT: 59 ADMISSION DATE: 06/13/20 REFERRING PHYSICIAN: INTERPRETING PHYSICIAN: VA LORENZO MD ECHOCARDIOGRAM REPORT ECHO CHARGES 4 ECHO COMPLETE Date: 06/14/20 CLINICAL DIAGNOSIS: SYNCOPE ECHOCARDIOGRAPHIC MEASUREMENTS (adult normal given) AC root (d.<3.7cm) 2.5 cm LV Septum d (<1.2 cm> 0.8 cm Valve Excursion 0.9 cm LV Septum (systole) 0.9 cm Left Atria (s.<4.0cm> 2.5 cm LVPW d(<1.2cm) 0.9 cm RV (d.<2.3cm) 2.3 cm LVPW (sytole) 1.2 cm LV diastole(<5.6CM) 6.2 cm MV E-F(>70mm/sec) cm LV systole 5.6 cm LVOT Diameter 1.7 cm MV exc.(>10mm) 0.7 cm Est.ejection fraction (50-75%) % DOPPLER: LVIT cm/sec A 75 cm/sec E 52 cm/sec LA cm/sec RVSP 18 mmHg LVOT 137 cm/sec AOP1/2T m/s Asc. Ao 151 cm/sec RVOT 92 cm/sec RA cm/sec PA 68 cm/sec AV Gradient Peak 9.1 mmHg AV Mean 4.9 mmHg AV Area 1.8 cm MV Gradient Peak 4.2 mmHg MV Mean 2.1 mmHg MV Area cm COMMENTS: Manufacturing Quality Engineer: Duglas HOFFMAN Steel Finisher: 5 Dr. Lorenzo TAPE# Pericardial Effusion N DATE OF SERVICE: CLINICAL DIAGNOSIS: Syncope. INTERPRETATION: A dilated left ventricular chamber with moderate global LV contractile dysfunction with ejection fraction of 40% to 45%. Left atrial chamber appears normal. Right atrium and right ventricular chamber size and function appears normal. Aortic valve not well visualized. No aortic regurgitation noted. Mitral valve appeared normal. No mitral regurgitation noted. Tricuspid valve appears normal. Trace tricuspid regurgitation. ECHOCARDIOGRAM REPORT [id number] MACARENA JOSEPH Pulmonic valve is not well visualized. No pulmonary insufficiency noted. No pericardial effusion noted. IMPRESSION: Technically difficult study, dilated left ventricular chamber with moderate global LV contractile dysfunction with an ejection fraction of 40% to 45%. TRANSINT:[id number] Voice Confirmation ID: [id number] DOCUMENT ID: [id number] VA LORENZO MD at 1451 CC: [id number] DICTATION DATE: 06/14/20 1504 ASSOCIATE JUSTICE: 06/14/20 1657 ADM IN [facility] [address] [place] [address]
--- NOTE | 2020-06-15 15:34 | NUR ---
PT ABLE TO REPOSITION SELF, NO CHANGES FROM AM ASSESSMENT NOTED, DENIES ALL NEEDS
[2020-06-16] VITALS (13 sets, daily range): BP systolic 101–123; BP diastolic 58–89
[2020-06-16 05:28] LABS: ALBUMIN 3.3 g/dL (3.4-5.0); ANION GAP 10.6 mmol/L (8-16); BILIRUBIN - TOTAL 0.49 mg/dL (0.2-1.3); CALCIUM 9.5 mg/dL (8.5-10.1); CARBON DIOXIDE 29.8 mmol/L (21.0-32.0); CREATININE - SERUM 0.9 mg/dL (0.6-1.3); MAGNESIUM - SERUM 1.7 mg/dL (1.8-2.4); PROTEIN - SERUM 6.8 g/dL (6.4-8.2)
[2020-06-16 05:49] LABS: BASOPHILS 0.1 % (0-2); EOSINOPHILS 0.4 % (0-7); HEMOGLOBIN 13.6 g/dL (12-16); IMMATURE GRANULOCYTES 0.1 % (0-5); LYMPHOCYTE ABS# 3.38 10x3/uL (1.18-3.74); LYMPHOCYTES 24.1 % (15-50); MCHC 33.2 g/dL (31.0-37.0); MCV 96.5 fL (80.0-100.0); MEAN PLATELET VOLUME 11.1 fL (7.4-10.4); MONOCYTES 5.1 % (2-11); NEUTROPHIL ABS# 9.81 10x3/uL (1.56-6.13); NEUTROPHILS 70.2 % (40-80); PLATELET COUNT 222 10x3/uL (130-400); RBC 4.25 10x6/uL (4.00-5.40); RDW 15.8 % (11.5-14.5)
[2020-06-16 05:50] LABS: POTASSIUM - SERUM 4.4 mmol/L (3.5-5.1)
--- NOTE | 2020-06-16 16:43 | NUR ---
PT ARRIVES TO ROOM VIA STRETCHER ESCORTED BY ICU STAFF. PT IS AAO X 4 AND ANSWERS ALL QUESTIONS APPROPRIATELY. PT SPOUSE IS AT BEDSIDE. PT RESPIRATIONS ARE EVEN AND UNLABORED AND NO APPARENT S/S OF DISTRESS NOTED. PT EDUCATED ON M/S FLOOR POLICY. PT VERBALIZES UNDERSTANDING. ALL FALL PRECAUTIONS IN PLACE. OWEN ALARM IS ON AND WORKING. ALLERGY BAND PLACED ON PT LEFT WRIST. INCENTIVE SPIROEMTER GIVEN AND EDUCATION PROVIDED. PT VERBALIZES UNDERSTANDING AND GIVES APPROPRIATE RETURN DEMONSTRATION REACHING 1999. SCDS PLACED ON PT BLE. NON SKID FOOTWEAR PLACED ON PT FEET. PT INFORMED TO USE CALL LIGHT FOR NEEDS. PT AND PT SPOUSE VERBALIZE UNDERSTANDING. PT STATES "I JUST WANT TO MAKE SURE THAT I GET A DINNER TRAY". PT INFORMED OF DIET. PT DENIES PRESENCE OF PAIN/N/V/DIZZINESS/SOB/DYSPNEA AT THIS TIME. BED IS IN THE LOWEST POSITION. CALL LIGHT AND BEDSIDE TABLE ARE WITHIN REACH. SIDE RAILS X 2. PT AND PT SPOUSE DENY FURTHER NEEDS. WILL CONT TO MONITOR.
--- NOTE | 2020-06-17 02:37 | NUR ---
ASSESSED AT THE BEGINNING OF THE SHIFT. PT IS ALERT AND ORIENTED, ABLE TO VERBALIZE NEEDS. SHE IS NOT COMFUSED AND IS ABLE TO GET UP TO THE BATHROOM WITH MININAL ASSIST. HER TELEMETRY SHOWS 56 [address] AND SHE IS USING HER IS AND RESTING QUIET. THERE HAVE BEEN NO COMPLAINTS OF DISCOMFORT OR PROBLEMS WITH SYNCOPE THIS EVENING.
[2020-06-17 05:00] LABS: BASOPHILS 0.3 % (0-2); EOSINOPHILS 1.5 % (0-7); HEMATOCRIT 39.3 % (36.0-48.0); HEMOGLOBIN 13.2 g/dL (12-16); IMMATURE GRANULOCYTES 0.1 % (0-5); LYMPHOCYTE ABS# 3.19 10x3/uL (1.18-3.74); LYMPHOCYTES 40.7 % (15-50); MCH 31.8 pg (26.0-34.0); MCHC 33.6 g/dL (31.0-37.0); MCV 94.7 fL (80.0-100.0); MEAN PLATELET VOLUME 11.1 fL (7.4-10.4); MONOCYTES 5.7 % (2-11); NEUTROPHIL ABS# 4.05 10x3/uL (1.56-6.13); NEUTROPHILS 51.7 % (40-80); PLATELET COUNT 213 10x3/uL (130-400); RBC 4.15 10x6/uL (4.00-5.40); RDW 15.2 % (11.5-14.5)
[2020-06-17 05:02] LABS: WBC 7.8 10x3/uL (4.8-10.8)
[2020-06-17 05:54] LABS: ALBUMIN 3.3 g/dL (3.4-5.0); ANION GAP 10.3 mmol/L (8-16); BILIRUBIN - TOTAL 0.54 mg/dL (0.2-1.3); CALCIUM 9.6 mg/dL (8.5-10.1); CARBON DIOXIDE 29.2 mmol/L (21.0-32.0); MAGNESIUM - SERUM 1.9 mg/dL (1.8-2.4); POTASSIUM - SERUM 4.5 mmol/L (3.5-5.1); PROTEIN - SERUM 6.7 g/dL (6.4-8.2)
--- NOTE | 2020-06-17 07:46 | NUR ---
ALERT AND ORIENTED. ASSESSMENT COMPLETE. DENIES NEEDS. BED LOW. CALL ALLISON AND PERSONAL ITEMS IN REACH. WILL CONTINUE TO MONITOR.
[2020-06-17 10:42] VITALS: BP 137/79
[2020-06-17 13:29] VITALS: BP 130/78
--- NOTE | 2020-06-17 14:16 | NUR ---
Nutrition Follow-up: Diet: Cardiac PO intake: 100%, she reports that her appetite is good and that she is eating most of her meal trays Last BM: 06/16/20 Wt: 134.4# (06/16/20); Admit Wt: 124# (06/13/20) Meds noted: miralax Labs reviewed Recommend continue current diet. Will continue to honor food preferences within diet restrictions. RD will follow-up within 7 days.
[2020-06-17 17:41] VITALS: BP 126/81
[2020-06-17 20:35] VITALS: BP 119/64
--- NOTE | 2020-06-17 23:39 | NUR ---
I have reviewed this patient and I concur with the Shift Assessment completed by the Licensed Practical Nurse today this shift.
[2020-06-18 01:01] VITALS: BP 122/77
[2020-06-18 05:53] VITALS: BP 118/78
[2020-06-18 06:38] LABS: BASOPHILS 0.3 % (0-2); EOSINOPHILS 1.6 % (0-7); HEMATOCRIT 42.5 % (36.0-48.0); HEMOGLOBIN 14.6 g/dL (12-16); IMMATURE GRANULOCYTES 0.1 % (0-5); LYMPHOCYTE ABS# 2.76 10x3/uL (1.18-3.74); LYMPHOCYTES 37.5 % (15-50); MCH 31.9 pg (26.0-34.0); MCHC 34.4 g/dL (31.0-37.0); MEAN PLATELET VOLUME 10.8 fL (7.4-10.4); NEUTROPHIL ABS# 3.86 10x3/uL (1.56-6.13); NEUTROPHILS 52.5 % (40-80); PLATELET COUNT 186 10x3/uL (130-400); RBC 4.57 10x6/uL (4.00-5.40); RDW 14.8 % (11.5-14.5); WBC 7.4 10x3/uL (4.8-10.8)
[2020-06-18 07:10] LABS: ALBUMIN 3.3 g/dL (3.4-5.0); ANION GAP 12.6 mmol/L (8-16); BILIRUBIN - TOTAL 0.77 mg/dL (0.2-1.3); CALCIUM 9.3 mg/dL (8.5-10.1); CARBON DIOXIDE 26.7 mmol/L (21.0-32.0); MAGNESIUM - SERUM 1.9 mg/dL (1.8-2.4); POTASSIUM - SERUM 4.3 mmol/L (3.5-5.1); PROTEIN - SERUM 7.1 g/dL (6.4-8.2)
--- NOTE | 2020-06-18 07:34 | NUR ---
RECIEVED BEDSIDE REPORT. AWAKE, SITTING UP IN BED. DENIES NEEDS AT THIS TIME. BED LOW POSITION, WILL CONTINUE TO MONITOR.
[2020-06-18 09:07] VITALS: BP 122/82
[2020-06-18 11:45] VITALS: BP 138/87
[2020-06-18] MEDS ORDERED: PROTONIX40 MG PO (13:14)
[2020-06-18] MEDS ORDERED: MIRALAX17 GM PO (13:14)
--- NOTE | 2020-06-18 14:33 | NUR ---
DISCHARGE PAPERS COMPLETE. NO FURTHER QUESTIONS. IV CATH REMOVED, CATH TIP INTACT. GATHERED BELONGINGS. LEFT UNIT VIA WHEELCHAIR TO HOME.
--- NOTE | 2020-06-18 16:18 | MORECARE ---
CASE MANAGEMENT DISCHARGE SUMMARY PATIENT: MACARENA LUCIO UNIT: [id number] ADM DATE: 06/13/20 AGE: 59 : 58 SEX: F ROOM/BED: D.2224 AUTHOR: YESY,DOC PHYSICIAN: REFERRING PHYSICIAN: ARTIE HILL MD DATE OF SERVICE: 06/18/20 Case Management Discharge Planning Summary COMMENTS ENTERED DATE: 06/18/20 16:15 CT COMMENT TYPE: Discharge Planning REVIEWER: Cm Thompson CM met with patient to complete DC plan and to evaluate needs. Patient lives independently with her , James Lucio, . Patient stated that their home is safe and has electricity and running water. Patient stated that she has no problems paying for medications and she fills her medications at [facility]. Patient stated that her primary care physician is Dr. Vega. At discharge, the patient plans to return home and feels this is a safe discharge. CM discussed availability of home health, rehab services, and medical equipment. Patient declined HHS, SNF, IPR, and DME. AKILA refusal signed and placed on chart. Patient voiced no other needs at this time and is satisfied with DC plan. Transportation provider at discharge will be with her , James. CM will continue to follow and will assist as needed with dc plans/needs. LAP REVIEW SUMMARY ANTICIPATED D/C DATE: 06/18/2020 EXPECTED LOS : 5 CASE STATUS: DCP Initiated INITIAL REVIEW: 06/13/2020 INITIAL REVIEWER: Cm Thompson FINAL DISCHARGE DISPOSITION: : FINAL REVIEWER: FINAL REVIEW DATE: LAP Focus Questions & Answers DCP Evaluation QUESTION: ANSWER Patient gives permission to discuss discharge plans with: (name, relationship and number) : , James Lucio, Patient's ability to cope with chronic illness : d. No chronic illness Patient's current cognitive status: : *Oriented to person, place, situation, time and present Family / Caregiver's ability to cope with chronic illness: : a. Adequate (ability to meet patient's medical needs, ensures patient attends medical appts.) Patient and/or caregiver agree upon recommended discharge plan? : Yes Physical Status: : Independent with ADL's Family / Caregiver's ability to cope with chronic illness: : a. Adequate (ability to meet patient's medical needs, ensures patient attends medical appts.) Functional screen assessment: : Basic needs can adequately be met by self Does the patient have the ability to pay for or attain post discharge needs / services? : Yes Living Arrangements: : Home with Spouse/Significant Other Is there a likelihood that the patient will require additional services to return to the preadmission environment? : No Equipment needed for post hospitalization: : None Baseline cognitive status: : *Oriented to person, place, situation, time and present Patient with capacity for self-care or can be cared for in same environment as prior to hospitalization? : Yes Medication Management: : Patient states can afford medications Medication Management: : Patient states can read and understand medication labels Pharmacy name(s): : [facility] Does Patient have transportation to get home and to follow-up medical appointments when discharged from the hospital? : Yes Would patient like to participate in any Care Coordination programs (if applicable): : Not applicable Does the patient have electricity at home? : Yes Does the patient have running water in their house? : Yes Equipment in use: : None Mental health screen: : No mental health history DCP Re-evaluation QUESTION: ANSWER Would patient like to participate in any Care Coordination programs (if applicable): : Not applicable PATIENT: MACARENA LUCIO ENCOUNTER: [id number] MEDICAL RECORD#: [id number] ADMISSION DATE: 06/13/2020 DISCHARGE DATE: 06/18/2020 ATTENDING MD: ARTIE BOWMAN : AGE: 59 MARITAL STATUS: M DC PLAN ID: [id number] FACILITY: [facility] PRINTED ON: 06/18/20 16:18 CT All edits/amendments must be made on the electronic document DICTATION DATE: 06/18/201617 ADMINISTRATIVE FELLOW: JESSENIA 06/18/201617 RPT#: [id number] DC DATE:06/18/20 STATUS: DIS IN [facility] [address] [place] [address] END OF REPORT
--- NOTE | 2020-06-20 16:26 | EEG ---
PATIENT:MACARENA JOSEPH MEDICAL RECORD: [id number] DATE OF : 58 LOCATION:D.222 D.MS ADMISSION DATE: 06/13/20 REFERRING PHYSICIAN: INTERPRETING PHYSICIAN: KOURTNEY ELAINE MD DATE OF SERVICE: 06/15/2020 DATE OF EE06/15/2020. ROOM: 2304. ORDERED BY: Dr. Elaine. CASE HISTORY: A 59-year-old female observed to display spells of change in responsiveness and twitching of torso and limbs with prior known history of spells of syncope and collapse. Known past history of sporadic Xanax use and marijuana use. MEDICATIONS: Include Keppra. PROCEDURE: EEG done as a routine bedside portable recording using the standard 10-20 international electrode system. A 16 channel was used with 17th as EKG. Photic stimulation done as activation procedure. DESCRIPTION: EEG opens with the patient awake with record displaying a fairly well-organized posterior dominant rhythm of 12 Hz with occasional beta activities. There was no slowing that would be expected soon after seizure. Occasional bilateral independent single theta slow waves and occasional bilateral independent single sharp waves were seen on the record. No epileptiform change such as spike polyspike or spike and wave was seen. Photic stimulation did not yield a photoparoxysmal response. IMPRESSION: Minimally to mildly abnormal EEG with nonspecific changes that might suggest mild cortical dysfunction. There is no evidence of underlying seizure disorder in this recording. TRANSINT:[id number] Voice Confirmation ID: [id number] DOCUMENT ID: [id number] KOURTNEY ELAINE MD at 1626 CC: [id number] DICTATION DATE: 06/15/20 1756 RECEIVING TANK OPERATOR: 06/16/20 0127 DIS IN 06/18/20 [facility] [address] [id number]
--- NOTE | 2020-06-20 17:03 | MORECARE ---
CASE MANAGEMENT DISCHARGE SUMMARY PATIENT: MACARENA LUCIO UNIT: [id number] ADM DATE: 06/13/20 AGE: 59 : 58 SEX: F ROOM/BED: D.2224 AUTHOR: YESY,DOC PHYSICIAN: REFERRING PHYSICIAN: ARTIE HILL MD DATE OF SERVICE: 06/20/20 Case Management Discharge Planning Summary COMMENTS ENTERED DATE: 06/18/20 16:15 CT COMMENT TYPE: Discharge Planning REVIEWER: Cm Thompson CM met with patient to complete DC plan and to evaluate needs. Patient lives independently with her , James Lucio, . Patient stated that their home is safe and has electricity and running water. Patient stated that she has no problems paying for medications and she fills her medications at [facility]. Patient stated that her primary care physician is Dr. Vega. At discharge, the patient plans to return home and feels this is a safe discharge. CM discussed availability of home health, rehab services, and medical equipment. Patient declined HHS, SNF, IPR, and DME. AKILA refusal signed and placed on chart. Patient voiced no other needs at this time and is satisfied with DC plan. Transportation provider at discharge will be with her , James. CM will continue to follow and will assist as needed with dc plans/needs. TNP REVIEW SUMMARY ANTICIPATED D/C DATE: 06/18/2020 EXPECTED LOS : 5 CASE STATUS: DCP Initiated INITIAL REVIEW: 06/13/2020 INITIAL REVIEWER: Cm Thompson FINAL DISCHARGE DISPOSITION: : FINAL REVIEWER: FINAL REVIEW DATE: TNP Focus Questions & Answers DCP Evaluation QUESTION: ANSWER Patient's current cognitive status: : *Oriented to person, place, situation, time and present Patient's ability to cope with chronic illness : d. No chronic illness Patient gives permission to discuss discharge plans with: (name, relationship and number) : , James Lucio, Patient and/or caregiver agree upon recommended discharge plan? : Yes Family / Caregiver's ability to cope with chronic illness: : a. Adequate (ability to meet patient's medical needs, ensures patient attends medical appts.) Functional screen assessment: : Basic needs can adequately be met by self Physical Status: : Independent with ADL's Does the patient have the ability to pay for or attain post discharge needs / services? : Yes Family / Caregiver's ability to cope with chronic illness: : a. Adequate (ability to meet patient's medical needs, ensures patient attends medical appts.) Equipment needed for post hospitalization: : None Is there a likelihood that the patient will require additional services to return to the preadmission environment? : No Living Arrangements: : Home with Spouse/Significant Other Baseline cognitive status: : *Oriented to person, place, situation, time and present Patient with capacity for self-care or can be cared for in same environment as prior to hospitalization? : Yes Medication Management: : Patient states can afford medications Medication Management: : Patient states can read and understand medication labels Pharmacy name(s): : [facility] Does Patient have transportation to get home and to follow-up medical appointments when discharged from the hospital? : Yes Would patient like to participate in any Care Coordination programs (if applicable): : Not applicable Does the patient have electricity at home? : Yes Does the patient have running water in their house? : Yes Equipment in use: : None Mental health screen: : No mental health history DCP Re-evaluation QUESTION: ANSWER Would patient like to participate in any Care Coordination programs (if applicable): : Not applicable PATIENT: MACARENA LUCIO ENCOUNTER: [id number] MEDICAL RECORD#: [id number] ADMISSION DATE: 06/13/2020 DISCHARGE DATE: 06/18/2020 ATTENDING MD: ARTIE BOWMAN : AGE: 59 MARITAL STATUS: M DC PLAN ID: [id number] FACILITY: [facility] PRINTED ON: 06/20/20 17:03 CT All edits/amendments must be made on the electronic document DICTATION DATE: 06/20/201702 PLANT BUYER: JESSENIA 06/20/201702 RPT#: [id number] DC DATE:06/18/20 STATUS: DIS IN [facility] [address] [place] [address] END OF REPORT
== END 2020-06-18 14:46 | disposition home or self-care (01) | DRG 312 ==
LOC: D.ER 20:04 → D.ICU 23:11 → D.MS 06-16 16:07
PROVIDERS: Family Medicine; Internal Medicine Cardiovascular Disease; ADMIT Family Medicine; ATTEND Family Medicine
DX: R55 Syncope and collapse (principal); J96.11 Chronic respiratory failure with hypoxia; I50.20 Unspecified systolic (congestive) heart failure; E83.52 Hypercalcemia; Z86.73 Personal history of transient ischemic attack (TIA), and cerebral infarction without residual deficits; I25.10 Atherosclerotic heart disease of native coronary artery without angina pectoris; I10 Essential (primary) hypertension; F12.90 Cannabis use, unspecified, uncomplicated; M06.9 Rheumatoid arthritis, unspecified; G89.29 Other chronic pain; M54.9 Dorsalgia, unspecified; J44.9 Chronic obstructive pulmonary disease, unspecified; G47.33 Obstructive sleep apnea (adult) (pediatric); I25.5 Ischemic cardiomyopathy; I65.21 Occlusion and stenosis of right carotid artery; I95.9 Hypotension, unspecified